=== PATIENT | male | born 1955 | race Caucasian/White ===

== ENCOUNTER 2017-02-19 07:28 | Inpatient (IN) | payer OTHER ==
[2017-02-19 07:28] VITALS: PULSE 128
[2017-02-19] MEDS ORDERED: Sodium Chloride 0.9% 1,000 ML IV STA (08:05)
[2017-02-19] MEDS ORDERED: Piperacillin/Tazobact 3.375 GM in Sodium Chloride 0.9% 100 ML IVPB STA (08:06)
--- NOTE | 2017-02-19 08:18 | ED PDOC ---
HPI: General Adult Time Seen by Provider: 02/19/17 07:35 Chief Complaint (Provider): lethargy History Per: Other (shelter ) History/Exam Limitations: clinical condition Onset/Duration Of Symptoms: Other (this morning ) Have you had recent travel within the past 21 days to any of the following countries: [place], [place], [place] or [place]?: No Additional Complaint(s): Edwin Anand is a 61 year old male, with an extensive previous medical history including osteomielitis, bipolar disorder, diabetes, pulmonary embolism s/p IVC filter, cardiac arrhythmia, paraplegia, sacral decubitus ulcer, colostomy and a recent intubation in [facility], who is sent to the ED from his shelter for lethargy that was noted this morning. Patient is unable to provide history secondary to lethargy. According to report provided from the shelter, patient was started on percocet yesterday and has multiple pressure ulcers with indwelling lopez catheter. PMD: none provide Past Medical History Reviewed: Historical Data, Nursing Documentation, Vital Signs Vital Signs: Last Vital Signs Temp 97.9 F 02/19/17 07:49 Pulse 70 02/19/17 09:39 Resp 16 02/19/17 07:49 BP 157/73 H 02/19/17 07:49 Pulse Ox 100 02/19/17 07:49 - Medical History PMH: Arthritis, Atrial Fibrillation, Benign Prostatic Hyperplasia, Bipolar Disorder, Cardia Arrhythmia, Depression, Diabetes, Gastritis, HTN, Hypercholesterolemia, Pulmonary Embolism Denies: Crohn's Disease, Diverticulitis, Gall Bladder Disease, HIV, Pancreatitis Other PMH: skin ulcers, osteomielitis - Surgical History Other surgeries: colostomy - Family History Family History: States: Unknown Family Hx - Living Arrangements Living Ar[facility]ements: [facility] - Immunization History Hx Tetanus Toxoid Vaccination: No Hx Influenza Vaccination: No Hx Pneumococcal Vaccination: No - Home Medications Home Medications: Ambulatory Orders Medication Instructions Recorded Acetaminophen [Tylenol 325mg tab] 650 mg PO Q6 12/20/16 Acetaminophen/Codeine 2 tab PO Q6H PRN 12/20/16 [Tylenol/Codeine 300 MG/30 MG] Albuterol/Ipratropium [Duoneb 3 3 ml IH Q6 12/20/16 mg/0.5 mg (3 ml) UD] Amino Acids/Protein Hydrolys 30 ml PO TID 12/20/16 [Pro-Stat Profile Liquid] Ascorbic Acid [C-500] 500 mg PO DAILY 12/20/16 Baclofen [Lioresal] 10 mg PO DAILY 12/20/16 Collagenase [Santyl] 250 units TP TID 12/20/16 Digoxin [Lanoxin] 125 mcg PO DAILY 12/20/16 Docusate [Colace] 100 mg PO DAILY 12/20/16 Epoetin Garry [Procrit] 10,000 unit IJ MWF 12/20/16 Ergocalciferol [Drisdol 50,000 50,000 iu PO DAILY 12/20/16 Intl Units Cap] Ertapenem [Invanz] 1 gm IV DAILY 12/20/16 Escitalopram [Lexapro] 5 mg PO DAILY 12/20/16 Ferrous Sulfate [Feosol] 325 mg PO DAILY 12/20/16 Guaifenesin [Adult Wal-Tussin] 100 mg PO Q6 PRN 12/20/16 Insulin Detemir [Levemir] 10 unit SC HS 12/20/16 Insulin Human Regular [Novolin R] 0 unit SC ACHS 12/20/16 Losartan [Cozaar] 100 mg PO DAILY 12/20/16 Multivitamin [Multivitamins] 1 tab PO DAILY 12/20/16 Nut.tx.gluc.intoler,Lac-Fr,Soy 237 ml PO TID 12/20/16 [Glucerna] OLANZapine [Zyprexa] 10 mg PO DAILY 12/20/16 Pantoprazole Sodium [Protonix] 40 mg PO DAILY 12/20/16 Polyethylene Glycol 3350 [Glycolax] 17 gm PO DAILY 12/20/16 Risperidone [Risperdal] 2 mg PO DAILY 12/20/16 Silver Sulfadiazine 1% [Silvadene 1 % TP HS 12/20/16 1%] Tamsulosin [Flomax] 0.4 mg PO DAILY 12/20/16 Aspirin [Ecotrin] 81 mg PO DAILY 01/15/17 Colistimethate [Coly-Mycin M] 150 mg IV Q36H vial 01/15/17 Epoetin Garry [Procrit] 10,000 unit SC QWK ml 01/15/17 Fluconazole [Diflucan] 200 mg PO BID tab 01/15/17 Insulin Aspart, Recombinant 0 unit SC ACHS unit 01/15/17 [Novolog] Losartan [Cozaar] 100 mg PO DAILY tab 01/15/17 Magnesium Oxide [Mag-Ox] 400 mg PO BID tab 01/15/17 Meropenem [Merrem IV] 500 mg IVPB Q12H vial 01/15/17 Pantoprazole [Protonix EC Tab] 40 mg PO DAILY ect 01/15/17 Potassium Chloride [K-Dur 20 mEq 20 meq PO DAILY tab 01/15/17 ER Tab] Rivaroxaban [Xarelto] 20 mg PO DAILY tab 01/15/17 Vitamin A & D [Vitamin A & D Oint 1 ea TOP BID 01/15/17 UD Foilpak] - Allergies Allergies/Adverse Reactions: Allergies Allergy/AdvReac Type Severity Reaction Status Date / Time levofloxacin [From Levaquin] Allergy SWELLING Verified 12/20/16 18:43 FISH AdvReac SWELLING Verified 12/20/16 18:43 Review of Systems Review Of Systems: ROS cannot be obtained secondary to pt's inabilty to answer questions. (history provided by shelter) Constitutional: Positive for: Other (lethargy ) Genitourinary Male: Positive for: Other (indwelling lopez catheter ) Skin: Positive for: Other (multiple ulcers ) Physical Exam - Reviewed Nursing Documentation Reviewed: Yes Vital Signs Reviewed: Yes - Physical Exam Appears: Positive for: Non-toxic. Negative for: Well (lethargic. responsive to painful stimuli by groaning ) Head Exam: Positive for: ATRAUMATIC, NORMAL INSPECTION, NORMOCEPHALIC Cardiovascular/Chest: Positive for: Irregularly Irregular Respiratory: Positive for: Rhonchi (bilaterally ). Negative for: Decreased Breath Sounds, Accessory Muscle Use, Wheezing, Respiratory Distress Gastrointestinal/Abdominal: Positive for: Bowel Sounds, Soft, Other (colostoy bag in place with brown stool in colostomy bag). Negative for: Tenderness, Mass , Distended, Guarding, Rebound Male Genital Exam: Positive for: other (indwelling lopez catheter draining cloudy urine. ) Extremity: Negative for: Normal ROM Neurologic/Psych: Positive for: Other (lethargy. quadriplegia with spasticity of the upper extremities ) Comments: Skin Exam: large 10 cm irregularly shaped sacral ulcer with granulated tissue and purulent base. 3 cm ulcer at the right hip with purulent material extremities with anterior excoriations and surrounding erythema right heel with 3 cm necrotic ulcer left heel with superficial ulceration and no discharge noted - Laboratory Results Result Diagrams: 02/19/17 08:30 02/19/17 08:30 - ECG ECG Rhythm: Positive for: Sinus Rhythm, Nonspecific Changes (ST) Rate: 70 (bpm) - Progress Re-evaluation Time: 09:00 Condition: Unchanged - Critical Care Total Time (In Min): 30 Medical Decision Making Medical Decision Making: Initial Impression: lethargy with multiple sources of possible sepsis including skin ulcers, indwelling lopez catheter and possible pneumonia. Patient was also started on opiate yesterday which would be the cause of lethargy. Patient will be worked up and treated for sepsis with IV vancomycin and Zosyn. Initial Plan: * VBG shock panel * EKG * labs * urine drug screen * CXR * IV NS 1,000 ml at 200 ml/hr * vancomycin 250 ml IV * zosyn 100 ml IV * blood culture * urine culture * wound culture * urinalysis * reevaluation 08:[address] Matthews who agrees with plan of treatment. Scribe Attestation: Documented by Surekha Garcia, acting as a scribe for Murali Ellsworth MD. Provider Scribe Attestation: All medical record entries made by the Scribe were at my direction and personally dictated by me. I have reviewed the chart and agree that the record accurately reflects my personal performance of the history, physical exam, medical decision making, and the department course for this patient. I have also personally directed, reviewed, and agree with the discharge instructions and disposition. Disposition - Clinical Impression Clinical Impression: Sepsis, UTI (urinary tract infection), Decubitus ulcer - Patient ED Disposition Is Patient to be Admitted: Yes - Disposition Disposition Time: 08:15 Condition: GUARDED - Pt Status Changed To: Hospital Disposition Of: Inpatient - Admit Certification Admit to Inpatient:: After my assessment, the patient will require hospitalization for at least two midnights. This is because of the severity of symptoms shown, intensity of services needed, and/or the medical risk in this patient being treated as an outpatient. - POA Present On Arrival: Pressure Ulcer
[2017-02-19] MEDS ORDERED: Vancomycin 1 g Inj ONE (09:07)
[2017-02-19] MEDS ORDERED: Piperacillin/Tazobact 3.375 gm Inj IVPB ONE (09:07)
[2017-02-19 09:23] LABS: BASO # 0.1 K/uL (0.0-0.2); BASO % 0.5 % (0.0-2.0); EOS # 0.2 K/uL (0.0-0.7); LYMPH # 1.1 K/uL (1.0-4.3); LYMPH % 9.7 % (20.0-40.0); MEAN CELL VOLUME 89.9 fl (80.0-94.0); MEAN CORPUSCULAR HEMOGLOBIN 29.3 pg (27.0-31.0); MEAN CORPUSCULAR HGB CONC 32.6 g/dL (33.0-37.0); MEAN PLATELET VOLUME 9.1 fl (7.2-11.7); MONO # 0.9 K/uL (0.0-0.8); MONO % 7.6 % (0.0-10.0); NEUT # 9.2 K/uL (1.8-7.0); NEUT % 80.2 % (50.0-75.0); NRBC % 0.1 % (0.0-0.0); PLATELET COUNT 234 K/uL (130-400); RED CELL DISTRIBUTION WIDTH 17.3 % (11.5-14.5); WHITE BLOOD COUNT 11.5 K/uL (4.8-10.8)
[2017-02-19 09:38] LABS: ALB/GLOB RATIO 0.6 (1.0-2.1); ALKALINE PHOSPHATASE 115 U/L (38-126); ALT/SGPT 28 U/L (21-72); AST/SGOT 23 U/L (17-59); BILIRUBIN,TOTAL 0.4 mg/dl (0.2-1.3); BLOOD UREA NITROGEN 24 mg/dl (9-20); CALCIUM 8.4 mg/dL (8.4-10.2); CARBON DIOXIDE 20 mmol/L (22-30); CHLORIDE 109 mmol/L (98-107); GFR AFRICAN-AMERICAN > 60; GLUCOSE,RANDOM 111 mg/dL (75-110); POTASSIUM 3.3 MMOL/L (3.6-5.0); SODIUM 138 mmol/l (132-148); TOTAL PROTEIN 7.2 G/DL (6.3-8.2)
[2017-02-19 09:40] LABS: VENOUS BLOOD GAS BASE EXCESS -4.3 mmol/L (0.0-2.0); VENOUS BLOOD GAS PCO2 48 mmHg (40-60); VENOUS BLOOD PH 7.28 (7.32-7.43)
[2017-02-19] MEDS ORDERED: Potassium CL 10mEq/100ml 100 ML IVPB ONE (09:43)
[2017-02-19 09:57] LABS: RBC URINE 18 /hpf (0-3); URINE BACTERIA FEW (<OCC); URINE BILIRUBIN NEGATIVE (NEGATIVE); URINE BLOOD MODERATE (NEGATIVE); URINE COLOR YELLOW (YELLOW); URINE GLUCOSE (UA) 50 mg/dL (Normal); URINE KETONE NEGATIVE (NEGATIVE); URINE LEUKOCYTE ESTERASE LARGE Leu/uL (Negative); URINE PROTEIN 100 mg/dL (NEGATIVE); URINE UROBILINOGEN 0.2-1.0 mg/dL (0.2-1.0); WBC CLUMPS FEW /hpf; WBC URINE 49 /hpf (0-5)
[2017-02-19 10:33] LABS: EOSINOPHIL 2 % (0-7); MYELOCYTE 1 % (0-0); NEUTROPHIL 81 % (42-75); TOTAL CELLS COUNTED 100
[2017-02-19 10:34] LABS: GIANT PLATELETS PRESENT
[2017-02-19] MEDS ORDERED: Oxycodone/Acetaminophen 5/325 mg Tab PO PRN (11:23)
[2017-02-19] MEDS ORDERED: Glucagon Recombinant 1 mg Inj IM PRN (11:32)
[2017-02-19 12:37] VITALS: BMI 28.7
[2017-02-19 12:56] LABS: MAGNESIUM 1.8 MG/DL (1.6-2.3); PHOSPHOROUS 3.9 mg/dl (2.5-4.5)
--- NOTE | 2017-02-19 13:18 | CARD ---
APPROVED REPORT EKG Measurement Heart [id number] <Conclusion> Normal sinus rhythm Normal ECG
--- NOTE | 2017-02-19 13:19 | RAD ---
HISTORY: cough COMPARISON: No prior. FINDINGS: LUNGS: Limited due to patient rotation. Left effusion or In situ left-sided PICC line with tip apparently in the SVC PLEURA: Question small chronic pleural thickening. . . No pneumothorax apparent. CARDIOVASCULAR: Possible cardiomegaly OSSEOUS STRUCTURES: No significant abnormalities. VISUALIZED UPPER ABDOMEN: Normal. OTHER FINDINGS: None. IMPRESSION: Limited study due to patient rotation. Questionable small left-sided effusion and/or chronic pleural thickening. . In situ PICC line
[2017-02-19] MEDS: Cefepime 2 GM in Sodium Chloride 0.9% 100 ML IVPB SCH ×2 (14:00→21:46)
--- NOTE | 2017-02-19 14:04 | CT ---
PROCEDURE: CT HEAD WITHOUT CONTRAST. HISTORY: code stroke ams COMPARISON: None available. TECHNIQUE: Axial computed tomography images were obtained through the head/brain without intravenous contrast. Radiation dose: Total exam DLP = 1510.26 mGy-cm. This CT exam was performed using one or more of the following dose reduction techniques: Automated exposure control, adjustment of the mA and/or kV according to patient size, and/or use of iterative reconstruction technique. FINDINGS: HEMORRHAGE: No acute parenchymal, subarachnoid or extra-axial hemorrhage. BRAIN: Mild chronic periventricular white matter ischemic changes. . Note made of a few small calcifications along the posterior cerebellum bilaterally of uncertain etiology. Mild generalized volume loss. VENTRICLES: No evidence of obstructive hydrocephalus. CALVARIUM: Unremarkable. PARANASAL SINUSES: Minimal mucosal thickening left chamber sphenoid sinus. MASTOID AIR CELLS: Unremarkable as visualized. No inflammatory changes. OTHER FINDINGS: None. IMPRESSION: No acute intracranial hemorrhage. Mild chronic white matter ischemic changes. Mild volume loss. Note that the possibility of a small hyperacute infarct may not be visualized on the initial CT imaging. Clinic correlation recommended. Findings discussed with Dr. Mejia at approximately 1:59 p.m. with written down and read back verification.
[2017-02-19 14:12] LABS: BASO # 0.1 K/uL (0.0-0.2); BASO % 0.5 % (0.0-2.0); EOS # 0.1 K/uL (0.0-0.7); HEMATOCRIT 30.5 % (35.0-51.0); LYMPH # 0.9 K/uL (1.0-4.3); LYMPH % 7.1 % (20.0-40.0); MEAN CELL VOLUME 89.5 fl (80.0-94.0); MEAN CORPUSCULAR HEMOGLOBIN 29.1 pg (27.0-31.0); MEAN CORPUSCULAR HGB CONC 32.6 g/dL (33.0-37.0); MEAN PLATELET VOLUME 8.4 fl (7.2-11.7); MONO # 0.8 K/uL (0.0-0.8); MONO % 6.7 % (0.0-10.0); NEUT # 10.4 K/uL (1.8-7.0); NEUT % 84.7 % (50.0-75.0); NRBC % 0.1 % (0.0-0.0); RED CELL DISTRIBUTION WIDTH 17.1 % (11.5-14.5); WHITE BLOOD COUNT 12.3 K/uL (4.8-10.8)
[2017-02-19 14:27] LABS: ALB/GLOB RATIO 0.6 (1.0-2.1); ALKALINE PHOSPHATASE 105 U/L (38-126); ALT/SGPT 29 U/L (21-72); AST/SGOT 26 U/L (17-59); BILIRUBIN,TOTAL 0.4 mg/dl (0.2-1.3); BLOOD UREA NITROGEN 25 mg/dl (9-20); CALCIUM 8.2 mg/dL (8.4-10.2); CARBON DIOXIDE 21 mmol/L (22-30); CHLORIDE 110 mmol/L (98-107); CHOLESTEROL 117 mg/dL (0-199); GFR AFRICAN-AMERICAN > 60; GLUCOSE,RANDOM 93 mg/dL (75-110); POTASSIUM 3.5 MMOL/L (3.6-5.0); SODIUM 139 mmol/l (132-148); TOTAL PROTEIN 6.7 G/DL (6.3-8.2)
--- NOTE | 2017-02-19 14:27 | PCM.RRTMUL ---
<Jonh Cisneros - Last Filed: 02/19/17 14:25> SENIOR QA ENGINEER Nurse Assessment - Situation SENIOR QA ENGINEER Responder Arrival Time:: 13:11 Location:: [address] [place] [address] Room Number:: [id number] SENIOR QA ENGINEER Reason for Call: Change in Mental Status SENIOR QA ENGINEER Called By: RN, Physician - IV IV Inserted during SENIOR QA ENGINEER?: No - Respiratory Oxygen Delivery Method:: Nasal Cannula - Ventilator Settings Ventilator Respiratory Rate Setting:: 14 Ventilator Tidal Volume Setting:: 500 - Diagnostic Test Ordered EKG:: Yes Chest X-Ray:: Yes CT Scan:: Yes (CODE STROKE HEAD W/O CONTRAST) - Stat Labs Ordered SENIOR QA ENGINEER Stat Labs Ordered:: CBC, BMP, PT/PTT, TROPONIN, LACTIC ACID, BLOOD C&S X2 - Vital Signs Blood Pressure:: 91/56 Pulse Rate:: 72 Respiratory Rate:: 18 Temperature:: 96.4 F - [place] Coma Scale Coma Scale Eye Opening:: To pain Coma Scale Motor:: Movement to pain stimulus Coma Scale Verbal:: No response Coma Scale Total:: 8 - Recommendations 5) SENIOR QA ENGINEER Level of Care Recommendations: Remain in current setting 6) Notifications: Attending Physician, Consultations (neurology) I.Reason for SENIOR QA ENGINEER - A) Acute Change in Patient: (Select all that apply): Acute change in mental status - Constitutional Appears: Non-toxic, No Acute Distress - Head Head Exam: ATRAUMATIC, NORMAL INSPECTION, NORMOCEPHALIC - Eyes Eye Exam: Normal appearance, PERRL - Respiratory Exam Respiratory Exam: Clear to Ausculation Bilateral, NORMAL BREATHING PATTERN - Cardiovascular Exam Cardiovascular Exam: REGULAR RHYTHM, RRR, +S1, +S2 - GI/Abdominal Exam GI & Abdominal Exam: Soft, Normal Bowel Sounds. absent: Tenderness - Neurological Exam Neurological Exam: Altered, Awake. absent: Alert, Oriented x3 - Extremities Exam Additional comments: multiple decubitus ulcers throughout lower extremities Plan - B. Assessment of Findings&Treatment Plan SENIOR QA ENGINEER called for change in mental status S: 61 year old M w/ PMHx of osteomyelitis, bipolar disorder, diabetes, pulmonary embolism s/p IVC filter, cardiac arrhythmia, paraplegia, sacral decubitus ulcer, colostomy and a recent intubation in [facility] was sent to the ED from senior care ([place]) due to lethargy. Patient was evaluated in ED, lethargic, with multiple decubiti, UTI and admitted to Telemetry. Patient was transferred to [facility] in same state. No fever or hemodynamic instability since arrival to ED. However, RN noted patient now awake though non-verbal and upper extremities contraction with involuntary movements. RN called senior care, apparently patient was alert/oriented and able to speak with staff. No CT Head result available. O: Vitals as above, stable, no abnormalities General: Awake, altered Eyes: PERRL, constricted pupils, blinks spontaneously Lungs: CTABL Heart: RRR, S1/S2 present Abdomen: Soft, non-tender, non-distended, BS present Neuro: Non-verbal, opens eyes to painful stimuli (sternal rub), involuntary movement of contracted upper extremities noted A/P: 61 yo male with multiple comorbidities including PE, arrythmia, paraplegia with AMS and involuntary contractions of upper extremities. Stroke vs Seizure vs Sepsis -CODE STROKE CALLED -CBC -CMP -LIPID PANEL -HGBA1C -PT/PTT/INR -TROPONIN -BLOOD CULTURE -LACTATE -EKG -EEG -CXR -CT HEAD W/O CONTRAST -NEUROLOGY CONSULTED, SPOKE WITH DR. PATEL REGARDING NEGATIVE ACUTE INTRACRANIAL BLEED RESULT OF CT HEAD, WILL COME EVALUATE PATIENT -NPO -CASE SEEN AND DISCUSSED WITH HOSPITALIST CURING PRESS OPERATOR NIHSS Stroke Scale - Date/Time Evaluation Performed Date Performed: 02/19/17 Time Performed: 13:15 When Was NIHSS Performed: Code Stroke - How Severe is the Stroke Level of Consciousness: 2=Obtunded LOC to Questions: 2=Neither correct LOC to commands: 2=Neither correct Best Gaze: 1=Partial gaze palsy Facial: 0=Normal Motor Arm - Left: 3=No effort against gravity (falls immediately) Motor Arm - Right: 3=No effort against gravity (falls immediately) Motor Leg - Left: 3=No effort against gravity (falls immediately) Motor Leg - Right: 3=No effort against gravity (falls immediately) <Hansa Carlisle - Last Filed: 02/19/17 15:08> NIHSS Stroke Scale - How Severe is the Stroke Limb Ataxia: 0=Absent Sensory: 2=Severe to total loss Best Language: 3=Mute Dysarthia: 2=Severe, near unintelligible or worse Extinction & Inattention (Neglect): 2=Profound neglect(does not recognize own hand or orients to one side) Attending/Attestation - Attestation I have personally seen and examined this patient.: Yes I have fully participated in the care of the patient.: Yes I have reviewed all pertinent clinical information, including history, physical exam and plan: Yes
[2017-02-19 15:16] LABS: THYROID STIMULATING HORMONE 3.32 mIU/ML (0.46-4.68)
--- NOTE | 2017-02-19 15:19 | RAD ---
PROCEDURE: CHEST RADIOGRAPH, 1 VIEW HISTORY: ams COMPARISON: Comparison chest 02/19/2017 FINDINGS: LUNGS: Study remain somewhat limited due to persistent left-sided patient rotation evaluation. In addition, there has been exclusion of both CP angles from the film. The suspect mild left basilar atelectasis. PLEURA: No pneumothorax or pleural fluid seen. CARDIOVASCULAR: Questionable cardiomegaly. OSSEOUS STRUCTURES: Degenerative changes of both shoulder girdles. VISUALIZED UPPER ABDOMEN: Normal. OTHER FINDINGS: None. IMPRESSION: Limited study. Due to patient rotation to the left side. Suspect mild left basilar atelectasis.
[2017-02-19 15:36] LABS: PARTIAL THROMBOPLASTIN TIME 30.8 Seconds (25.6-37.1)
--- NOTE | 2017-02-19 15:42 | EEG ---
DATE: 02/19/2017 This is an EEG. DIAGNOSIS: Altered mental status. MEDICATIONS: Reviewed via nurse's reconciliation sheet. CONDITION OF THIS RECORDING: Drowsy. INTERPRETATION: This is a 16-channel international recording. The background activity is composed o f 6-7 cycles per second. There was a small amount of beta activity of 16-20 cycles per second seen i n this tracing. There was increased amount of theta activity 5-7 cycles per second seen in this trac ing. Drowsiness was characterized by mixed beta and theta activities. Sleep was characterized by ve rtex transient waves, sleep spindles and bilateral slowing. Photic stimulation showed no change in t he tracing. paroxysmal activity noted in this recording. CONCLUSION: Abnormal electroencephalogram due to presence of diffuse slowing throughout the EEG cons istent with mild bilateral cerebral dysfunction. Please clinically correlate. No evidence of any se izure-like activity. Clint Kinney MD cc: [id number] TT: 02/19/2017 15:41:58 Confirmation # [id number] Dictation # [id number] cristobal
--- NOTE | 2017-02-19 16:02 | CON ---
DATE: 02/19/2017 CHIEF COMPLAINT: Altered mental status. HISTORY OF PRESENT ILLNESS: This is a 61-year-old man with history of osteomyelitis, bipolar disorde r, diabetes, pulmonary embolism, status post IVC filter, cardiac arrhythmia, paraplegia, sacral decub itus ulcers, colostomy, recently was intubated in [facility] and sent home, was [facility] the ER to the [facility] in [place] because of lethargy. The patient was given Percocet at the [facility] for pain. He is paraplegic and has spasticity residual. He is very lethargic but opens eyes to voice, tracks to voice. His EEG was done and showed diffuse slowing throughout the EEG, no evide nce of epileptiform activity, consistent with bilateral cerebral dysfunction. He was found to have e levated white count of 12.3. He has urinary tract infection. He is hypokalemic as well as elevated BUN and dehydrated and he has drop in blood pressures of 91/56. PAST MEDICAL HISTORY: History of diabetes, history of PE, status post IVC filter, paraplegia, cardia c arrhythmia, sacral decubitus ulcer, colostomy, recent history of intubation, status post IVC filter , osteomyelitis, bipolar disorder, type 2 diabetes mellitus. REVIEW OF SYSTEMS: A 14-point review of systems is negative except the HPI. ALLERGIES: LEVOFLOXACIN AND FISH. MEDICATIONS: Reviewed via nurse's reconciliation sheet. SOCIAL HISTORY: No illicit drug use, smoking, or ETOH abuse. FAMILY HISTORY: Noncontributory. PHYSICAL EXAMINATION: VITAL SIGNS: Temperature 96.4, pulse rate 72, blood pressure 91/56, respiratory rate of 18, oxygen 9 3% via room air. GENERAL: The patient is sitting up in bed, drowsy, no acute distress. HEENT: Atraumatic, normocephalic. PERRLA. Extraocular muscles intact. NECK: Supple, no JVD, no adenopathy noted. LUNGS: Clear to auscultation. No adventitious sounds. HEART: S1, S2, normal rate and rhythm. No murmurs, rubs, or gallops. ABDOMEN: Soft, nontender, nondistended. Bowel sounds present. EXTREMITIES: No clubbing, no cyanosis. Peripheral pulses 2+ felt bilaterally. He has 1+ trace sweta a. He has multiple sacral decubiti seen on buttocks. NEUROLOGIC: The patient is drowsy, no distress. Speech is hypophonic. Cranial nerves II-XII are in tact. Motor exam: Paraplegic as well as increased spasticity in the upper and lower extremities. Se nsory exam: Withdraws to localized noxious stimulus. Toes are downgoing bilaterally. DTRs are 1+ t hroughout, absent at the ankles. COORDINATION AND GAIT: Deferred for now. LABORATORY DATA: WBC is 12.3, hemoglobin 9.9, hematocrit 30.5, platelet count 247. Sodium 139, pota ssium 3.5, chloride 110, carbon dioxide 21, BUN of 25, creatinine 0.9, random glucose of 93. ASSESSMENT AND PLAN: This is a 61-year-old man with history of type 2 diabetes mellitus, history of osteomyelitis, history of atrial fibrillation, history of pulmonary embolism, status post inferior ve na cava filter, bipolar disorder, came in being lethargic at the [facility] and was given Per cocet for sacral decubitus pain. Currently, he has elevated white count and had low systolic a nd diastolic blood pressures and low electrolytes, was very lethargic and code stroke was called. Th is is not a code stroke. This is more of a toxic metabolic encephalopathy. His EEG showed mild diff use slowing without any epileptiform activity consistent with bilateral cerebral dysfunction. Likely his altered mental status is secondary to toxic metabolic encephalopathy superimposed on underlying deconditioned state and chronic medical conditions. He is quadriplegic. He is responding neurologic ally to simple commands and follows commands to voice and tracks. At this time, recommend: 1. Get blood cultures. 2. He has underlying urinary tract infection. Give prophylactic antibiotics. 3. Monitor his electrolytes and correct accordingly. 4. Keep his blood pressures systolic above 120. He likely had transient cerebral hypoperfusion to t he brain which also caused him to be lethargic. 5. Stabilize the patient and repeat a CAT scan in 24 hours. At this time, continue with current pre sent medical management. Thank you for this consult. Clint Kinney MD cc: [id number] TT: 02/19/2017 16:02:14 Confirmation # [id number] Dictation # [id number] rn
[2017-02-19] MEDS: Insulin Regular 100 units/ml SC SCH ×2 (17:00→21:48)
[2017-02-19] MEDS: Sodium Chloride 0.9% 1,000 ML IV SCH (17:00)
[2017-02-19] MEDS: Magnesium Oxide 400 mg Tab UD PO SCH (18:00)
--- NOTE | 2017-02-19 19:46 | CP.PCM.CON ---
History of Present Illness - History of Present Illness History of Present Illness: CONSULT NOTE FOR DR. QUINTEROS 61M presents to [facility] with altered mental status. Surgery consulted for Sacral/ gluteal decubitus. Patient is paraplegic and live in a senior care [facility]. According to employees of [facility], patient was well aware and was able to converse with them while in senior care. He was given a dose of percocet at the senior care and then began to have altered mental status. He is current awake but does not respond to commands. PMH/PSH: DM, PE, paraplegic, osteomyelitis, bipolar PSH: Colostomy, IVC Filter Social: denies tobacco, alcohol, illicit drug use as per chart Allergies: Levofloxacin and fish as per chart Past Patient History - Infectious Disease Hx of Infectious Diseases: C.diff, MRSA - Past Medical History & Family History Past Medical History?: Yes - Past Social History Smoking Status: Never Smoked - CARDIAC Hx Atrial Fibrillation: Yes Hx Cardia Arrhythmia: Yes Hx Hypercholesterolemia: Yes Hx Hypertension: Yes - PULMONARY Hx Pulmonary Embolism: Yes - RENAL Hx Renal Failure: Yes - ENDOCRINE/METABOLIC Hx Endocrine Disorders: Yes - HEMATOLOGICAL/ONCOLOGICAL Hx Human Immunodeficiency Virus (HIV): No - MUSCULOSKELETAL/RHEUMATOLOGICAL Hx Arthritis: Yes - GASTROINTESTINAL Hx Crohn's Disease: No Hx Diverticulitis: No Hx Gall Bladder Disease: No Hx Gastritis: Yes Hx Pancreatitis: No - GENITOURINARY/GYNECOLOGICAL Hx Genitourinary Disorders: Yes - PSYCHIATRIC Hx Bipolar Disorder: Yes Hx Depression: Yes - SURGICAL HISTORY Hx Orthopedic Surgery: Yes (Right femoral nailing) - ANESTHESIA Hx Anesthesia: Yes Hx Anesthesia Reactions: No Meds Allergies/Adverse Reactions: Allergies Allergy/AdvReac Type Severity Reaction Status Date / Time levofloxacin [From Levaquin] Allergy SWELLING Verified 12/20/16 18:43 FISH AdvReac SWELLING Verified 12/20/16 18:43 - Medications Medications: Current Medications Apixaban (Eliquis) 2.5 mg PO BID@0900,2100 [facility] PRN Reason: Protocol Baclofen (Lioresal) 10 mg PO DAILY [facility] Collagenase (Santyl) 1 applic TOP DAILY [facility] Cyanocobalamin (Vitamin B12 1000 Mcg Tab) 1,000 mcg PO DAILY [facility] Dextrose (Dextrose 50% Inj) 0 ml IV STAT PRN; Protocol PRN Reason: Hyglycemia Protocol Dextrose (Glutose 15) 0 gm PO ONCE PRN; Protocol PRN Reason: Hypoglycemia Protocol Escitalopram Oxalate (Lexapro) 5 mg PO DAILY [facility] Folic Acid (Folic Acid) 1 mg PO DAILY [facility] Glucagon (Glucagen Diagnostic Kit) 0 mg IM STAT PRN; Protocol PRN Reason: Hypoglycemia Protocol Vancomycin HCl 750 mg/ Sodium (Chloride) 250 mls @ 166.667 mls/hr IVPB Q12 [facility] Cefepime HCl 2 gm/ Sodium (Chloride) 100 mls @ 100 mls/hr IVPB Q12 [facility] Last Admin: 02/19/17 14:00 Dose: 100 mls/hr Sodium Chloride (Sodium Chloride 0.9%) 1,000 mls @ 150 mls/hr IV .Q6H40M [facility] Stop: 02/20/17 16:14 Last Admin: 02/19/17 17:00 Dose: 150 mls/hr Insulin Detemir (Levemir) 10 units SC HS [facility] Insulin Human Regular (Humulin R) 0 units SC ACHS [facility] PRN Reason: Protocol Last Admin: 02/19/17 17:00 Dose: Not Given Magnesium Oxide (Mag-Ox) 400 mg PO BID [facility] Last Admin: 02/19/17 18:00 Dose: Not Given Metoprolol Tartrate (Lopressor) 12.5 mg PO Q12H [facility] Last Admin: 02/19/17 13:30 Dose: Not Given Olanzapine (Zyprexa) 10 mg PO DAILY [facility] Pantoprazole Sodium (Protonix Ec Tab) 40 mg PO DAILY [facility] Potassium Chloride (K-Dur 20 Meq Er Tab) 20 meq PO DAILY [facility] Tamsulosin HCl (Flomax) 0.4 mg PO DAILY [facility] Zinc Sulfate (Zinc Sulfate 220 Mg Cap) 220 mg PO DAILY [facility] Physical Exam - Constitutional Appears: Chronically Ill Additional comments: resting, comfortable - Head Exam Head Exam: ATRAUMATIC - ENT Exam ENT Exam: Mucous Membranes Dry - Respiratory Exam Respiratory Exam: Clear to Auscultation Bilateral, NORMAL BREATHING PATTERN - Cardiovascular Exam Cardiovascular Exam: REGULAR RHYTHM, +S1, +S2 - GI/Abdominal Exam GI & Abdominal Exam: Soft. absent: Distended, Firm, Guarding, Rebound, Rigid, Tenderness - Rectal Exam Additional comments: - stage 4 gluteal and sacral ulcers, connected and encompassing the whole gluteal region necrotic tissue on multiple area of wound. right hip stage 3 ulcer. - current dressing on - wet to dry - Extremities Exam Additional comments: LE/UE muscles wasting. UE contractures - Neurological Exam Neurological exam: Altered - Psychiatric Exam Psychiatric exam: Agitated - Skin Additional comments: Large stage 4 sacral/gluteal ulcer Results - Vital Signs Recent Vital Signs: Last Vital Signs Temp 97.2 F L 02/19/17 19:42 Pulse 64 02/19/17 19:42 Resp 20 02/19/17 19:42 BP 127/76 02/19/17 19:42 Pulse Ox 100 02/19/17 19:42 - Labs Result Diagrams: 02/21/17 03:50 02/21/17 03:50 Labs: Laboratory Results - last 24 hr 02/19/17 02/19/17 02/19/17 09:16 09:16 09:42 WBC RBC Hgb Hct MCV MCH MCHC RDW Plt Count MPV Neut % (Auto) Lymph % (Auto) Hall % (Auto) Eos % (Auto) Baso % (Auto) Neut # Lymph # Hall # Eos # Baso # PT INR APTT pO2 35 VBG pH 7.28 L VBG pCO2 48 VBG HCO3 21.5 VBG Total CO2 24.1 VBG O2 Sat (Calc) 99.5 H VBG Base Excess -4.3 L VBG Potassium 3.2 L A-a O2 Difference 55.0 Sodium 141.0 Chloride 111.0 H Glucose 125 H Lactate 0.9 FiO2 21.0 Blood Gas Comments Vbg Crit Value Called To Dr vera purdy Crit Value Called By 15 Crit Value Read Back Y Blood Gas Notified Time 945 Potassium Carbon Dioxide Anion Gap BUN Creatinine Est GFR ( Amer) Est GFR (Non-Af Amer) POC Glucose (mg/dL) Random Glucose Lactic Acid Calcium Phosphorus Magnesium Total Bilirubin AST ALT Alkaline Phosphatase Ammonia Troponin I NT-Pro-B Natriuret Pep Total Protein Albumin Globulin Albumin/Globulin Ratio Triglycerides Cholesterol LDL Cholesterol Direct HDL Cholesterol Vitamin B12 TSH 3rd Generation Venous Blood Potassium 3.2 L Urine Color Yellow Urine Clarity Cloudy Urine pH 6.0 Ur Specific [place] 1.015 Urine Protein 100 Urine Glucose (UA) 50 Urine Ketones Negative Urine Blood Moderate Urine Nitrate Negative Urine Bilirubin Negative Urine Urobilinogen 0.2-1.0 Ur Leukocyte Esterase Large Urine RBC (Auto) 18 H Urine WBC Clumps (Auto) Few H Urine Microscopic WBC 49 H Ur Squamous Epith Cells 1 Amorphous Sediment Moderate H Urine Bacteria Few H Hyaline Casts 0-2 Urine Opiates Screen Negative Urine Methadone Screen Negative Ur Barbiturates Screen Negative Ur Phencyclidine Scrn Negative Ur Amphetamines Screen Negative U Benzodiazepines Scrn Negative U Oth Cocaine Metabols Negative U Cannabinoids Screen Negative 02/19/17 02/19/17 02/19/17 12:13 12:30 12:30 WBC RBC Hgb Hct MCV MCH MCHC RDW Plt Count MPV Neut % (Auto) Lymph % (Auto) Hall % (Auto) Eos % (Auto) Baso % (Auto) Neut # Lymph # Hall # Eos # Baso # PT INR APTT pO2 VBG pH VBG pCO2 VBG HCO3 VBG Total CO2 VBG O2 Sat (Calc) VBG Base Excess VBG Potassium A-a O2 Difference Sodium Chloride Glucose Lactate FiO2 Blood Gas Comments Crit Value Called To Crit Value Called By Crit Value Read Back Blood Gas Notified Time Potassium Carbon Dioxide Anion Gap BUN Creatinine Est GFR ( Amer) Est GFR (Non-Af Amer) POC Glucose (mg/dL) 110 Random Glucose Lactic Acid 1.1 Calcium Phosphorus 3.9 Magnesium 1.8 Total Bilirubin AST ALT Alkaline Phosphatase Ammonia Troponin I NT-Pro-B Natriuret Pep Total Protein Albumin Globulin Albumin/Globulin Ratio Triglycerides Cholesterol LDL Cholesterol Direct HDL Cholesterol Vitamin B12 TSH 3rd Generation Venous Blood Potassium Urine Color Urine Clarity Urine pH Ur Specific [place] Urine Protein Urine Glucose (UA) Urine Ketones Urine Blood Urine Nitrate Urine Bilirubin Urine Urobilinogen Ur Leukocyte Esterase Urine RBC (Auto) Urine WBC Clumps (Auto) Urine Microscopic WBC Ur Squamous Epith Cells Amorphous Sediment Urine Bacteria Hyaline Casts Urine Opiates Screen Urine Methadone Screen Ur Barbiturates Screen Ur Phencyclidine Scrn Ur Amphetamines Screen U Benzodiazepines Scrn U Oth Cocaine Metabols U Cannabinoids Screen 02/19/17 02/19/17 02/19/17 13:33 14:00 14:08 WBC 12.3 H RBC 3.41 L Hgb 9.9 L Hct 30.5 L MCV 89.5 MCH 29.1 MCHC 32.6 L RDW 17.1 H Plt Count 247 MPV 8.4 Neut % (Auto) 84.7 H Lymph % (Auto) 7.1 L Hall % (Auto) 6.7 Eos % (Auto) 1.0 Baso % (Auto) 0.5 Neut # 10.4 H Lymph # 0.9 L Hall # 0.8 Eos # 0.1 Baso # 0.1 PT INR APTT pO2 VBG pH VBG pCO2 VBG HCO3 VBG Total CO2 VBG O2 Sat (Calc) VBG Base Excess VBG Potassium A-a O2 Difference Sodium Chloride Glucose Lactate FiO2 Blood Gas Comments Crit Value Called To Crit Value Called By Crit Value Read Back Blood Gas Notified Time Potassium Carbon Dioxide Anion Gap BUN Creatinine Est GFR ( Amer) Est GFR (Non-Af Amer) POC Glucose (mg/dL) 120 H Random Glucose Lactic Acid Calcium Phosphorus Magnesium Total Bilirubin AST ALT Alkaline Phosphatase Ammonia 11 L Troponin I NT-Pro-B Natriuret Pep Total Protein Albumin Globulin Albumin/Globulin Ratio Triglycerides Cholesterol LDL Cholesterol Direct HDL Cholesterol Vitamin B12 TSH 3rd Generation Venous Blood Potassium Urine Color Urine Clarity Urine pH Ur Specific [place] Urine Protein Urine Glucose (UA) Urine Ketones Urine Blood Urine Nitrate Urine Bilirubin Urine Urobilinogen Ur Leukocyte Esterase Urine RBC (Auto) Urine WBC Clumps (Auto) Urine Microscopic WBC Ur Squamous Epith Cells Amorphous Sediment Urine Bacteria Hyaline Casts Urine Opiates Screen Urine Methadone Screen Ur Barbiturates Screen Ur Phencyclidine Scrn Ur Amphetamines Screen U Benzodiazepines Scrn U Oth Cocaine Metabols U Cannabinoids Screen 02/19/17 02/19/17 02/19/17 14:08 14:08 16:03 WBC RBC Hgb Hct MCV MCH MCHC RDW Plt Count MPV Neut % (Auto) Lymph % (Auto) Hall % (Auto) Eos % (Auto) Baso % (Auto) Neut # Lymph # Hall # Eos # Baso # PT 15.1 H INR 1.3 H APTT 30.8 pO2 VBG pH VBG pCO2 VBG HCO3 VBG Total CO2 VBG O2 Sat (Calc) VBG Base Excess VBG Potassium A-a O2 Difference Sodium 139 Chloride 110 H Glucose Lactate FiO2 Blood Gas Comments Crit Value Called To Crit Value Called By Crit Value Read Back Blood Gas Notified Time Potassium 3.5 L Carbon Dioxide 21 L Anion Gap 12 BUN 25 H Creatinine 0.9 Est GFR ( Amer) > 60 Est GFR (Non-Af Amer) > 60 POC Glucose (mg/dL) 112 H Random Glucose 93 Lactic Acid Calcium 8.2 L Phosphorus Magnesium Total Bilirubin 0.4 AST 26 ALT 29 Alkaline Phosphatase 105 Ammonia Troponin I 0.0450 NT-Pro-B Natriuret Pep 1090 H Total Protein 6.7 Albumin 2.5 L Globulin 4.1 H Albumin/Globulin Ratio 0.6 L Triglycerides 96 Cholesterol 117 LDL Cholesterol Direct 58 HDL Cholesterol 26 L Vitamin B12 TSH 3rd Generation Venous Blood Potassium Urine Color Urine Clarity Urine pH Ur Specific [place] Urine Protein Urine Glucose (UA) Urine Ketones Urine Blood Urine Nitrate Urine Bilirubin Urine Urobilinogen Ur Leukocyte Esterase Urine RBC (Auto) Urine WBC Clumps (Auto) Urine Microscopic WBC Ur Squamous Epith Cells Amorphous Sediment Urine Bacteria Hyaline Casts Urine Opiates Screen Urine Methadone Screen Ur Barbiturates Screen Ur Phencyclidine Scrn Ur Amphetamines Screen U Benzodiazepines Scrn U Oth Cocaine Metabols U Cannabinoids Screen 02/19/17 17:10 WBC RBC Hgb Hct MCV MCH MCHC RDW Plt Count MPV Neut % (Auto) Lymph % (Auto) Hall % (Auto) Eos % (Auto) Baso % (Auto) Neut # Lymph # Hall # Eos # Baso # PT INR APTT pO2 VBG pH VBG pCO2 VBG HCO3 VBG Total CO2 VBG O2 Sat (Calc) VBG Base Excess VBG Potassium A-a O2 Difference Sodium Chloride Glucose Lactate FiO2 Blood Gas Comments Crit Value Called To Crit Value Called By Crit Value Read Back Blood Gas Notified Time Potassium Carbon Dioxide Anion Gap BUN Creatinine Est GFR ( Amer) Est GFR (Non-Af Amer) POC Glucose (mg/dL) Random Glucose Lactic Acid Calcium Phosphorus Magnesium Total Bilirubin AST ALT Alkaline Phosphatase Ammonia Troponin I NT-Pro-B Natriuret Pep Total Protein Albumin Globulin Albumin/Globulin Ratio Triglycerides Cholesterol LDL Cholesterol Direct HDL Cholesterol Vitamin B12 714 TSH 3rd Generation 3.32 Venous Blood Potassium Urine Color Urine Clarity Urine pH Ur Specific [place] Urine Protein Urine Glucose (UA) Urine Ketones Urine Blood Urine Nitrate Urine Bilirubin Urine Urobilinogen Ur Leukocyte Esterase Urine RBC (Auto) Urine WBC Clumps (Auto) Urine Microscopic WBC Ur Squamous Epith Cells Amorphous Sediment Urine Bacteria Hyaline Casts Urine Opiates Screen Urine Methadone Screen Ur Barbiturates Screen Ur Phencyclidine Scrn Ur Amphetamines Screen U Benzodiazepines Scrn U Oth Cocaine Metabols U Cannabinoids Screen Assessment & Plan - Assessment and Plan (Free Text) Assessment: 61M with large stage 4 sacral/gluteal ulcer Plan: - Santyl applied to area with [id number], ABD and tape - reevaluated in AM with Attending - consider wound vac - turn patient Q2 Further recs discuss with Dr Gurpreet Finn, PGY1
[2017-02-19] MEDS: Insulin Detemir 100 Units/ml Inj SC SCH (23:23)
[2017-02-20] MEDS: Sodium Chloride 0.9% 1,000 ML IV SCH ×5 (00:35→16:53)
[2017-02-20 06:48] LABS: ALB/GLOB RATIO 0.6 (1.0-2.1); ALKALINE PHOSPHATASE 85 U/L (38-126); ALT/SGPT 25 U/L (21-72); AST/SGOT 17 U/L (17-59); BILIRUBIN,TOTAL 0.3 mg/dl (0.2-1.3); BLOOD UREA NITROGEN 27 mg/dl (9-20); CALCIUM 7.6 mg/dL (8.4-10.2); CARBON DIOXIDE 18 mmol/L (22-30); CHLORIDE 115 mmol/L (98-107); GFR AFRICAN-AMERICAN > 60; GLUCOSE,RANDOM 84 mg/dL (75-110); MAGNESIUM 1.8 MG/DL (1.6-2.3); POTASSIUM 3.3 MMOL/L (3.6-5.0); SODIUM 140 mmol/l (132-148); TOTAL PROTEIN 5.9 G/DL (6.3-8.2)
[2017-02-20] MEDS: Insulin Regular 100 units/ml SC SCH ×4 (06:49→22:30)
[2017-02-20 07:50] LABS: HEMATOCRIT 28.9 % (35.0-51.0); MEAN CELL VOLUME 89.9 fl (80.0-94.0); MEAN CORPUSCULAR HEMOGLOBIN 29.3 pg (27.0-31.0); MEAN CORPUSCULAR HGB CONC 32.6 g/dL (33.0-37.0); RED CELL DISTRIBUTION WIDTH 17.1 % (11.5-14.5); WHITE BLOOD COUNT 10.1 K/uL (4.8-10.8)
[2017-02-20 08:08] LABS: ALB/GLOB RATIO 0.6 (1.0-2.1); ALKALINE PHOSPHATASE 88 U/L (38-126); ALT/SGPT 25 U/L (21-72); AST/SGOT 18 U/L (17-59); BILIRUBIN,TOTAL 0.3 mg/dl (0.2-1.3); BLOOD UREA NITROGEN 27 mg/dl (9-20); CALCIUM 7.8 mg/dL (8.4-10.2); CARBON DIOXIDE 17 mmol/L (22-30); CHLORIDE 115 mmol/L (98-107); GFR AFRICAN-AMERICAN > 60; GLUCOSE,RANDOM 83 mg/dL (75-110); MAGNESIUM 1.8 MG/DL (1.6-2.3); PHOSPHOROUS 4.1 mg/dl (2.5-4.5); POTASSIUM 3.7 MMOL/L (3.6-5.0); SODIUM 140 mmol/l (132-148); TOTAL PROTEIN 6.1 G/DL (6.3-8.2)
[2017-02-20] MEDS: Santyl Collagenase OINTMENT TOP SCH ×2 (08:16→16:31)
[2017-02-20] MEDS: Cefepime 2 GM in Sodium Chloride 0.9% 100 ML IVPB SCH ×2 (08:16→21:09)
[2017-02-20] MEDS: Magnesium Oxide 400 mg Tab UD PO SCH ×2 (08:22→16:50)
[2017-02-20] MEDS: Potassium Chloride 20 mEq ER Tab PO SCH (08:22)
[2017-02-20] MEDS: Pantoprazole 40 mg EC Tab PO SCH (08:23)
--- NOTE | 2017-02-20 08:54 | CP.PCM.PN ---
Subjective - Date & Time of Evaluation Date of Evaluation: 02/20/17 Time of Evaluation: 07:15 - Subjective Subjective: General Surgery progress note Patient s/e at bedside this AM. Patient is awake, opening and closing eyes spontaneously, but not responsive to verbal stimuli. Does not appear to be in any discomfort Objective - Vital Signs/Intake and Output Vital Signs (last 24 hours): Temp Pulse Resp BP Pulse Ox 97.9 F 69 20 108/51 L 99 02/20/17 08:00 02/20/17 08:00 02/20/17 08:00 02/20/17 08:00 02/20/17 08:00 - Medications Medications: Current Medications Apixaban (Eliquis) 2.5 mg PO BID@0900,2100 [facility] PRN Reason: Protocol Last Admin: 02/20/17 08:21 Dose: Not Given Baclofen (Lioresal) 10 mg PO DAILY [facility] Last Admin: 02/20/17 08:22 Dose: Not Given Collagenase (Santyl) 1 applic TOP DAILY [facility] Last Admin: 02/20/17 08:16 Dose: 1 applic Cyanocobalamin (Vitamin B12 1000 Mcg Tab) 1,000 mcg PO DAILY [facility] Last Admin: 02/20/17 08:23 Dose: Not Given Dextrose (Dextrose 50% Inj) 0 ml IV STAT PRN; Protocol PRN Reason: Hyglycemia Protocol Dextrose (Glutose 15) 0 gm PO ONCE PRN; Protocol PRN Reason: Hypoglycemia Protocol Escitalopram Oxalate (Lexapro) 5 mg PO DAILY [facility] Last Admin: 02/20/17 08:22 Dose: Not Given Folic Acid (Folic Acid) 1 mg PO DAILY [facility] Last Admin: 02/20/17 08:22 Dose: Not Given Glucagon (Glucagen Diagnostic Kit) 0 mg IM STAT PRN; Protocol PRN Reason: Hypoglycemia Protocol Vancomycin HCl 750 mg/ Sodium (Chloride) 250 mls @ 166.667 mls/hr IVPB Q12 [facility] Last Admin: 02/20/17 08:16 Dose: 166.667 mls/hr Cefepime HCl 2 gm/ Sodium (Chloride) 100 mls @ 100 mls/hr IVPB Q12 [facility] Last Admin: 02/20/17 08:16 Dose: 100 mls/hr Sodium Chloride (Sodium Chloride 0.9%) 1,000 mls @ 150 mls/hr IV .Q6H40M [facility] Stop: 02/20/17 16:14 Last Admin: 02/20/17 06:49 Dose: 150 mls/hr Insulin Detemir (Levemir) 10 units SC HS [facility] Last Admin: 02/19/17 23:23 Dose: Not Given Insulin Human Regular (Humulin R) 0 units SC [facility] PRN Reason: Protocol Last Admin: 02/20/17 06:49 Dose: Not Given Magnesium Oxide (Mag-Ox) 400 mg PO BID [facility] Last Admin: 02/20/17 08:22 Dose: Not Given Metoprolol Tartrate (Lopressor) 12.5 mg PO Q12H [facility] Last Admin: 02/19/17 23:23 Dose: Not Given Olanzapine (Zyprexa) 10 mg PO DAILY [facility] Last Admin: 02/20/17 08:23 Dose: Not Given Pantoprazole Sodium (Protonix Ec Tab) 40 mg PO DAILY [facility] Last Admin: 02/20/17 08:23 Dose: Not Given Potassium Chloride (K-Dur 20 Meq Er Tab) 20 meq PO DAILY [facility] Last Admin: 02/20/17 08:22 Dose: Not Given Tamsulosin HCl (Flomax) 0.4 mg PO DAILY [facility] Last Admin: 02/20/17 08:22 Dose: Not Given Zinc Sulfate (Zinc Sulfate 220 Mg Cap) 220 mg PO DAILY [facility] Last Admin: 02/20/17 08:23 Dose: Not Given - Labs Labs: 02/20/17 07:35 02/20/17 07:35 PT 15.1 Seconds (9.8-13.1) H 02/19/17 14:08 INR 1.3 (0.9-1.2) H 02/19/17 14:08 APTT 30.8 Seconds (25.6-37.1) 02/19/17 14:08 - Constitutional Appears: Non-toxic, No Acute Distress, Older Than Stated Age, Chronically Ill - Head Exam Head Exam: ATRAUMATIC, NORMOCEPHALIC - Eye Exam Eye Exam: Normal appearance. absent: Conjunctival injection, Scleral icterus - ENT Exam ENT Exam: Mucous Membranes Moist, Normal Oropharynx - Respiratory Exam Respiratory Exam: NORMAL BREATHING PATTERN. absent: Accessory Muscle Use, Respiratory Distress - GI/Abdominal Exam GI & Abdominal Exam: Soft. absent: Distended, Tenderness Additional comments: Colostomy in L abdomen with soft stool output - Extremities Exam Extremities Exam: absent: Pedal Edema Additional comments: lower legs dressed in bandages C/D/I. Feet have sores on the toes - Back Exam Additional comments: Large stage 4 sacral decubitus ulcer approximately [id number] with a bed of healthy granulation tissue. Also a separate unstageable ulcer on the right hip over the grater trochanter - Neurological Exam Neurological Exam: Altered, Awake - Psychiatric Exam Psychiatric exam: Flat Affect - Skin Additional comments: Skin warm, dry, intact, except as noted in back and lower extremity exam Assessment and Plan - Assessment and Plan (Free Text) Assessment: 61M with PMH of quadriplegia and colostomy with chronic large stage 4 sacral/ gluteal ulcer afebrile, VSS Leukocytosis resolved Sacral decubitus ulcer with healthy granulation tissue Plan: - continue IVF - Continue antibiotics per ID - Turn Q2, air mattress, wound care consult - Podiatry consult for lower extremity wound - further rec per Dr. Gurpreet Cruz, PGY1
[2017-02-20] MEDS ORDERED: Sodium Chloride 0.9% 1,000 ML IV SCH (11:15)
--- NOTE | 2017-02-20 11:18 | CP.PCM.HP ---
History of Present Illness - History of Present Illness History of Present Illness: This is a 61 y/o male admitted for increasing lethargy at the [facility]. patient was alert and oriented last week Claims that lethargy started after he was given Percocet. At the ER he was noted to be lethargic and could not give further information. He opens his eyes but does not respond to verbal stimulus. He has a hx of paraplegia, pulm embolism HTN Noted multiple sacral decubiti ulcers and lower ext wounds bilateral ..Has colostomy bag. At the Er he was noted to have turbid urine. Present on Admission - Present on Admission Any Indicators Present on Admission: No History of DVT/PE: Yes History of Uncontrolled Diabetes: No Urinary Catheter: No Decubitus Ulcer Present: Yes Review of Systems - Respiratory Respiratory: Cough Past Patient History - Infectious Disease Hx of Infectious Diseases: C.diff, MRSA - Past Medical History & Family History Past Medical History?: Yes - Past Social History Smoking Status: Never Smoked - CARDIAC Hx Atrial Fibrillation: Yes Hx Cardia Arrhythmia: Yes Hx Hypercholesterolemia: Yes Hx Hypertension: Yes - PULMONARY Hx Pulmonary Embolism: Yes - RENAL Hx Renal Failure: Yes - ENDOCRINE/METABOLIC Hx Diabetes Mellitus Type 2: Yes - HEMATOLOGICAL/ONCOLOGICAL Hx Human Immunodeficiency Virus (HIV): No - MUSCULOSKELETAL/RHEUMATOLOGICAL Hx Arthritis: Yes - GASTROINTESTINAL Hx Crohn's Disease: No Hx Diverticulitis: No Hx Gall Bladder Disease: No Hx Gastritis: Yes Hx Pancreatitis: No - GENITOURINARY/GYNECOLOGICAL Hx Genitourinary Disorders: Yes - PSYCHIATRIC Hx Bipolar Disorder: Yes Hx Depression: Yes - SURGICAL HISTORY Hx Orthopedic Surgery: Yes (Right femoral nailing) - ANESTHESIA Hx Anesthesia: Yes Hx Anesthesia Reactions: No Meds Allergies/Adverse Reactions: Allergies Allergy/AdvReac Type Severity Reaction Status Date / Time levofloxacin [From Levaquin] Allergy SWELLING Verified 12/20/16 18:43 FISH AdvReac SWELLING Verified 12/20/16 18:43 Physical Exam - Constitutional Appears: Unkempt, Chronically Ill Additional comments: lethargic - ENT Exam ENT Exam: Mucous Membranes Moist - Respiratory Exam Respiratory Exam: Decreased Breath Sounds, Rhonchi - Cardiovascular Exam Cardiovascular Exam: REGULAR RHYTHM - GI/Abdominal Exam GI & Abdominal Exam: Normal Bowel Sounds - Skin Additional comments: sacral decubiti Results - Vital Signs Recent Vital Signs: Last Vital Signs Temp 97.9 F 02/20/17 08:00 Pulse 69 02/20/17 08:00 Resp 20 02/20/17 08:00 BP 108/51 L 02/20/17 08:00 Pulse Ox 99 02/20/17 08:00 - Labs Result Diagrams: 02/20/17 07:35 02/20/17 14:45 Labs: Laboratory Results - last 24 hr 02/19/17 02/19/17 02/19/17 12:13 12:30 12:30 WBC RBC Hgb Hct MCV MCH MCHC RDW Plt Count MPV Neut % (Auto) Lymph % (Auto) Bradley % (Auto) Eos % (Auto) Baso % (Auto) Neut # Lymph # Bradley # Eos # Baso # PT INR APTT Sodium Potassium Chloride Carbon Dioxide Anion Gap BUN Creatinine Est GFR ( Amer) Est GFR (Non-Af Amer) POC Glucose (mg/dL) 110 Random Glucose Hemoglobin A1c Lactic Acid Calcium Phosphorus 3.9 Magnesium 1.8 Total Bilirubin AST ALT Alkaline Phosphatase Ammonia Total Creatine Kinase Troponin I NT-Pro-B Natriuret Pep Total Protein Albumin Globulin Albumin/Globulin Ratio Triglycerides Cholesterol LDL Cholesterol Direct HDL Cholesterol Vitamin B12 Procalcitonin 0.77 H TSH 3rd Generation 02/19/17 02/19/17 02/19/17 12:30 13:33 14:00 WBC RBC Hgb Hct MCV MCH MCHC RDW Plt Count MPV Neut % (Auto) Lymph % (Auto) Bradley % (Auto) Eos % (Auto) Baso % (Auto) Neut # Lymph # Bradley # Eos # Baso # PT INR APTT Sodium Potassium Chloride Carbon Dioxide Anion Gap BUN Creatinine Est GFR ( Amer) Est GFR (Non-Af Amer) POC Glucose (mg/dL) 120 H Random Glucose Hemoglobin A1c Lactic Acid 1.1 Calcium Phosphorus Magnesium Total Bilirubin AST ALT Alkaline Phosphatase Ammonia 11 L Total Creatine Kinase Troponin I NT-Pro-B Natriuret Pep Total Protein Albumin Globulin Albumin/Globulin Ratio Triglycerides Cholesterol LDL Cholesterol Direct HDL Cholesterol Vitamin B12 Procalcitonin TSH 3rd Generation 02/19/17 02/19/17 02/19/17 14:08 14:08 14:08 WBC 12.3 H RBC 3.41 L Hgb 9.9 L Hct 30.5 L MCV 89.5 MCH 29.1 MCHC 32.6 L RDW 17.1 H Plt Count 247 MPV 8.4 Neut % (Auto) 84.7 H Lymph % (Auto) 7.1 L Bradley % (Auto) 6.7 Eos % (Auto) 1.0 Baso % (Auto) 0.5 Neut # 10.4 H Lymph # 0.9 L Bradley # 0.8 Eos # 0.1 Baso # 0.1 PT 15.1 H INR 1.3 H APTT 30.8 Sodium 139 Potassium 3.5 L Chloride 110 H Carbon Dioxide 21 L Anion Gap 12 BUN 25 H Creatinine 0.9 Est GFR ( Amer) > 60 Est GFR (Non-Af Amer) > 60 POC Glucose (mg/dL) Random Glucose 93 Hemoglobin A1c Lactic Acid Calcium 8.2 L Phosphorus Magnesium Total Bilirubin 0.4 AST 26 ALT 29 Alkaline Phosphatase 105 Ammonia Total Creatine Kinase Troponin I 0.0450 NT-Pro-B Natriuret Pep 1090 H Total Protein 6.7 Albumin 2.5 L Globulin 4.1 H Albumin/Globulin Ratio 0.6 L Triglycerides 96 Cholesterol 117 LDL Cholesterol Direct 58 HDL Cholesterol 26 L Vitamin B12 Procalcitonin TSH 3rd Generation 02/19/17 02/19/17 02/19/17 14:08 16:03 17:10 WBC RBC Hgb Hct MCV MCH MCHC RDW Plt Count MPV Neut % (Auto) Lymph % (Auto) Bradley % (Auto) Eos % (Auto) Baso % (Auto) Neut # Lymph # Bradley # Eos # Baso # PT INR APTT Sodium Potassium Chloride Carbon Dioxide Anion Gap BUN Creatinine Est GFR ( Amer) Est GFR (Non-Af Amer) POC Glucose (mg/dL) 112 H Random Glucose Hemoglobin A1c 5.8 Lactic Acid Calcium Phosphorus Magnesium Total Bilirubin AST ALT Alkaline Phosphatase Ammonia Total Creatine Kinase 57 Troponin I NT-Pro-B Natriuret Pep Total Protein Albumin Globulin Albumin/Globulin Ratio Triglycerides Cholesterol LDL Cholesterol Direct HDL Cholesterol Vitamin B12 714 Procalcitonin TSH 3rd Generation 3.32 02/19/17 02/20/17 02/20/17 21:27 05:45 06:45 WBC RBC Hgb Hct MCV MCH MCHC RDW Plt Count MPV Neut % (Auto) Lymph % (Auto) Bradley % (Auto) Eos % (Auto) Baso % (Auto) Neut # Lymph # Bradley # Eos # Baso # PT INR APTT Sodium 140 Potassium 3.3 L Chloride 115 H Carbon Dioxide 18 L Anion Gap 10 BUN 27 H Creatinine 0.9 Est GFR ( Amer) > 60 Est GFR (Non-Af Amer) > 60 POC Glucose (mg/dL) 130 H 94 Random Glucose 84 Hemoglobin A1c Lactic Acid Calcium 7.6 L Phosphorus 4.0 Magnesium 1.8 Total Bilirubin 0.3 AST 17 D ALT 25 Alkaline Phosphatase 85 Ammonia Total Creatine Kinase Troponin I NT-Pro-B Natriuret Pep Total Protein 5.9 L Albumin 2.3 L Globulin 3.6 Albumin/Globulin Ratio 0.6 L Triglycerides Cholesterol LDL Cholesterol Direct HDL Cholesterol Vitamin B12 Procalcitonin TSH 3rd Generation 02/20/17 02/20/17 07:35 07:35 WBC 10.1 RBC 3.22 L Hgb 9.4 L Hct 28.9 L MCV 89.9 MCH 29.3 MCHC 32.6 L RDW 17.1 H Plt Count 235 MPV Neut % (Auto) Lymph % (Auto) Bradley % (Auto) Eos % (Auto) Baso % (Auto) Neut # Lymph # Bradley # Eos # Baso # PT INR APTT Sodium 140 Potassium 3.7 Chloride 115 H Carbon Dioxide 17 L Anion Gap 12 BUN 27 H Creatinine 1.0 Est GFR ( Amer) > 60 Est GFR (Non-Af Amer) > 60 POC Glucose (mg/dL) Random Glucose 83 Hemoglobin A1c Lactic Acid Calcium 7.8 L Phosphorus 4.1 Magnesium 1.8 Total Bilirubin 0.3 AST 18 ALT 25 Alkaline Phosphatase 88 Ammonia Total Creatine Kinase Troponin I NT-Pro-B Natriuret Pep Total Protein 6.1 L Albumin 2.3 L Globulin 3.8 Albumin/Globulin Ratio 0.6 L Triglycerides Cholesterol LDL Cholesterol Direct HDL Cholesterol Vitamin B12 Procalcitonin TSH 3rd Generation Assessment & Plan (1) Decubitus ulcer Status: Acute (2) Sepsis Status: Acute (3) History of pulmonary embolism Status: Acute (4) Diabetes mellitus Status: Chronic (5) Morbid exogenous obesity Status: Acute - Assessment and Plan (Free Text) Plan: Cont meds Cont tx Cont wound care iv antibiotics ID consults hydrate neurology eval
--- NOTE | 2017-02-20 13:20 | CP.PCM.CON ---
History of Present Illness - History of Present Illness History of Present Illness: 61M presents to [facility] with altered mental status and Sacral/gluteal decubitus. Patient is paraplegic and live in a group home He is current awake but does not respond to commands. referred for ID eval and antibiotic management - hx OM sacrum/ hip, fungemia, infected wounds PMH/PSH: DM, PE, paraplegic, osteomyelitis, bipolar PSH: Colostomy, IVC Filter Social: denies tobacco, alcohol, illicit drug use as per chart Allergies: Levofloxacin and fish as per chart Review of Systems - Review of Systems Systems not reviewed;Unavailable: Altered Mental Status All systems: reviewed and no additional remarkable complaints except - Constitutional Constitutional: As Per HPI - EENT Eyes: absent: As Per HPI, Blind Spots, Blurred Vision, Change in Vision, Decreased Night Vision, Diplopia, Discharge, Dry Eye, Exophthalmos, Floaters, Irritation, Itchy Eyes, Loss of Peripheral Vision, Pain, Photophobia, Requires Corrective Lenses, Sees Flashes, Spots in Vision, Tunnel Vision, Other Visual Disturbances, Loss of Vision, Other Ears: absent: As Per HPI, Decreased Hearing, Ear Discharge, Ear Pain, Tinnitus, Abnormal Hearing, Disequilibrium, Dizziness, Other Nose/Mouth/Throat: absent: As Per HPI, Epistaxis, Nasal Congestion, Nasal Discharge, Nasal Obstruction, Nasal Trauma, Nose Pain, Post Nasal Drip, Sinus Pain, Sinus Pressure, Bleeding Gums, Change in Voice, Dental Pain, Dry Mouth, Dysphagia, Halitosis, Hoarsness, Lip Swelling, Mouth Lesions, Mouth Pain, Odynophagia, Sore Throat, Throat Swelling, Tongue Swelling, Facial Pain, Neck Pain, Neck Mass, Other - Cardiovascular Cardiovascular: absent: As Per HPI, Acrocyanosis, Chest Pain, Chest Pain at Rest , Chest Pain with Activity, Claudication, Diaphoresis, Dyspnea, Dyspnea on Exertion, Edema, Irregular Heart Rhythm, Pain Radiating to Arm/Neck/Jaw, Leg Edema, Leg Ulcers, Lightheadedness, Orthopnea, Palpitations, Paroxysmal Nocturnal Dyspnea, Pedal Edema, Radiating Pain, Rapid Heart Rate, Slow Heart Rate, Syncope, Other - Respiratory Respiratory: absent: As Per HPI, Cough, Dyspnea, Hemoptysis, Dyspnea on Exertion , Wheezing, Snoring, Stridor, Pain on Inspiration, Chest Congestion, Excessive Mucous Production, Change in Mucous Color, Pain with Coughing, Other - Gastrointestinal Gastrointestinal: absent: As Per HPI, Abdominal Pain, Belching, Bloating, Change in Bowel Habits, Change in Stool Character, Coffee Ground Emesis, Constipation, Cramping, Diarrhea, Dyspepsia, Dysphagia, Early Satiety, Excessive Flatus, Fecal Incontinence, Heartburn, Hematemesis, Hematochezia, Loose Stools, Melena, Nausea, Odynophagia, Temesmus, Vomiting, Other - Genitourinary Genitourinary: absent: As Per HPI, Change in Urinary Stream, Difficulty Urinating, Dysuria, Flank Pain, Hematuria, Pyuria, Nocturia, Urinary Incontinence, Urinary Frequency, Urinary Hesitance, Urinary Urgency, Voiding Freq/Small Amts, Freq UTI, Hx Renal/Bladder Calculi, Hx /Renal Surgery, Bladder Distension, Other - Musculoskeletal Musculoskeletal: As Per HPI, Muscle Weakness - Integumentary Integumentary: As Per HPI - Neurological Neurological: As Per HPI - Psychiatric Psychiatric: As Per HPI - Endocrine Endocrine: absent: As Per HPI, Change in Body Appearance, Change in Libido, Cold Intolorance, Deepening of Voice, Excessive Sweating, Fatigue, Flushing, Heat Intolorance, Increase in Ring/Shoe/Hat Size, Palpitations, Polydipsia, Polyphagia, Polyuria, Other - Hematologic/Lymphatic Hematologic: absent: As Per HPI, Easy Bleeding, Easy Bruising, Lymphadenopathy, Other Past Patient History - Infectious Disease Hx of Infectious Diseases: C.diff, MRSA - Past Medical History & Family History Past Medical History?: Yes - Past Social History Smoking Status: Never Smoked - CARDIAC Hx Cardiac Disorders: Yes Hx Hypercholesterolemia: Yes Hx Hypertension: Yes - PULMONARY Hx Pulmonary Embolism: Yes - RENAL Hx Renal Failure: Yes - ENDOCRINE/METABOLIC Hx Diabetes Mellitus Type 2: Yes - HEMATOLOGICAL/ONCOLOGICAL Hx Human Immunodeficiency Virus (HIV): No - MUSCULOSKELETAL/RHEUMATOLOGICAL Hx Arthritis: Yes - GASTROINTESTINAL Hx Crohn's Disease: No Hx Diverticulitis: No Hx Gall Bladder Disease: No Hx Gastritis: Yes Hx Pancreatitis: No - GENITOURINARY/GYNECOLOGICAL Hx Genitourinary Disorders: Yes - PSYCHIATRIC Hx Bipolar Disorder: Yes Hx Depression: Yes - SURGICAL HISTORY Hx Orthopedic Surgery: Yes (Right femoral nailing) - ANESTHESIA Hx Anesthesia: Yes Hx Anesthesia Reactions: No Meds Allergies/Adverse Reactions: Allergies Allergy/AdvReac Type Severity Reaction Status Date / Time levofloxacin [From Levaquin] Allergy SWELLING Verified 12/20/16 18:43 FISH AdvReac SWELLING Verified 12/20/16 18:43 - Medications Medications: Current Medications Apixaban (Eliquis) 2.5 mg PO BID@0900,2100 [facility] PRN Reason: Protocol Last Admin: 02/20/17 08:21 Dose: Not Given Baclofen (Lioresal) 10 mg PO DAILY [facility] Last Admin: 02/20/17 08:22 Dose: Not Given Collagenase (Santyl) 1 applic TOP DAILY [facility] Last Admin: 02/20/17 08:16 Dose: 1 applic Cyanocobalamin (Vitamin B12 1000 Mcg Tab) 1,000 mcg PO DAILY [facility] Last Admin: 02/20/17 08:23 Dose: Not Given Dextrose (Dextrose 50% Inj) 0 ml IV STAT PRN; Protocol PRN Reason: Hyglycemia Protocol Dextrose (Glutose 15) 0 gm PO ONCE PRN; Protocol PRN Reason: Hypoglycemia Protocol Escitalopram Oxalate (Lexapro) 5 mg PO DAILY [facility] Last Admin: 02/20/17 08:22 Dose: Not Given Folic Acid (Folic Acid) 1 mg PO DAILY [facility] Last Admin: 02/20/17 08:22 Dose: Not Given Glucagon (Glucagen Diagnostic Kit) 0 mg IM STAT PRN; Protocol PRN Reason: Hypoglycemia Protocol Vancomycin HCl 750 mg/ Sodium (Chloride) 250 mls @ 166.667 mls/hr IVPB Q12 [facility] Last Admin: 02/20/17 08:16 Dose: 166.667 mls/hr Cefepime HCl 2 gm/ Sodium (Chloride) 100 mls @ 100 mls/hr IVPB Q12 [facility] Last Admin: 02/20/17 08:16 Dose: 100 mls/hr Sodium Chloride (Sodium Chloride 0.9%) 1,000 mls @ 150 mls/hr IV .Q6H40M [facility] Stop: 02/20/17 16:14 Last Admin: 02/20/17 12:29 Dose: Not Given Sodium Chloride (Sodium Chloride 0.9%) 1,000 mls @ 250 mls/hr IV .Q4H [facility] Stop: 02/21/17 11:09 Last Admin: 02/20/17 12:15 Dose: 250 mls/hr Insulin Detemir (Levemir) 10 units SC [facility] Last Admin: 02/19/17 23:23 Dose: Not Given Insulin Human Regular (Humulin R) 0 units SC [facility] PRN Reason: Protocol Last Admin: 02/20/17 12:13 Dose: Not Given Magnesium Oxide (Mag-Ox) 400 mg PO BID [facility] Last Admin: 02/20/17 08:22 Dose: Not Given Metoprolol Tartrate (Lopressor) 12.5 mg PO Q12H [facility] Last Admin: 02/20/17 12:06 Dose: Not Given Olanzapine (Zyprexa) 10 mg PO DAILY [facility] Last Admin: 02/20/17 08:23 Dose: Not Given Pantoprazole Sodium (Protonix Ec Tab) 40 mg PO DAILY [facility] Last Admin: 02/20/17 08:23 Dose: Not Given Potassium Chloride (K-Dur 20 Meq Er Tab) 20 meq PO DAILY [facility] Last Admin: 02/20/17 08:22 Dose: Not Given Tamsulosin HCl (Flomax) 0.4 mg PO DAILY [facility] Last Admin: 02/20/17 08:22 Dose: Not Given Zinc Sulfate (Zinc Sulfate 220 Mg Cap) 220 mg PO DAILY [facility] Last Admin: 02/20/17 08:23 Dose: Not Given Physical Exam - Constitutional Appears: Confused, Chronically Ill - Head Exam Head Exam: NORMOCEPHALIC - Eye Exam Eye Exam: PERRL. absent: Scleral icterus - ENT Exam ENT Exam: Mucous Membranes Dry, Normal Oropharynx - Neck Exam Neck exam: Negative for: Lymphadenopathy - Respiratory Exam Respiratory Exam: Decreased Breath Sounds, Rhonchi - Cardiovascular Exam Cardiovascular Exam: REGULAR RHYTHM, +S1, +S2 - GI/Abdominal Exam GI & Abdominal Exam: Diminished Bowel Sounds, Soft. absent: Tenderness - Rectal Exam Rectal Exam: Deferred - Exam Exam: NORMAL INSPECTION - Extremities Exam Extremities exam: Positive for: pedal pulses present. Negative for: calf tenderness, pedal edema, tenderness - Back Exam Back exam: absent: CVA tenderness (L), CVA tenderness (R) - Neurological Exam Neurological exam: Alert, Altered, CN II-XII Intact - Skin Skin Exam: Dry Results - Vital Signs Recent Vital Signs: Last Vital Signs Temp 98.6 F 02/20/17 13:00 Pulse 64 02/20/17 13:00 Resp 20 02/20/17 13:00 BP 90/49 L 06/16/17 13:00 Pulse Ox 99 02/20/17 13:00 - Labs Result Diagrams: 02/20/17 07:35 02/20/17 07:35 Labs: Laboratory Results - last 24 hr 02/19/17 02/19/17 02/19/17 12:30 13:33 14:00 WBC RBC Hgb Hct MCV MCH MCHC RDW Plt Count MPV Neut % (Auto) Lymph % (Auto) Green % (Auto) Eos % (Auto) Baso % (Auto) Neut # Lymph # Green # Eos # Baso # PT INR APTT Sodium Potassium Chloride Carbon Dioxide Anion Gap BUN Creatinine Est GFR ( Amer) Est GFR (Non-Af Amer) POC Glucose (mg/dL) 120 H Random Glucose Hemoglobin A1c Calcium Phosphorus Magnesium Total Bilirubin AST ALT Alkaline Phosphatase Ammonia 11 L Total Creatine Kinase Troponin I NT-Pro-B Natriuret Pep Total Protein Albumin Globulin Albumin/Globulin Ratio Triglycerides Cholesterol LDL Cholesterol Direct HDL Cholesterol Vitamin B12 Procalcitonin 0.77 H TSH 3rd Generation 02/19/17 02/19/17 02/19/17 14:08 14:08 14:08 WBC 12.3 H RBC 3.41 L Hgb 9.9 L Hct 30.5 L MCV 89.5 MCH 29.1 MCHC 32.6 L RDW 17.1 H Plt Count 247 MPV 8.4 Neut % (Auto) 84.7 H Lymph % (Auto) 7.1 L Green % (Auto) 6.7 Eos % (Auto) 1.0 Baso % (Auto) 0.5 Neut # 10.4 H Lymph # 0.9 L Green # 0.8 Eos # 0.1 Baso # 0.1 PT 15.1 H INR 1.3 H APTT 30.8 Sodium 139 Potassium 3.5 L Chloride 110 H Carbon Dioxide 21 L Anion Gap 12 BUN 25 H Creatinine 0.9 Est GFR ( Amer) > 60 Est GFR (Non-Af Amer) > 60 POC Glucose (mg/dL) Random Glucose 93 Hemoglobin A1c Calcium 8.2 L Phosphorus Magnesium Total Bilirubin 0.4 AST 26 ALT 29 Alkaline Phosphatase 105 Ammonia Total Creatine Kinase Troponin I 0.0450 NT-Pro-B Natriuret Pep 1090 H Total Protein 6.7 Albumin 2.5 L Globulin 4.1 H Albumin/Globulin Ratio 0.6 L Triglycerides 96 Cholesterol 117 LDL Cholesterol Direct 58 HDL Cholesterol 26 L Vitamin B12 Procalcitonin TSH 3rd Generation 02/19/17 02/19/17 02/19/17 14:08 16:03 17:10 WBC RBC Hgb Hct MCV MCH MCHC RDW Plt Count MPV Neut % (Auto) Lymph % (Auto) Green % (Auto) Eos % (Auto) Baso % (Auto) Neut # Lymph # Green # Eos # Baso # PT INR APTT Sodium Potassium Chloride Carbon Dioxide Anion Gap BUN Creatinine Est GFR ( Amer) Est GFR (Non-Af Amer) POC Glucose (mg/dL) 112 H Random Glucose Hemoglobin A1c 5.8 Calcium Phosphorus Magnesium Total Bilirubin AST ALT Alkaline Phosphatase Ammonia Total Creatine Kinase 57 Troponin I NT-Pro-B Natriuret Pep Total Protein Albumin Globulin Albumin/Globulin Ratio Triglycerides Cholesterol LDL Cholesterol Direct HDL Cholesterol Vitamin B12 714 Procalcitonin TSH 3rd Generation 3.32 02/19/17 02/20/17 02/20/17 21:27 05:45 06:45 WBC RBC Hgb Hct MCV MCH MCHC RDW Plt Count MPV Neut % (Auto) Lymph % (Auto) Green % (Auto) Eos % (Auto) Baso % (Auto) Neut # Lymph # Green # Eos # Baso # PT INR APTT Sodium 140 Potassium 3.3 L Chloride 115 H Carbon Dioxide 18 L Anion Gap 10 BUN 27 H Creatinine 0.9 Est GFR ( Amer) > 60 Est GFR (Non-Af Amer) > 60 POC Glucose (mg/dL) 130 H 94 Random Glucose 84 Hemoglobin A1c Calcium 7.6 L Phosphorus 4.0 Magnesium 1.8 Total Bilirubin 0.3 AST 17 D ALT 25 Alkaline Phosphatase 85 Ammonia Total Creatine Kinase Troponin I NT-Pro-B Natriuret Pep Total Protein 5.9 L Albumin 2.3 L Globulin 3.6 Albumin/Globulin Ratio 0.6 L Triglycerides Cholesterol LDL Cholesterol Direct HDL Cholesterol Vitamin B12 Procalcitonin TSH 3rd Generation 02/20/17 02/20/17 02/20/17 07:35 07:35 11:52 WBC 10.1 RBC 3.22 L Hgb 9.4 L Hct 28.9 L MCV 89.9 MCH 29.3 MCHC 32.6 L RDW 17.1 H Plt Count 235 MPV Neut % (Auto) Lymph % (Auto) Green % (Auto) Eos % (Auto) Baso % (Auto) Neut # Lymph # Green # Eos # Baso # PT INR APTT Sodium 140 Potassium 3.7 Chloride 115 H Carbon Dioxide 17 L Anion Gap 12 BUN 27 H Creatinine 1.0 Est GFR ( Amer) > 60 Est GFR (Non-Af Amer) > 60 POC Glucose (mg/dL) 92 Random Glucose 83 Hemoglobin A1c Calcium 7.8 L Phosphorus 4.1 Magnesium 1.8 Total Bilirubin 0.3 AST 18 ALT 25 Alkaline Phosphatase 88 Ammonia Total Creatine Kinase Troponin I NT-Pro-B Natriuret Pep Total Protein 6.1 L Albumin 2.3 L Globulin 3.8 Albumin/Globulin Ratio 0.6 L Triglycerides Cholesterol LDL Cholesterol Direct HDL Cholesterol Vitamin B12 Procalcitonin TSH 3rd Generation Assessment & Plan (1) Decubitus ulcer Status: Acute (2) Sepsis Status: Acute - Assessment and Plan (Free Text) Assessment: multiple possible souces may need debridement of wounds await cultures ciont iv antibiotics
[2017-02-20 15:04] LABS: BLOOD UREA NITROGEN 26 mg/dl (9-20); CALCIUM 7.5 mg/dL (8.4-10.2); CARBON DIOXIDE 15 mmol/L (22-30); CHLORIDE 118 mmol/L (98-107); GFR AFRICAN-AMERICAN > 60; GLUCOSE,RANDOM 81 mg/dL (75-110); POTASSIUM 3.3 MMOL/L (3.6-5.0); SODIUM 142 mmol/l (132-148)
--- NOTE | 2017-02-20 16:08 | CP.PCM.CON ---
History of Present Illness - History of Present Illness History of Present Illness: 61 y/o male with altered mental status with pmhx of DM, PE, paraplegic, osteomyelitis, bipolar, seen at bedside after podiatry consultation for bilateral lower extremity wounds and heel eschars. patient is awake but does not respond to commands. He was brought here from [facility]. PSH: Colostomy, IVC Filter Social: denies tobacco, alcohol, illicit drug use as per chart Allergies: Levofloxacin and fish as per chart Review of Systems - Constitutional Constitutional: As Per HPI Past Patient History - Infectious Disease Hx of Infectious Diseases: C.diff, MRSA - Past Medical History & Family History Past Medical History?: Yes - Past Social History Smoking Status: Never Smoked - CARDIAC Hx Cardiac Disorders: Yes Hx Hypercholesterolemia: Yes Hx Hypertension: Yes - PULMONARY Hx Pulmonary Embolism: Yes - RENAL Hx Renal Failure: Yes - ENDOCRINE/METABOLIC Hx Diabetes Mellitus Type 2: Yes - HEMATOLOGICAL/ONCOLOGICAL Hx Human Immunodeficiency Virus (HIV): No - MUSCULOSKELETAL/RHEUMATOLOGICAL Hx Arthritis: Yes - GASTROINTESTINAL Hx Crohn's Disease: No Hx Diverticulitis: No Hx Gall Bladder Disease: No Hx Gastritis: Yes Hx Pancreatitis: No - GENITOURINARY/GYNECOLOGICAL Hx Genitourinary Disorders: Yes - PSYCHIATRIC Hx Bipolar Disorder: Yes Hx Depression: Yes - SURGICAL HISTORY Hx Orthopedic Surgery: Yes (Right femoral nailing) - ANESTHESIA Hx Anesthesia: Yes Hx Anesthesia Reactions: No Meds Allergies/Adverse Reactions: Allergies Allergy/AdvReac Type Severity Reaction Status Date / Time levofloxacin [From Levaquin] Allergy SWELLING Verified 12/20/16 18:43 FISH AdvReac SWELLING Verified 12/20/16 18:43 - Medications Medications: Current Medications Apixaban (Eliquis) 2.5 mg PO BID@0900,2100 [facility] PRN Reason: Protocol Last Admin: 02/20/17 08:21 Dose: Not Given Baclofen (Lioresal) 10 mg PO DAILY [facility] Last Admin: 02/20/17 08:22 Dose: Not Given Collagenase (Santyl) 1 applic TOP DAILY [facility] Last Admin: 02/20/17 08:16 Dose: 1 applic Cyanocobalamin (Vitamin B12 1000 Mcg Tab) 1,000 mcg PO DAILY [facility] Last Admin: 02/20/17 08:23 Dose: Not Given Dextrose (Dextrose 50% Inj) 0 ml IV STAT PRN; Protocol PRN Reason: Hyglycemia Protocol Dextrose (Glutose 15) 0 gm PO ONCE PRN; Protocol PRN Reason: Hypoglycemia Protocol Escitalopram Oxalate (Lexapro) 5 mg PO DAILY [facility] Last Admin: 02/20/17 08:22 Dose: Not Given Folic Acid (Folic Acid) 1 mg PO DAILY [facility] Last Admin: 02/20/17 08:22 Dose: Not Given Glucagon (Glucagen Diagnostic Kit) 0 mg IM STAT PRN; Protocol PRN Reason: Hypoglycemia Protocol Vancomycin HCl 750 mg/ Sodium (Chloride) 250 mls @ 166.667 mls/hr IVPB Q12 [facility] Last Admin: 02/20/17 08:16 Dose: 166.667 mls/hr Cefepime HCl 2 gm/ Sodium (Chloride) 100 mls @ 100 mls/hr IVPB Q12 [facility] Last Admin: 02/20/17 08:16 Dose: 100 mls/hr Sodium Chloride (Sodium Chloride 0.9%) 1,000 mls @ 150 mls/hr IV .Q6H40M [facility] Stop: 02/20/17 16:14 Last Admin: 02/20/17 12:29 Dose: Not Given Sodium Chloride (Sodium Chloride 0.9%) 1,000 mls @ 150 mls/hr IV .Q6H40M [facility] Stop: 02/21/17 15:06 Potassium Chloride (Potassium Cl 10meq/50ml Sterile Water) 50 mls @ 50 mls/hr IVPB Q1 [facility] Stop: 02/20/17 17:59 Insulin Detemir (Levemir) 10 units SC HS [facility] Last Admin: 02/19/17 23:23 Dose: Not Given Insulin Human Regular (Humulin R) 0 units SC [facility] PRN Reason: Protocol Last Admin: 02/20/17 12:13 Dose: Not Given Magnesium Oxide (Mag-Ox) 400 mg PO BID [facility] Last Admin: 02/20/17 08:22 Dose: Not Given Metoprolol Tartrate (Lopressor) 12.5 mg PO Q12H [facility] Last Admin: 02/20/17 12:06 Dose: Not Given Olanzapine (Zyprexa) 10 mg PO DAILY [facility] Last Admin: 02/20/17 08:23 Dose: Not Given Pantoprazole Sodium (Protonix Ec Tab) 40 mg PO DAILY [facility] Last Admin: 02/20/17 08:23 Dose: Not Given Potassium Chloride (K-Dur 20 Meq Er Tab) 20 meq PO DAILY [facility] Last Admin: 02/20/17 08:22 Dose: Not Given Tamsulosin HCl (Flomax) 0.4 mg PO DAILY [facility] Last Admin: 02/20/17 08:22 Dose: Not Given Zinc Sulfate (Zinc Sulfate 220 Mg Cap) 220 mg PO DAILY [facility] Last Admin: 02/20/17 08:23 Dose: Not Given Physical Exam - Constitutional Appears: Well, Non-toxic, No Acute Distress - Extremities Exam Additional comments: Vasc: DP/PT 2/4 b/l, TG wnl, CFT < 3 sec to all digits neuro: unable to assess derm: superficial ulcerations diffuse on anterior shins b/l, posterior leg on right, dorsum of foot b/l, necrotic eschar noted to right heel,.preulcerative lesion noted to left heel, mild drainage, no purulence, no malodor, no active bleeding, no ascending cellulitis, no probe to bone ortho: unable to assess - Neurological Exam Neurological exam: Alert, Oriented x3 - Psychiatric Exam Psychiatric exam: Normal Affect, Normal Mood Results - Vital Signs Recent Vital Signs: Last Vital Signs Temp 97.9 F 02/20/17 15:42 Pulse 65 02/20/17 15:42 Resp 22 02/20/17 15:42 BP 109/55 L 02/20/17 15:42 Pulse Ox 100 02/20/17 15:42 - Labs Result Diagrams: 02/20/17 07:35 02/20/17 14:45 Labs: Laboratory Results - last 24 hr 02/19/17 02/19/17 02/19/17 12:30 14:08 16:03 WBC RBC Hgb Hct MCV MCH MCHC RDW Plt Count Sodium Potassium Chloride Carbon Dioxide Anion Gap BUN Creatinine Est GFR ( Amer) Est GFR (Non-Af Amer) POC Glucose (mg/dL) 112 H Random Glucose Hemoglobin A1c 5.8 Lactic Acid Calcium Phosphorus Magnesium Total Bilirubin AST ALT Alkaline Phosphatase Ammonia Total Creatine Kinase Total Protein Albumin Globulin Albumin/Globulin Ratio Vitamin B12 Procalcitonin 0.77 H TSH 3rd Generation 02/19/17 02/19/17 02/20/17 17:10 21:27 05:45 WBC RBC Hgb Hct MCV MCH MCHC RDW Plt Count Sodium 140 Potassium 3.3 L Chloride 115 H Carbon Dioxide 18 L Anion Gap 10 BUN 27 H Creatinine 0.9 Est GFR ( Amer) > 60 Est GFR (Non-Af Amer) > 60 POC Glucose (mg/dL) 130 H Random Glucose 84 Hemoglobin A1c Lactic Acid Calcium 7.6 L Phosphorus 4.0 Magnesium 1.8 Total Bilirubin 0.3 AST 17 D ALT 25 Alkaline Phosphatase 85 Ammonia Total Creatine Kinase 57 Total Protein 5.9 L Albumin 2.3 L Globulin 3.6 Albumin/Globulin Ratio 0.6 L Vitamin B12 714 Procalcitonin TSH 3rd Generation 3.32 02/20/17 02/20/17 02/20/17 06:45 07:35 07:35 WBC 10.1 RBC 3.22 L Hgb 9.4 L Hct 28.9 L MCV 89.9 MCH 29.3 MCHC 32.6 L RDW 17.1 H Plt Count 235 Sodium 140 Potassium 3.7 Chloride 115 H Carbon Dioxide 17 L Anion Gap 12 BUN 27 H Creatinine 1.0 Est GFR ( Amer) > 60 Est GFR (Non-Af Amer) > 60 POC Glucose (mg/dL) 94 Random Glucose 83 Hemoglobin A1c Lactic Acid Calcium 7.8 L Phosphorus 4.1 Magnesium 1.8 Total Bilirubin 0.3 AST 18 ALT 25 Alkaline Phosphatase 88 Ammonia Total Creatine Kinase Total Protein 6.1 L Albumin 2.3 L Globulin 3.8 Albumin/Globulin Ratio 0.6 L Vitamin B12 Procalcitonin TSH 3rd Generation 02/20/17 02/20/17 02/20/17 11:52 14:45 14:45 WBC RBC Hgb Hct MCV MCH MCHC RDW Plt Count Sodium 142 Potassium 3.3 L Chloride 118 H Carbon Dioxide 15 L Anion Gap 12 BUN 26 H Creatinine 1.0 Est GFR ( Amer) > 60 Est GFR (Non-Af Amer) > 60 POC Glucose (mg/dL) 92 Random Glucose 81 Hemoglobin A1c Lactic Acid Calcium 7.5 L Phosphorus Magnesium Total Bilirubin AST ALT Alkaline Phosphatase Ammonia < 9 L Total Creatine Kinase Total Protein Albumin Globulin Albumin/Globulin Ratio Vitamin B12 Procalcitonin TSH 3rd Generation 02/20/17 02/20/17 15:00 15:59 WBC RBC Hgb Hct MCV MCH MCHC RDW Plt Count Sodium Potassium Chloride Carbon Dioxide Anion Gap BUN Creatinine Est GFR ( Amer) Est GFR (Non-Af Amer) POC Glucose (mg/dL) 103 Random Glucose Hemoglobin A1c Lactic Acid 0.6 L Calcium Phosphorus Magnesium Total Bilirubin AST ALT Alkaline Phosphatase Ammonia Total Creatine Kinase Total Protein Albumin Globulin Albumin/Globulin Ratio Vitamin B12 Procalcitonin TSH 3rd Generation Assessment & Plan - Assessment and Plan (Free Text) Assessment: 61 y/o male seen at bedside for bilateral lower extremity wounds, secondary to unknown etiology Plan: patient evaluated and chart reviewed discussed in detail with attending Dr. Valle labs and vitals reviewed continue IV abx as per ID applied xeroform, DSD, kkerlix to lower extremities b/l applied multipodus boots for offloading heels patient will continue to be followed while in house
[2017-02-20] MEDS: Potassium CL 10 MEQ/50 ML 50 ML IVPB SCH ×2 (16:54→18:30)
--- NOTE | 2017-02-20 17:07 | CT ---
PROCEDURE: CT HEAD WITHOUT CONTRAST. HISTORY: altered mental status COMPARISON: Comparison is made to the previous study dated 02/19/2017 TECHNIQUE: Axial computed tomography images were obtained through the head/brain without intravenous contrast. Radiation dose: Total exam DLP = 1455.59 mGy-cm. This CT exam was performed using one or more of the following dose reduction techniques: Automated exposure control, adjustment of the mA and/or kV according to patient size, and/or use of iterative reconstruction technique. FINDINGS: HEMORRHAGE: No intracranial hemorrhage. BRAIN: No mass effect or edema. Again seen is [id number] atrophy. Mild chronic microvascular white matter ischemic disease is also again noted. VENTRICLES: Unremarkable. No hydrocephalus. CALVARIUM: Unremarkable. PARANASAL SINUSES: Unremarkable as visualized. No significant inflammatory changes. MASTOID AIR CELLS: Unremarkable as visualized. No inflammatory changes. OTHER FINDINGS: None. IMPRESSION: No evidence of acute intracranial hemorrhage territorial infarct mass effect or midline shift. [id number] atrophy and mild chronic microvascular ischemic disease are again seen. No significant interval change since the previous exam.
[2017-02-20 17:39] LABS: FOLATE > 20.0 ng/mL
--- NOTE | 2017-02-20 19:23 | CARD ---
APPROVED REPORT EKG Measurement Heart [id number] [place] 168P [id number] <Conclusion> Sinus bradycardia Otherwise normal ECG
--- NOTE | 2017-02-20 20:31 | CP.PCM.PN ---
Subjective - Date & Time of Evaluation Date of Evaluation: 02/20/17 Time of Evaluation: 10:00 - Subjective Subjective: Patient remains nonresponsive to verbal stimuli. Has no fever Noted slightly elevated WBC NOted gram neg urine C and S. CT scan rain showed no evidence of bleed. Objective - Vital Signs/Intake and Output Vital Signs (last 24 hours): Temp Pulse Resp BP Pulse Ox 98.3 F 65 18 110/65 100 02/20/17 20:00 02/20/17 20:00 02/20/17 20:00 02/20/17 20:00 02/20/17 20:00 Intake and Output: 02/20/17 02/21/17 18:59 06:59 Intake Total 2300 Output Total 360 Balance 1940 - Medications Medications: Current Medications Apixaban (Eliquis) 2.5 mg PO BID@0900,2100 [facility] PRN Reason: Protocol Last Admin: 02/20/17 08:21 Dose: Not Given Baclofen (Lioresal) 10 mg PO DAILY [facility] Last Admin: 02/20/17 08:22 Dose: Not Given Cyanocobalamin (Vitamin B12 1000 Mcg Tab) 1,000 mcg PO DAILY [facility] Last Admin: 02/20/17 08:23 Dose: Not Given Dextrose (Dextrose 50% Inj) 0 ml IV STAT PRN; Protocol PRN Reason: Hyglycemia Protocol Dextrose (Glutose 15) 0 gm PO ONCE PRN; Protocol PRN Reason: Hypoglycemia Protocol Escitalopram Oxalate (Lexapro) 5 mg PO DAILY [facility] Last Admin: 02/20/17 08:22 Dose: Not Given Folic Acid (Folic Acid) 1 mg PO DAILY [facility] Last Admin: 02/20/17 08:22 Dose: Not Given Glucagon (Glucagen Diagnostic Kit) 0 mg IM STAT PRN; Protocol PRN Reason: Hypoglycemia Protocol Vancomycin HCl 750 mg/ Sodium (Chloride) 250 mls @ 166.667 mls/hr IVPB Q12 [facility] Last Admin: 02/20/17 08:16 Dose: 166.667 mls/hr Cefepime HCl 2 gm/ Sodium (Chloride) 100 mls @ 100 mls/hr IVPB Q12 [facility] Last Admin: 02/20/17 08:16 Dose: 100 mls/hr Sodium Chloride (Sodium Chloride 0.9%) 1,000 mls @ 150 mls/hr IV .Q6H40M [facility] Stop: 02/21/17 15:06 Last Admin: 02/20/17 16:53 Dose: 150 mls/hr Insulin Detemir (Levemir) 10 units SC [facility] Last Admin: 02/19/17 23:23 Dose: Not Given Insulin Human Regular (Humulin R) 0 units SC [facility] PRN Reason: Protocol Last Admin: 02/20/17 16:54 Dose: Not Given Magnesium Oxide (Mag-Ox) 400 mg PO BID [facility] Last Admin: 02/20/17 16:50 Dose: Not Given Metoprolol Tartrate (Lopressor) 12.5 mg PO Q12H [facility] Last Admin: 02/20/17 12:06 Dose: Not Given Olanzapine (Zyprexa) 10 mg PO DAILY [facility] Last Admin: 02/20/17 08:23 Dose: Not Given Pantoprazole Sodium (Protonix Ec Tab) 40 mg PO DAILY [facility] Last Admin: 02/20/17 08:23 Dose: Not Given Potassium Chloride (K-Dur 20 Meq Er Tab) 20 meq PO DAILY [facility] Last Admin: 02/20/17 08:22 Dose: Not Given Tamsulosin HCl (Flomax) 0.4 mg PO DAILY [facility] Last Admin: 02/20/17 08:22 Dose: Not Given Zinc Sulfate (Zinc Sulfate 220 Mg Cap) 220 mg PO DAILY [facility] Last Admin: 02/20/17 08:23 Dose: Not Given - Labs Labs: 02/20/17 07:35 02/20/17 14:45 PT 15.1 Seconds (9.8-13.1) H 02/19/17 14:08 INR 1.3 (0.9-1.2) H 02/19/17 14:08 APTT 30.8 Seconds (25.6-37.1) 02/19/17 14:08 - Head Exam Head Exam: NORMAL INSPECTION - Eye Exam Pupil Exam: NORMAL ACCOMODATION - ENT Exam ENT Exam: Mucous Membranes Moist - Respiratory Exam Respiratory Exam: Clear to Ausculation Bilateral - Cardiovascular Exam Cardiovascular Exam: Irregular Rhythm - GI/Abdominal Exam GI & Abdominal Exam: Normal Bowel Sounds - Neurological Exam Neurological Exam: Altered Additional comments: not responding to verbal stimuli - Psychiatric Exam Psychiatric exam: Flat Affect Assessment and Plan (1) Decubitus ulcer Status: Acute (2) Sepsis Status: Acute (3) History of pulmonary embolism Status: Acute (4) Diabetes mellitus Status: Chronic (5) Morbid exogenous obesity Status: Acute (6) Altered mental status Status: Acute - Assessment and Plan (Free Text) Plan: cont meds cont tx cont hydration Iv antibiotics recheck labs in am.
[2017-02-20] MEDS: Insulin Detemir 100 Units/ml Inj SC SCH (22:30)
[2017-02-21] MEDS: Sodium Chloride 0.9% 1,000 ML IV SCH ×3 (03:16→12:19)
[2017-02-21 04:47] LABS: ALB/GLOB RATIO 0.6 (1.0-2.1); ALKALINE PHOSPHATASE 80 U/L (38-126); ALT/SGPT 26 U/L (21-72); AST/SGOT 20 U/L (17-59); BILIRUBIN,TOTAL 0.3 mg/dl (0.2-1.3); BLOOD UREA NITROGEN 26 mg/dl (9-20); CALCIUM 7.6 mg/dL (8.4-10.2); CARBON DIOXIDE 13 mmol/L (22-30); CHLORIDE 120 mmol/L (98-107); GFR AFRICAN-AMERICAN > 60; GLUCOSE,RANDOM 68 mg/dL (75-110); POTASSIUM 3.3 MMOL/L (3.6-5.0); SODIUM 145 mmol/l (132-148); TOTAL PROTEIN 5.6 G/DL (6.3-8.2)
[2017-02-21 04:52] LABS: BASO % 0.2 % (0.0-2.0); EOS # 0.1 K/uL (0.0-0.7); EOS % 0.6 % (0.0-4.0); LYMPH # 0.9 K/uL (1.0-4.3); LYMPH % 9.6 % (20.0-40.0); MEAN CELL VOLUME 91.4 fl (80.0-94.0); MEAN CORPUSCULAR HEMOGLOBIN 29.4 pg (27.0-31.0); MEAN CORPUSCULAR HGB CONC 32.2 g/dL (33.0-37.0); MEAN PLATELET VOLUME 8.5 fl (7.2-11.7); MONO # 0.6 K/uL (0.0-0.8); NEUT # 7.5 K/uL (1.8-7.0); NEUT % 82.6 % (50.0-75.0)
--- NOTE | 2017-02-21 07:18 | CP.PCM.PN ---
Subjective - Date & Time of Evaluation Date of Evaluation: 02/21/17 Time of Evaluation: 06:45 - Subjective Subjective: SURGERY PROGRESS NOTE 61M seen and examined at bedside. Patient currently being turned and cleaned. Wound vac is in place and on suction. Objective - Vital Signs/Intake and Output Vital Signs (last 24 hours): Temp Pulse Resp BP Pulse Ox 96.9 F L 81 18 151/62 H 95 02/21/17 05:00 02/21/17 05:00 02/21/17 05:00 02/21/17 05:00 02/21/17 05:00 Intake and Output: 02/21/17 02/21/17 06:59 18:59 Intake Total 2300 Output Total 360 Balance 1940 - Medications Medications: Current Medications Apixaban (Eliquis) 2.5 mg PO BID@0900,2100 [facility] PRN Reason: Protocol Last Admin: 02/20/17 21:00 Dose: Not Given Baclofen (Lioresal) 10 mg PO DAILY [facility] Last Admin: 02/20/17 08:22 Dose: Not Given Cyanocobalamin (Vitamin B12 1000 Mcg Tab) 1,000 mcg PO DAILY [facility] Last Admin: 02/20/17 08:23 Dose: Not Given Dextrose (Dextrose 50% Inj) 0 ml IV STAT PRN; Protocol PRN Reason: Hyglycemia Protocol Dextrose (Glutose 15) 0 gm PO ONCE PRN; Protocol PRN Reason: Hypoglycemia Protocol Escitalopram Oxalate (Lexapro) 5 mg PO DAILY [facility] Last Admin: 02/20/17 08:22 Dose: Not Given Folic Acid (Folic Acid) 1 mg PO DAILY [facility] Last Admin: 02/20/17 08:22 Dose: Not Given Glucagon (Glucagen Diagnostic Kit) 0 mg IM STAT PRN; Protocol PRN Reason: Hypoglycemia Protocol Vancomycin HCl 750 mg/ Sodium (Chloride) 250 mls @ 166.667 mls/hr IVPB Q12 [facility] Last Admin: 02/20/17 21:14 Dose: 166.667 mls/hr Cefepime HCl 2 gm/ Sodium (Chloride) 100 mls @ 100 mls/hr IVPB Q12 [facility] Last Admin: 02/20/17 21:09 Dose: 100 mls/hr Sodium Chloride (Sodium Chloride 0.9%) 1,000 mls @ 150 mls/hr IV .Q6H40M [facility] Stop: 02/21/17 15:06 Last Admin: 02/21/17 04:16 Dose: 150 mls/hr Insulin Detemir (Levemir) 10 units SC HS [facility] Last Admin: 02/20/17 22:30 Dose: Not Given Insulin Human Regular (Humulin R) 0 units SC ACHS [facility] PRN Reason: Protocol Last Admin: 02/20/17 22:30 Dose: Not Given Magnesium Oxide (Mag-Ox) 400 mg PO BID [facility] Last Admin: 02/20/17 16:50 Dose: Not Given Metoprolol Tartrate (Lopressor) 12.5 mg PO Q12H [facility] Last Admin: 02/20/17 23:55 Dose: Not Given Olanzapine (Zyprexa) 10 mg PO DAILY [facility] Last Admin: 02/20/17 08:23 Dose: Not Given Pantoprazole Sodium (Protonix Ec Tab) 40 mg PO DAILY [facility] Last Admin: 02/20/17 08:23 Dose: Not Given Potassium Chloride (K-Dur 20 Meq Er Tab) 20 meq PO DAILY [facility] Last Admin: 02/20/17 08:22 Dose: Not Given Tamsulosin HCl (Flomax) 0.4 mg PO DAILY [facility] Last Admin: 02/20/17 08:22 Dose: Not Given Zinc Sulfate (Zinc Sulfate 220 Mg Cap) 220 mg PO DAILY [facility] Last Admin: 02/20/17 08:23 Dose: Not Given - Labs Labs: 02/21/17 03:50 02/21/17 03:50 PT 15.1 Seconds (9.8-13.1) H 02/19/17 14:08 INR 1.3 (0.9-1.2) H 02/19/17 14:08 APTT 30.8 Seconds (25.6-37.1) 02/19/17 14:08 - Constitutional Appears: Non-toxic, No Acute Distress, Chronically Ill - Respiratory Exam Respiratory Exam: Clear to Ausculation Bilateral, NORMAL BREATHING PATTERN - Cardiovascular Exam Cardiovascular Exam: REGULAR RHYTHM, +S1, +S2 - GI/Abdominal Exam Additional comments: colostomy in LLQ - pink and patent - Rectal Exam Additional comments: sacral/gluteal wound has wound vac in place and on suction - Neurological Exam Additional comments: non verbal Assessment and Plan - Assessment and Plan (Free Text) Assessment: 61M with PMH of quadriplegia and colostomy with 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
[2017-02-21] MEDS: Insulin Regular 100 units/ml SC SCH ×4 (09:11→22:40)
[2017-02-21] MEDS: Dextrose 50% SYRINGE Inj (50 ml) IV PRN ×2 (09:33→17:19)
[2017-02-21] MEDS: Potassium Chloride 20 mEq ER Tab PO SCH (09:35)
[2017-02-21] MEDS: Magnesium Oxide 400 mg Tab UD PO SCH ×2 (09:36→17:24)
[2017-02-21] MEDS: Potassium CL 10mEq/100ml 100 ML IVPB SCH ×3 (09:39→12:15)
[2017-02-21] MEDS: Pantoprazole 40 mg EC Tab PO SCH (09:46)
[2017-02-21] MEDS: Cefepime 2 GM in Sodium Chloride 0.9% 100 ML IVPB SCH ×2 (12:16→21:51)
--- NOTE | 2017-02-21 15:49 | CP.PCM.PN ---
Subjective - Date & Time of Evaluation Date of Evaluation: 02/21/17 Time of Evaluation: 10:45 - Subjective Subjective: 61 y/o male with altered mental status with pmhx of DM, PE, paraplegic, osteomyelitis, bipolar, seen at bedside concerning bilateral lower extremity wounds and heel eschars. patient is awake but does not respond to commands. Patient was unable to communicate secondary to altered mental status. Objective - Vital Signs/Intake and Output Vital Signs (last 24 hours): Temp Pulse Resp BP Pulse Ox 97.5 F L 75 18 137/88 100 02/21/17 12:02 02/21/17 12:02 02/21/17 12:02 02/21/17 12:02 02/21/17 12:02 Intake and Output: 02/21/17 02/21/17 06:59 18:59 Intake Total 2300 Output Total 360 Balance 1940 - Medications Medications: Current Medications Apixaban (Eliquis) 2.5 mg PO BID@0900,2100 [facility] PRN Reason: Protocol Last Admin: 02/21/17 09:35 Dose: Not Given Baclofen (Lioresal) 10 mg PO DAILY [facility] Last Admin: 02/21/17 09:36 Dose: Not Given Cyanocobalamin (Vitamin B12 1000 Mcg Tab) 1,000 mcg PO DAILY [facility] Last Admin: 02/21/17 09:46 Dose: Not Given Dextrose (Dextrose 50% Inj) 0 ml IV STAT PRN; Protocol PRN Reason: Hyglycemia Protocol Last Admin: 02/21/17 09:33 Dose: 50 ml Dextrose (Glutose 15) 0 gm PO ONCE PRN; Protocol PRN Reason: Hypoglycemia Protocol Escitalopram Oxalate (Lexapro) 5 mg PO DAILY [facility] Last Admin: 02/21/17 09:36 Dose: Not Given Folic Acid (Folic Acid) 1 mg PO DAILY [facility] Last Admin: 02/21/17 09:35 Dose: Not Given Glucagon (Glucagen Diagnostic Kit) 0 mg IM STAT PRN; Protocol PRN Reason: Hypoglycemia Protocol Vancomycin HCl 750 mg/ Sodium (Chloride) 250 mls @ 166.667 mls/hr IVPB Q12 [facility] Last Admin: 02/21/17 12:18 Dose: 166.667 mls/hr Cefepime HCl 2 gm/ Sodium (Chloride) 100 mls @ 100 mls/hr IVPB Q12 [facility] Last Admin: 02/21/17 12:16 Dose: 100 mls/hr Insulin Detemir (Levemir) 10 units SC HS [facility] Last Admin: 02/20/17 22:30 Dose: Not Given Insulin Human Regular (Humulin R) 0 units SC ACHS [facility] PRN Reason: Protocol Last Admin: 02/21/17 12:08 Dose: Not Given Magnesium Oxide (Mag-Ox) 400 mg PO BID [facility] Last Admin: 02/21/17 09:36 Dose: Not Given Metoprolol Tartrate (Lopressor) 12.5 mg PO Q12H [facility] Last Admin: 02/21/17 12:09 Dose: Not Given Olanzapine (Zyprexa) 10 mg PO DAILY [facility] Last Admin: 02/21/17 09:46 Dose: Not Given Pantoprazole Sodium (Protonix Ec Tab) 40 mg PO DAILY [facility] Last Admin: 02/21/17 09:46 Dose: Not Given Potassium Chloride (K-Dur 20 Meq Er Tab) 20 meq PO DAILY [facility] Last Admin: 02/21/17 09:35 Dose: Not Given Tamsulosin HCl (Flomax) 0.4 mg PO DAILY [facility] Last Admin: 02/21/17 09:35 Dose: Not Given Zinc Sulfate (Zinc Sulfate 220 Mg Cap) 220 mg PO DAILY [facility] Last Admin: 02/21/17 09:46 Dose: Not Given - Labs Labs: 02/21/17 03:50 02/21/17 03:50 PT 15.1 Seconds (9.8-13.1) H 02/19/17 14:08 INR 1.3 (0.9-1.2) H 02/19/17 14:08 APTT 30.8 Seconds (25.6-37.1) 02/19/17 14:08 - Constitutional Appears: Well, Non-toxic, No Acute Distress - Extremities Exam Additional comments: Vasc: DP/PT 2/4 b/l, TG wnl, CFT < 3 sec to all digits neuro: unable to assess derm: superficial ulcerations diffuse on anterior shins b/l, posterior leg on right, dorsum of foot b/l, necrotic eschar noted to right heel,.preulcerative lesion noted to left heel, mild drainage, no purulence, no malodor, no active bleeding, no ascending cellulitis, no probe to bone ortho: unable to assess - Neurological Exam Neurological Exam: Alert, Awake, Oriented x3 - Psychiatric Exam Psychiatric exam: Normal Affect, Normal Mood - Skin Skin Exam: Normal Color, Warm Assessment and Plan - Assessment and Plan (Free Text) Assessment: 61 y/o male seen at bedside for bilateral lower extremity wounds, secondary to unknown etiology Plan: patient evaluated and chart reviewed discussed in detail with attending Dr. Valle labs and vitals reviewed continue IV abx as per ID applied xeroform, DSD, kerlix to lower extremities b/l applied multipodus boots for offloading heels patient will continue to be followed while in house
[2017-02-21] MEDS: Insulin Detemir 100 Units/ml Inj SC SCH (22:40)
--- NOTE | 2017-02-22 03:11 | CP.PCM.PN ---
Subjective - Date & Time of Evaluation Date of Evaluation: 02/22/17 Time of Evaluation: 07:15 - Subjective Subjective: SURGERY PROGRESS NOTE FOR DR. ROJO 61M seen and examined at bedside. Patient clinically same. Able to be respond to questions but at a slow pace. Objective - Vital Signs/Intake and Output Vital Signs (last 24 hours): Temp Pulse Resp BP Pulse Ox 98.3 F 64 20 126/56 L 100 02/22/17 00:02 02/22/17 00:02 02/22/17 00:02 02/22/17 00:02 02/22/17 00:02 Intake and Output: 02/21/17 02/22/17 18:59 06:59 Intake Total 1050 1050 Output Total 300 400 Balance 750 650 - Medications Medications: Current Medications Apixaban (Eliquis) 2.5 mg PO BID@0900,2100 [facility] PRN Reason: Protocol Last Admin: 02/21/17 21:48 Dose: Not Given Baclofen (Lioresal) 10 mg PO DAILY [facility] Last Admin: 02/21/17 09:36 Dose: Not Given Cyanocobalamin (Vitamin B12 1000 Mcg Tab) 1,000 mcg PO DAILY [facility] Last Admin: 02/21/17 09:46 Dose: Not Given Dextrose (Dextrose 50% Inj) 0 ml IV STAT PRN; Protocol PRN Reason: Hyglycemia Protocol Last Admin: 02/21/17 17:19 Dose: 50 ml Dextrose (Glutose 15) 0 gm PO ONCE PRN; Protocol PRN Reason: Hypoglycemia Protocol Escitalopram Oxalate (Lexapro) 5 mg PO DAILY [facility] Last Admin: 02/21/17 09:36 Dose: Not Given Folic Acid (Folic Acid) 1 mg PO DAILY [facility] Last Admin: 02/21/17 09:35 Dose: Not Given Glucagon (Glucagen Diagnostic Kit) 0 mg IM STAT PRN; Protocol PRN Reason: Hypoglycemia Protocol Vancomycin HCl 750 mg/ Sodium (Chloride) 250 mls @ 166.667 mls/hr IVPB Q12 [facility] Last Admin: 02/21/17 23:22 Dose: 166.667 mls/hr Cefepime HCl 2 gm/ Sodium (Chloride) 100 mls @ 100 mls/hr IVPB Q12 [facility] Last Admin: 02/21/17 21:51 Dose: 100 mls/hr Insulin Detemir (Levemir) 10 units SC HS [facility] Last Admin: 02/21/17 22:40 Dose: Not Given Insulin Human Regular (Humulin R) 0 units SC [facility] PRN Reason: Protocol Last Admin: 02/21/17 22:40 Dose: Not Given Magnesium Oxide (Mag-Ox) 400 mg PO BID [facility] Last Admin: 02/21/17 17:24 Dose: Not Given Metoprolol Tartrate (Lopressor) 12.5 mg PO Q12H [facility] Last Admin: 02/21/17 22:41 Dose: Not Given Olanzapine (Zyprexa) 10 mg PO DAILY [facility] Last Admin: 02/21/17 09:46 Dose: Not Given Pantoprazole Sodium (Protonix Ec Tab) 40 mg PO DAILY [facility] Last Admin: 02/21/17 09:46 Dose: Not Given Potassium Chloride (K-Dur 20 Meq Er Tab) 20 meq PO DAILY [facility] Last Admin: 02/21/17 09:35 Dose: Not Given Tamsulosin HCl (Flomax) 0.4 mg PO DAILY [facility] Last Admin: 02/21/17 09:35 Dose: Not Given Zinc Sulfate (Zinc Sulfate 220 Mg Cap) 220 mg PO DAILY [facility] Last Admin: 02/21/17 09:46 Dose: Not Given - Labs Labs: 02/21/17 03:50 02/21/17 03:50 PT 15.1 Seconds (9.8-13.1) H 02/19/17 14:08 INR 1.3 (0.9-1.2) H 02/19/17 14:08 APTT 30.8 Seconds (25.6-37.1) 02/19/17 14:08 - Constitutional Appears: Non-toxic, No Acute Distress - Respiratory Exam Respiratory Exam: Clear to Ausculation Bilateral, NORMAL BREATHING PATTERN - Cardiovascular Exam Cardiovascular Exam: REGULAR RHYTHM, +S1, +S2 - Extremities Exam Additional comments: contractures - Back Exam Additional comments: - wound vac in place- on suction Assessment and Plan - Assessment and Plan (Free Text) Assessment: 61M with PMH of quadriplegia and colostomy with 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
[2017-02-22 06:00] LABS: HEMATOCRIT 27.7 % (35.0-51.0); MEAN CELL VOLUME 92.3 fl (80.0-94.0); MEAN CORPUSCULAR HEMOGLOBIN 29.2 pg (27.0-31.0); MEAN CORPUSCULAR HGB CONC 31.6 g/dL (33.0-37.0); RED CELL DISTRIBUTION WIDTH 17.9 % (11.5-14.5); WHITE BLOOD COUNT 7.7 K/uL (4.8-10.8)
[2017-02-22 06:14] LABS: ALB/GLOB RATIO 0.6 (1.0-2.1); ALKALINE PHOSPHATASE 75 U/L (38-126); ALT/SGPT 25 U/L (21-72); AST/SGOT 21 U/L (17-59); BILIRUBIN,TOTAL 0.2 mg/dl (0.2-1.3); BLOOD UREA NITROGEN 25 mg/dl (9-20); CALCIUM 7.5 mg/dL (8.4-10.2); CARBON DIOXIDE 13 mmol/L (22-30); CHLORIDE 121 mmol/L (98-107); GFR AFRICAN-AMERICAN > 60; GLUCOSE,RANDOM 78 mg/dL (75-110); POTASSIUM 2.9 MMOL/L (3.6-5.0); SODIUM 144 mmol/l (132-148); TOTAL PROTEIN 5.7 G/DL (6.3-8.2)
[2017-02-22] MEDS: Insulin Regular 100 units/ml SC SCH ×4 (06:40→21:32)
[2017-02-22] MEDS: Cefepime 2 GM in Sodium Chloride 0.9% 100 ML IVPB SCH (09:10)
[2017-02-22] MEDS: Magnesium Oxide 400 mg Tab UD PO SCH (09:14)
[2017-02-22] MEDS: Potassium Chloride 20 mEq ER Tab PO SCH (09:14)
[2017-02-22] MEDS: Pantoprazole 40 mg EC Tab PO SCH (09:15)
[2017-02-22] MEDS: Potassium CL 10mEq/100ml 100 ML IVPB SCH ×2 (12:22→13:27)
[2017-02-22] MEDS: Potassium Chl 40mEq & D5W 1,000 ML IV SCH (12:23)
--- NOTE | 2017-02-22 13:12 | CP.PCM.PN ---
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 Sacral decubitus ulcer with healthy granulation tissue wound growing MDR- Pseudomonas Blood + coag neg staph IV rx in progress more alert/ weak/ bedridden for Vac in am Objective - Vital Signs/Intake and Output Vital Signs (last 24 hours): Temp Pulse Resp BP Pulse Ox 97.5 F L 58 L 18 121/63 100 02/22/17 12:22 02/22/17 12:22 02/22/17 12:22 02/22/17 12:22 02/22/17 12:22 Intake and Output: 02/22/17 02/22/17 06:59 18:59 Intake Total 1050 Output Total 800 Balance 250 - Medications Medications: Current Medications Apixaban (Eliquis) 2.5 mg PO BID@0900,2100 [facility] PRN Reason: Protocol Last Admin: 02/22/17 09:14 Dose: Not Given Cyanocobalamin (Vitamin B12 1000 Mcg Tab) 1,000 mcg PO DAILY [facility] Last Admin: 02/22/17 09:15 Dose: Not Given Dextrose (Dextrose 50% Inj) 0 ml IV STAT PRN; Protocol PRN Reason: Hyglycemia Protocol Last Admin: 02/21/17 17:19 Dose: 50 ml Dextrose (Glutose 15) 0 gm PO ONCE PRN; Protocol PRN Reason: Hypoglycemia Protocol Escitalopram Oxalate (Lexapro) 5 mg PO DAILY [facility] Last Admin: 02/22/17 09:14 Dose: Not Given Folic Acid (Folic Acid) 1 mg PO DAILY [facility] Last Admin: 02/22/17 09:14 Dose: Not Given Glucagon (Glucagen Diagnostic Kit) 0 mg IM STAT PRN; Protocol PRN Reason: Hypoglycemia Protocol Vancomycin HCl 750 mg/ Sodium (Chloride) 250 mls @ 166.667 mls/hr IVPB Q12 [facility] Last Admin: 02/22/17 09:16 Dose: 166.667 mls/hr Cefepime HCl 2 gm/ Sodium (Chloride) 100 mls @ 100 mls/hr IVPB Q12 [facility] Last Admin: 02/22/17 09:10 Dose: 100 mls/hr Potassium Chloride (Potassium Chloride 10 Meq/100 Ml) 100 mls @ 100 mls/hr IVPB Q1 [facility] Stop: 02/22/17 13:59 Last Admin: 02/22/17 12:22 Dose: 100 mls/hr Potassium Chloride/Dextrose (Potassium Chl 40 Meq In D5w) 1,000 mls @ 80 mls/ hr IV .[id number] [facility] Stop: 02/23/17 11:28 Last Admin: 02/22/17 12:23 Dose: 80 mls/hr Insulin Detemir (Levemir) 10 units SC HS [facility] Last Admin: 02/21/17 22:40 Dose: Not Given Insulin Human Regular (Humulin R) 0 units SC ACHS [facility] PRN Reason: Protocol Last Admin: 02/22/17 06:40 Dose: Not Given Metoprolol Tartrate (Lopressor) 12.5 mg PO Q12H [facility] Last Admin: 02/21/17 22:41 Dose: Not Given Olanzapine (Zyprexa) 10 mg PO DAILY [facility] Last Admin: 02/22/17 09:15 Dose: Not Given Pantoprazole Sodium (Protonix Ec Tab) 40 mg PO DAILY [facility] Last Admin: 02/22/17 09:15 Dose: Not Given Potassium Chloride (K-Dur 20 Meq Er Tab) 20 meq PO DAILY [facility] Last Admin: 02/22/17 09:14 Dose: Not Given Tamsulosin HCl (Flomax) 0.4 mg PO DAILY [facility] Last Admin: 02/22/17 09:14 Dose: Not Given Zinc Sulfate (Zinc Sulfate 220 Mg Cap) 220 mg PO DAILY [facility] Last Admin: 02/22/17 09:15 Dose: Not Given - Labs Labs: 02/22/17 05:30 02/22/17 05:30 PT 15.1 Seconds (9.8-13.1) H 02/19/17 14:08 INR 1.3 (0.9-1.2) H 02/19/17 14:08 APTT 30.8 Seconds (25.6-37.1) 02/19/17 14:08 - Constitutional Appears: Confused, Chronically Ill - Head Exam Head Exam: NORMOCEPHALIC - Eye Exam Eye Exam: absent: Scleral icterus - ENT Exam ENT Exam: Mucous Membranes Dry - Neck Exam Neck Exam: absent: Lymphadenopathy - Respiratory Exam Respiratory Exam: Decreased Breath Sounds, Rhonchi - Cardiovascular Exam Cardiovascular Exam: REGULAR RHYTHM - GI/Abdominal Exam GI & Abdominal Exam: Distended, Soft. absent: Tenderness - Extremities Exam Extremities Exam: absent: Calf Tenderness, Pedal Edema, Tenderness - Back Exam Back Exam: absent: CVA tenderness (L), CVA tenderness (R) - Neurological Exam Neurological Exam: Alert, Altered, CN II-XII Intact Assessment and Plan (1) Decubitus ulcer Status: Acute (2) Sepsis Status: Acute - Assessment and Plan (Free Text) Plan: add zyvox/ tobra cont surgical debridement/ wound care
[2017-02-22] MEDS ORDERED: DALBAVANCIN HCL 1,500 MG in Dextrose 5% In Water 250 ML IV ONE (13:14)
[2017-02-22] MEDS: Tobramycin inj 60 MG in Sodium Chloride 0.9% 100 ML IV SCH (20:17)
[2017-02-22] MEDS: Dextrose 50% SYRINGE Inj (50 ml) IV PRN (21:25)
[2017-02-22] MEDS: Insulin Detemir 100 Units/ml Inj SC SCH (21:32)
[2017-02-23] MEDS: Tobramycin inj 60 MG in Sodium Chloride 0.9% 100 ML IV SCH ×3 (00:38→18:12)
[2017-02-23] MEDS: Potassium Chl 40mEq & D5W 1,000 ML IV SCH (01:19)
[2017-02-23 06:02] LABS: BASO % 0.4 % (0.0-2.0); EOS # 0.4 K/uL (0.0-0.7); EOS % 4.9 % (0.0-4.0); HEMATOCRIT 28.1 % (35.0-51.0); LYMPH # 1.4 K/uL (1.0-4.3); LYMPH % 16.6 % (20.0-40.0); MEAN CORPUSCULAR HEMOGLOBIN 29.2 pg (27.0-31.0); MEAN PLATELET VOLUME 8.1 fl (7.2-11.7); MONO # 0.6 K/uL (0.0-0.8); MONO % 7.2 % (0.0-10.0); NEUT # 5.9 K/uL (1.8-7.0); NEUT % 70.9 % (50.0-75.0); NRBC % 0.1 % (0.0-0.0); RED CELL DISTRIBUTION WIDTH 18.4 % (11.5-14.5); WHITE BLOOD COUNT 8.3 K/uL (4.8-10.8)
[2017-02-23 06:43] LABS: ALKALINE PHOSPHATASE 74 U/L (38-126); ALT/SGPT 31 U/L (21-72); AST/SGOT 20 U/L (17-59); BILIRUBIN,TOTAL 0.2 mg/dl (0.2-1.3); BLOOD UREA NITROGEN 23 mg/dl (9-20); CALCIUM 7.2 mg/dL (8.4-10.2); CARBON DIOXIDE 13 mmol/L (22-30); CHLORIDE 119 mmol/L (98-107); GFR AFRICAN-AMERICAN > 60; GLUCOSE,RANDOM 78 mg/dL (75-110); POTASSIUM 3.4 MMOL/L (3.6-5.0); SODIUM 142 mmol/l (132-148); TOTAL PROTEIN 5.3 G/DL (6.3-8.2)
[2017-02-23] MEDS: Insulin Regular 100 units/ml SC SCH ×4 (06:45→21:40)
[2017-02-23 07:00] LABS: ALB/GLOB RATIO 0.6 (1.0-2.1)
[2017-02-23 07:17] LABS: THYROID STIMULATING HORMONE 2.65 mIU/ML (0.46-4.68)
[2017-02-23] MEDS ORDERED: DAPTOmycin 500 MG in Sodium Chloride 0.9% 100 ML IVPB SCH (09:00)
[2017-02-23] MEDS: Potassium Chloride 20 mEq ER Tab PO SCH (09:41)
[2017-02-23] MEDS: Pantoprazole 40 mg EC Tab PO SCH (09:41)
--- NOTE | 2017-02-23 10:31 | CP.PCM.PN ---
Subjective - Date & Time of Evaluation Date of Evaluation: 02/23/17 Time of Evaluation: 10:00 - Subjective Subjective: Patient was seen and examined at the bedside. Objective - Vital Signs/Intake and Output Vital Signs (last 24 hours): Temp Pulse Resp BP Pulse Ox 97.5 F L 61 18 133/65 100 02/23/17 08:02 02/23/17 09:00 02/23/17 08:02 02/23/17 08:02 02/23/17 08:02 - Medications Medications: Current Medications Apixaban (Eliquis) 2.5 mg PO BID@0900,2100 [facility] PRN Reason: Protocol Last Admin: 02/23/17 09:38 Dose: Not Given Cyanocobalamin (Vitamin B12 1000 Mcg Tab) 1,000 mcg PO DAILY [facility] Last Admin: 02/23/17 09:41 Dose: Not Given Dextrose (Dextrose 50% Inj) 0 ml IV STAT PRN; Protocol PRN Reason: Hyglycemia Protocol Last Admin: 02/22/17 21:25 Dose: 50 ml Dextrose (Glutose 15) 0 gm PO ONCE PRN; Protocol PRN Reason: Hypoglycemia Protocol Escitalopram Oxalate (Lexapro) 5 mg PO DAILY [facility] Last Admin: 02/23/17 09:41 Dose: Not Given Folic Acid (Folic Acid) 1 mg PO DAILY [facility] Last Admin: 02/23/17 09:40 Dose: Not Given Glucagon (Glucagen Diagnostic Kit) 0 mg IM STAT PRN; Protocol PRN Reason: Hypoglycemia Protocol Potassium Chloride/Dextrose (Potassium Chl 40 Meq In D5w) 1,000 mls @ 80 mls/ hr IV .[id number] [facility] Stop: 02/23/17 11:28 Last Admin: 02/23/17 01:19 Dose: 80 mls/hr Tobramycin Sulfate 60 mg/ (Sodium Chloride) 101.5 mls @ 100 mls/hr IV Q8 [facility] Last Admin: 02/23/17 09:41 Dose: 100 mls/hr Daptomycin 500 mg/ Sodium (Chloride) 100 mls @ 100 mls/hr IVPB DAILY [facility] Stop: 02/28/17 09:01 Last Admin: 02/23/17 09:40 Dose: 100 mls/hr Insulin Detemir (Levemir) 10 units SC HS [facility] Last Admin: 02/22/17 21:32 Dose: Not Given Insulin Human Regular (Humulin R) 0 units SC ACHS [facility] PRN Reason: Protocol Last Admin: 02/23/17 06:45 Dose: Not Given Metoprolol Tartrate (Lopressor) 12.5 mg PO Q12H [facility] Last Admin: 02/22/17 23:13 Dose: Not Given Olanzapine (Zyprexa) 10 mg PO DAILY [facility] Last Admin: 02/23/17 09:42 Dose: Not Given Pantoprazole Sodium (Protonix Ec Tab) 40 mg PO DAILY [facility] Last Admin: 02/23/17 09:41 Dose: Not Given Potassium Chloride (K-Dur 20 Meq Er Tab) 20 meq PO DAILY [facility] Last Admin: 02/23/17 09:41 Dose: Not Given Tamsulosin HCl (Flomax) 0.4 mg PO DAILY [facility] Last Admin: 02/23/17 09:40 Dose: Not Given Zinc Sulfate (Zinc Sulfate 220 Mg Cap) 220 mg PO DAILY [facility] Last Admin: 02/23/17 09:42 Dose: Not Given - Labs Labs: 02/23/17 05:30 02/23/17 05:30 PT 15.1 Seconds (9.8-13.1) H 02/19/17 14:08 INR 1.3 (0.9-1.2) H 02/19/17 14:08 APTT 30.8 Seconds (25.6-37.1) 02/19/17 14:08 - Constitutional Appears: Well, Non-toxic, No Acute Distress - Head Exam Head Exam: ATRAUMATIC, NORMAL INSPECTION, NORMOCEPHALIC - ENT Exam ENT Exam: Mucous Membranes Moist - Respiratory Exam Respiratory Exam: NORMAL BREATHING PATTERN - Cardiovascular Exam Cardiovascular Exam: +S1, +S2 - GI/Abdominal Exam GI & Abdominal Exam: Soft, Normal Bowel Sounds Additional comments: colostomy in place - Back Exam Additional comments: wound vac in place to the sacral wound - Psychiatric Exam Psychiatric exam: Normal Mood - Skin Skin Exam: Dry, Intact, Normal Color, Warm Assessment and Plan - Assessment and Plan (Free Text) Assessment: 61 y.o. male with sacral decubitus ulcer Plan: - Continue antibiotics - Continue wound vac - Continue care as per medical team
--- NOTE | 2017-02-23 10:51 | CP.PCM.PN ---
Subjective - Date & Time of Evaluation Date of Evaluation: 02/21/17 Time of Evaluation: 09:35 - Subjective Subjective: Patient continues to have no response to verbal stimuli. Has no fever. Objective - Vital Signs/Intake and Output Vital Signs (last 24 hours): Temp Pulse Resp BP Pulse Ox 97.5 F L 61 18 133/65 100 02/23/17 08:02 02/23/17 09:00 02/23/17 08:02 02/23/17 08:02 02/23/17 08:02 - Medications Medications: Current Medications Apixaban (Eliquis) 2.5 mg PO BID@0900,2100 [facility] PRN Reason: Protocol Last Admin: 02/23/17 09:38 Dose: Not Given Cyanocobalamin (Vitamin B12 1000 Mcg Tab) 1,000 mcg PO DAILY [facility] Last Admin: 02/23/17 09:41 Dose: Not Given Dextrose (Dextrose 50% Inj) 0 ml IV STAT PRN; Protocol PRN Reason: Hyglycemia Protocol Last Admin: 02/22/17 21:25 Dose: 50 ml Dextrose (Glutose 15) 0 gm PO ONCE PRN; Protocol PRN Reason: Hypoglycemia Protocol Folic Acid (Folic Acid) 1 mg PO DAILY [facility] Last Admin: 02/23/17 09:40 Dose: Not Given Glucagon (Glucagen Diagnostic Kit) 0 mg IM STAT PRN; Protocol PRN Reason: Hypoglycemia Protocol Potassium Chloride/Dextrose (Potassium Chl 40 Meq In D5w) 1,000 mls @ 80 mls/ hr IV .[id number] [facility] Stop: 02/23/17 11:28 Last Admin: 02/23/17 01:19 Dose: 80 mls/hr Tobramycin Sulfate 60 mg/ (Sodium Chloride) 101.5 mls @ 100 mls/hr IV Q8 [facility] Last Admin: 02/23/17 09:41 Dose: 100 mls/hr Daptomycin 500 mg/ Sodium (Chloride) 100 mls @ 100 mls/hr IVPB DAILY [facility] Stop: 02/28/17 09:01 Last Admin: 02/23/17 09:40 Dose: 100 mls/hr Insulin Detemir (Levemir) 10 units SC HS [facility] Last Admin: 02/22/17 21:32 Dose: Not Given Insulin Human Regular (Humulin R) 0 units SC ACHS [facility] PRN Reason: Protocol Last Admin: 02/23/17 06:45 Dose: Not Given Metoprolol Tartrate (Lopressor) 12.5 mg PO Q12H [facility] Last Admin: 02/22/17 23:13 Dose: Not Given Olanzapine (Zyprexa) 10 mg PO DAILY [facility] Last Admin: 02/23/17 09:42 Dose: Not Given Pantoprazole Sodium (Protonix Ec Tab) 40 mg PO DAILY [facility] Last Admin: 02/23/17 09:41 Dose: Not Given Potassium Chloride (K-Dur 20 Meq Er Tab) 20 meq PO DAILY [facility] Last Admin: 02/23/17 09:41 Dose: Not Given Tamsulosin HCl (Flomax) 0.4 mg PO DAILY [facility] Last Admin: 02/23/17 09:40 Dose: Not Given Zinc Sulfate (Zinc Sulfate 220 Mg Cap) 220 mg PO DAILY [facility] Last Admin: 02/23/17 09:42 Dose: Not Given - Labs Labs: 02/23/17 05:30 02/23/17 05:30 PT 15.1 Seconds (9.8-13.1) H 02/19/17 14:08 INR 1.3 (0.9-1.2) H 02/19/17 14:08 APTT 30.8 Seconds (25.6-37.1) 02/19/17 14:08 - Head Exam Head Exam: NORMAL INSPECTION - Eye Exam Eye Exam: Normal appearance - ENT Exam ENT Exam: Mucous Membranes Moist - Respiratory Exam Respiratory Exam: Clear to Ausculation Bilateral - Cardiovascular Exam Cardiovascular Exam: REGULAR RHYTHM - GI/Abdominal Exam GI & Abdominal Exam: Normal Bowel Sounds - Neurological Exam Neurological Exam: Awake Assessment and Plan (1) Decubitus ulcer Status: Acute (2) Sepsis Status: Acute (3) History of pulmonary embolism Status: Acute (4) Diabetes mellitus Status: Chronic (5) Morbid exogenous obesity Status: Acute - Assessment and Plan (Free Text) Plan: con meds cont tx con iv antibiotics cont wound care
--- NOTE | 2017-02-23 10:53 | CP.PCM.PN ---
Subjective - Date & Time of Evaluation Date of Evaluation: 02/22/17 Time of Evaluation: 10:20 - Subjective Subjective: Patient for the first time since admission started responding to simple questions Sister was made aware of this development Has no fever. Objective - Vital Signs/Intake and Output Vital Signs (last 24 hours): Temp Pulse Resp BP Pulse Ox 97.5 F L 61 18 133/65 100 02/23/17 08:02 02/23/17 09:00 02/23/17 08:02 02/23/17 08:02 02/23/17 08:02 - Medications Medications: Current Medications Apixaban (Eliquis) 2.5 mg PO BID@0900,2100 [facility] PRN Reason: Protocol Last Admin: 02/23/17 09:38 Dose: Not Given Cyanocobalamin (Vitamin B12 1000 Mcg Tab) 1,000 mcg PO DAILY [facility] Last Admin: 02/23/17 09:41 Dose: Not Given Dextrose (Dextrose 50% Inj) 0 ml IV STAT PRN; Protocol PRN Reason: Hyglycemia Protocol Last Admin: 02/22/17 21:25 Dose: 50 ml Dextrose (Glutose 15) 0 gm PO ONCE PRN; Protocol PRN Reason: Hypoglycemia Protocol Folic Acid (Folic Acid) 1 mg PO DAILY [facility] Last Admin: 02/23/17 09:40 Dose: Not Given Glucagon (Glucagen Diagnostic Kit) 0 mg IM STAT PRN; Protocol PRN Reason: Hypoglycemia Protocol Potassium Chloride/Dextrose (Potassium Chl 40 Meq In D5w) 1,000 mls @ 80 mls/ hr IV .[id number] [facility] Stop: 02/23/17 11:28 Last Admin: 02/23/17 01:19 Dose: 80 mls/hr Tobramycin Sulfate 60 mg/ (Sodium Chloride) 101.5 mls @ 100 mls/hr IV Q8 [facility] Last Admin: 02/23/17 09:41 Dose: 100 mls/hr Daptomycin 500 mg/ Sodium (Chloride) 100 mls @ 100 mls/hr IVPB DAILY [facility] Stop: 02/28/17 09:01 Last Admin: 02/23/17 09:40 Dose: 100 mls/hr Linezolid (Zyvox 600mg/300ml D5w) 600 mg in 300 mls @ 300 mls/hr IVPB Q12 [facility] Insulin Detemir (Levemir) 10 units SC HS [facility] Last Admin: 02/22/17 21:32 Dose: Not Given Insulin Human Regular (Humulin R) 0 units SC [facility] PRN Reason: Protocol Last Admin: 02/23/17 06:45 Dose: Not Given Metoprolol Tartrate (Lopressor) 12.5 mg PO Q12H [facility] Last Admin: 02/22/17 23:13 Dose: Not Given Olanzapine (Zyprexa) 10 mg PO DAILY [facility] Last Admin: 02/23/17 09:42 Dose: Not Given Pantoprazole Sodium (Protonix Ec Tab) 40 mg PO DAILY [facility] Last Admin: 02/23/17 09:41 Dose: Not Given Potassium Chloride (K-Dur 20 Meq Er Tab) 20 meq PO DAILY [facility] Last Admin: 02/23/17 09:41 Dose: Not Given Tamsulosin HCl (Flomax) 0.4 mg PO DAILY [facility] Last Admin: 02/23/17 09:40 Dose: Not Given Zinc Sulfate (Zinc Sulfate 220 Mg Cap) 220 mg PO DAILY [facility] Last Admin: 02/23/17 09:42 Dose: Not Given - Labs Labs: 02/23/17 05:30 02/23/17 05:30 PT 15.1 Seconds (9.8-13.1) H 02/19/17 14:08 INR 1.3 (0.9-1.2) H 02/19/17 14:08 APTT 30.8 Seconds (25.6-37.1) 02/19/17 14:08 - Head Exam Head Exam: NORMAL INSPECTION - Eye Exam Eye Exam: Normal appearance - ENT Exam ENT Exam: Mucous Membranes Moist - Respiratory Exam Respiratory Exam: Clear to Ausculation Bilateral - Cardiovascular Exam Cardiovascular Exam: REGULAR RHYTHM - GI/Abdominal Exam GI & Abdominal Exam: Normal Bowel Sounds - Neurological Exam Neurological Exam: Awake Assessment and Plan (1) Decubitus ulcer Status: Acute (2) Sepsis Status: Acute (3) History of pulmonary embolism Status: Acute (4) Diabetes mellitus Status: Chronic (5) Morbid exogenous obesity Status: Acute - Assessment and Plan (Free Text) Plan: cont meds cont antibiotics check labs cont to encourage communication. speech therapy
--- NOTE | 2017-02-23 10:55 | CP.PCM.PN ---
Subjective - Date & Time of Evaluation Date of Evaluation: 02/23/17 Time of Evaluation: 10:53 - Subjective Subjective: Patient continues to improve Answers simple questions and smiles when talking. Has no fever. Objective - Vital Signs/Intake and Output Vital Signs (last 24 hours): Temp Pulse Resp BP Pulse Ox 97.5 F L 61 18 133/65 100 02/23/17 08:02 02/23/17 09:00 02/23/17 08:02 02/23/17 08:02 02/23/17 08:02 - Medications Medications: Current Medications Apixaban (Eliquis) 2.5 mg PO BID@0900,2100 [facility] PRN Reason: Protocol Last Admin: 02/23/17 09:38 Dose: Not Given Cyanocobalamin (Vitamin B12 1000 Mcg Tab) 1,000 mcg PO DAILY [facility] Last Admin: 02/23/17 09:41 Dose: Not Given Dextrose (Dextrose 50% Inj) 0 ml IV STAT PRN; Protocol PRN Reason: Hyglycemia Protocol Last Admin: 02/22/17 21:25 Dose: 50 ml Dextrose (Glutose 15) 0 gm PO ONCE PRN; Protocol PRN Reason: Hypoglycemia Protocol Folic Acid (Folic Acid) 1 mg PO DAILY [facility] Last Admin: 02/23/17 09:40 Dose: Not Given Glucagon (Glucagen Diagnostic Kit) 0 mg IM STAT PRN; Protocol PRN Reason: Hypoglycemia Protocol Potassium Chloride/Dextrose (Potassium Chl 40 Meq In D5w) 1,000 mls @ 80 mls/ hr IV .[id number] [facility] Stop: 02/23/17 11:28 Last Admin: 02/23/17 01:19 Dose: 80 mls/hr Tobramycin Sulfate 60 mg/ (Sodium Chloride) 101.5 mls @ 100 mls/hr IV Q8 [facility] Last Admin: 02/23/17 09:41 Dose: 100 mls/hr Linezolid (Zyvox 600mg/300ml D5w) 600 mg in 300 mls @ 300 mls/hr IVPB Q12 [facility] Insulin Detemir (Levemir) 10 units SC HS [facility] Last Admin: 02/22/17 21:32 Dose: Not Given Insulin Human Regular (Humulin R) 0 units SC ACHS [facility] PRN Reason: Protocol Last Admin: 02/23/17 06:45 Dose: Not Given Metoprolol Tartrate (Lopressor) 12.5 mg PO Q12H [facility] Last Admin: 02/22/17 23:13 Dose: Not Given Olanzapine (Zyprexa) 10 mg PO DAILY [facility] Last Admin: 02/23/17 09:42 Dose: Not Given Pantoprazole Sodium (Protonix Ec Tab) 40 mg PO DAILY [facility] Last Admin: 02/23/17 09:41 Dose: Not Given Potassium Chloride (K-Dur 20 Meq Er Tab) 20 meq PO DAILY [facility] Last Admin: 02/23/17 09:41 Dose: Not Given Tamsulosin HCl (Flomax) 0.4 mg PO DAILY [facility] Last Admin: 02/23/17 09:40 Dose: Not Given Zinc Sulfate (Zinc Sulfate 220 Mg Cap) 220 mg PO DAILY [facility] Last Admin: 02/23/17 09:42 Dose: Not Given - Labs Labs: 02/23/17 05:30 02/23/17 05:30 PT 15.1 Seconds (9.8-13.1) H 02/19/17 14:08 INR 1.3 (0.9-1.2) H 02/19/17 14:08 APTT 30.8 Seconds (25.6-37.1) 02/19/17 14:08 - Head Exam Head Exam: NORMAL INSPECTION - Eye Exam Eye Exam: Normal appearance - ENT Exam ENT Exam: Mucous Membranes Moist - Respiratory Exam Respiratory Exam: Clear to Ausculation Bilateral - Cardiovascular Exam Cardiovascular Exam: REGULAR RHYTHM - GI/Abdominal Exam GI & Abdominal Exam: Normal Bowel Sounds - Neurological Exam Neurological Exam: Awake Assessment and Plan (1) Decubitus ulcer Status: Acute (2) Sepsis Status: Acute (3) History of pulmonary embolism Status: Acute (4) Diabetes mellitus Status: Chronic (5) Morbid exogenous obesity Status: Acute - Assessment and Plan (Free Text) Plan: cont meds Cont tx Cont PT\ speech therapy check labs
[2017-02-23] MEDS ORDERED: Glucagon Recombinant 1 mg Inj IM PRN (10:58)
[2017-02-23] MEDS ORDERED: Dextrose 50% SYRINGE Inj (50 ml) IV PRN (10:58)
[2017-02-23] MEDS ORDERED: Dextrose 50% SYRINGE Inj (50 ml) IVP ONE (11:00)
[2017-02-23 12:02] LABS: BASO % 0.6 % (0.0-2.0); EOS # 0.3 K/uL (0.0-0.7); EOS % 4.1 % (0.0-4.0); HEMATOCRIT 28.9 % (35.0-51.0); MEAN CELL VOLUME 91.3 fl (80.0-94.0); MEAN CORPUSCULAR HEMOGLOBIN 29.6 pg (27.0-31.0); MEAN CORPUSCULAR HGB CONC 32.4 g/dL (33.0-37.0); MEAN PLATELET VOLUME 8.1 fl (7.2-11.7); MONO # 0.5 K/uL (0.0-0.8); NEUT % 73.3 % (50.0-75.0); RED CELL DISTRIBUTION WIDTH 18.6 % (11.5-14.5); WHITE BLOOD COUNT 6.8 K/uL (4.8-10.8)
[2017-02-23 12:42] LABS: THYROID STIMULATING HORMONE 2.51 mIU/ML (0.46-4.68)
--- NOTE | 2017-02-23 13:23 | PQF GENQUE ---
Dr. Matthews, Lopez Catheter related UTI? OR: Disagree OR; Other explanation of clinical finding ER note includes: According to report provided from the care home, patient was started on percocet yesterday and has multiple pressure ulcers with indwelling lopez catheter. Initial Impression:lethargy with multiple sources of possible sepsis including skin ulcers, indwelling lopez catheter and possible pneumonia. Neurology note: dxs. include: He has underlying UTI Initial ID Assessment: (1) Decubitus ulcer Status: Acute (2) Sepsis Status: Acute - Assessment: multiple possible sources may need debridement of wounds await cultures continue iv antibiotics urine culture report : Vancomycin Resistant E-faecium This form is a permanent part of the medical record Clarification of your documentation is requested to better reflect the severity of illness and intensity of treatment of your patient. Indicators present [] Specify: [] [] Specify: [] [] Specify: [] [] Specify: [] Location in the medical record that reflects the above clinical findings: [] Treatment Provided: [] PHYSICIAN'S RESPONSE Based on your medical judgment of the clinical indicators outlined above please clarify the following: [] Practitioner response [] If unable to determine, please check the box, sign and date. Present On Admission (POA) Indicator: [] Present at the time of admission [] Not present at the time of admission [] Clinically Undetermined In responding to this query, please exercise your independent professional judgment. The fact that a question is asked does not imply that any particular answer is desired or expected. Thank you for your clarification on this documentation. If you have any questions please call. * Thank you, Sasha Puckett RN BSN ext. #[phone] MTDD
[2017-02-23 13:32] LABS: CHLORIDE 121 mmol/L (98-107)
[2017-02-23 13:33] LABS: POTASSIUM 3.2 MMOL/L (3.6-5.0); SODIUM 140 mmol/l (132-148)
[2017-02-23 13:35] LABS: ALB/GLOB RATIO 0.5 (1.0-2.1); AST/SGOT 27 U/L (17-59); BILIRUBIN,TOTAL 0.3 mg/dl (0.2-1.3); BLOOD UREA NITROGEN 23 mg/dl (9-20); CARBON DIOXIDE 12 mmol/L (22-30); GFR AFRICAN-AMERICAN > 60; TOTAL PROTEIN 5.7 G/DL (6.3-8.2)
[2017-02-23 13:36] LABS: ALKALINE PHOSPHATASE 79 U/L (38-126); ALT/SGPT 20 U/L (21-72); CALCIUM 7.5 mg/dL (8.4-10.2); GLUCOSE,RANDOM 120 mg/dL (75-110)
[2017-02-23] MEDS: Potassium CL 10mEq/100ml 100 ML IVPB SCH ×3 (15:00→17:02)
--- NOTE | 2017-02-23 15:53 | CP.PCM.PN ---
Subjective - Date & Time of Evaluation Date of Evaluation: 02/23/17 Time of Evaluation: 15:30 - Subjective Subjective: Patient is a 61 y/o male with altered mental status with PMHX of DM, PE, paraplegic, osteomyelitis, and bipolar was seen at bedside for lower extremity wounds and heel eschars bilaterally. Patient is awake but does not respond to commands. Patient was unable to communicate secondary to altered mental status. Objective - Vital Signs/Intake and Output Vital Signs (last 24 hours): Temp Pulse Resp BP Pulse Ox 97.5 F L 68 18 110/66 98 02/23/17 11:56 02/23/17 15:20 02/23/17 11:56 02/23/17 11:56 02/23/17 15:20 - Medications Medications: Current Medications Apixaban (Eliquis) 2.5 mg PO BID@0900,2100 [facility] PRN Reason: Protocol Last Admin: 02/23/17 09:38 Dose: Not Given Cyanocobalamin (Vitamin B12 1000 Mcg Tab) 1,000 mcg PO DAILY [facility] Last Admin: 02/23/17 09:41 Dose: Not Given Dextrose (Dextrose 50% Inj) 0 ml IV STAT PRN; Protocol PRN Reason: Hyglycemia Protocol Last Admin: 02/22/17 21:25 Dose: 50 ml Dextrose (Glutose 15) 0 gm PO ONCE PRN; Protocol PRN Reason: Hypoglycemia Protocol Dextrose (Dextrose 50% Inj) 0 ml IV STAT PRN; Protocol PRN Reason: Hyglycemia Protocol Dextrose (Glutose 15) 0 gm PO ONCE PRN; Protocol PRN Reason: Hypoglycemia Protocol Folic Acid (Folic Acid) 1 mg PO DAILY [facility] Last Admin: 02/23/17 09:40 Dose: Not Given Glucagon (Glucagen Diagnostic Kit) 0 mg IM STAT PRN; Protocol PRN Reason: Hypoglycemia Protocol Glucagon (Glucagen Diagnostic Kit) 0 mg IM STAT PRN; Protocol PRN Reason: Hypoglycemia Protocol Tobramycin Sulfate 60 mg/ (Sodium Chloride) 101.5 mls @ 100 mls/hr IV Q8 [facility] Last Admin: 02/23/17 09:41 Dose: 100 mls/hr Linezolid (Zyvox 600mg/300ml D5w) 600 mg in 300 mls @ 300 mls/hr IVPB Q12 [facility] Potassium Chloride (Potassium Chloride 10 Meq/100 Ml) 100 mls @ 100 mls/hr IVPB Q1 [facility] Stop: 02/23/17 16:59 Last Admin: 02/23/17 15:00 Dose: 100 mls/hr Insulin Detemir (Levemir) 10 units SC HS [facility] Last Admin: 02/22/17 21:32 Dose: Not Given Insulin Human Regular (Humulin R) 0 units SC ACHS [facility] PRN Reason: Protocol Last Admin: 02/23/17 11:56 Dose: Not Given Metoprolol Tartrate (Lopressor) 12.5 mg PO Q12H [facility] Last Admin: 02/23/17 10:50 Dose: Not Given Olanzapine (Zyprexa) 10 mg PO DAILY [facility] Last Admin: 02/23/17 09:42 Dose: Not Given Pantoprazole Sodium (Protonix Ec Tab) 40 mg PO DAILY [facility] Last Admin: 02/23/17 09:41 Dose: Not Given Potassium Chloride (K-Dur 20 Meq Er Tab) 20 meq PO DAILY [facility] Last Admin: 02/23/17 09:41 Dose: Not Given Tamsulosin HCl (Flomax) 0.4 mg PO DAILY [facility] Last Admin: 02/23/17 09:40 Dose: Not Given Zinc Sulfate (Zinc Sulfate 220 Mg Cap) 220 mg PO DAILY [facility] Last Admin: 02/23/17 09:42 Dose: Not Given - Labs Labs: 02/23/17 11:30 02/23/17 11:30 PT 15.1 Seconds (9.8-13.1) H 02/19/17 14:08 INR 1.3 (0.9-1.2) H 02/19/17 14:08 APTT 30.8 Seconds (25.6-37.1) 02/19/17 14:08 - Constitutional Appears: Well, Non-toxic, No Acute Distress - Extremities Exam Additional comments: Vasc: DP 2/4, PT 2/4, [employer] <3 seconds, no edema noted bilaterally, temperature gradient WNL Ortho: unable to perform secondary to altered mental status Neuro: unable to perform secondary to altered mental status Derm: superficial ulcerations diffused along the anterior lower leg extremity bilaterally and posterior along the mid calf. Stable necrotic eschar noted to the right heel and pre-ulcerative lesion noted to the left heel. Superficial ulcerations exhibit mild seroussangious drainage; no purulence, no malodor, no ascending cellulitis, or no probe to bone noted. - Neurological Exam Neurological Exam: Alert, Awake, Oriented x3 - Psychiatric Exam Psychiatric exam: Normal Affect, Normal Mood Assessment and Plan - Assessment and Plan (Free Text) Assessment: 61 y/o male seen at bedside for lower extremity wounds bilaterally secondary to unknown etiology Plan: Patient seen, examined, and evaluated. Discussed with attending Dr. Estrada Labs and vitals reviewed. Continue IV abx as per ID. Lower leg extremity ulcers and eschars were dressed with xeroform, DSD, ABD, and xeroform. Mulitpodus boots for offloading heels was applied. Patient will continue to be followed while in house.
[2017-02-23] MEDS: Linezolid 600 mg in D5W 300 ml 600 MG/300 ML BAG IVPB SCH (21:48)
[2017-02-23] MEDS: Insulin Detemir 100 Units/ml Inj SC SCH (21:52)
[2017-02-24] MEDS: Tobramycin inj 60 MG in Sodium Chloride 0.9% 100 ML IV SCH ×3 (00:50→17:24)
[2017-02-24] MEDS: Dextrose 5%/0.45% NS 1,000 ML IV SCH ×3 (06:28→22:03)
--- NOTE | 2017-02-24 07:45 | CP.PCM.PN ---
Subjective - Date & Time of Evaluation Date of Evaluation: 02/24/17 Time of Evaluation: 07:00 - Subjective Subjective: SURGERY PROGRESS NOTE FOR DR. ROJO 61M seen and examined at bedside. Patient clinically same. Still unable to communicate but responds to questions by nodding Objective - Vital Signs/Intake and Output Vital Signs (last 24 hours): Temp Pulse Resp BP Pulse Ox 97.6 F 77 20 133/84 98 02/24/17 05:00 02/24/17 05:00 02/24/17 05:00 02/24/17 05:00 02/24/17 05:00 - Medications Medications: Current Medications Apixaban (Eliquis) 2.5 mg PO BID@0900,2100 [facility] PRN Reason: Protocol Last Admin: 02/23/17 21:38 Dose: 2.5 mg Cyanocobalamin (Vitamin B12 1000 Mcg Tab) 1,000 mcg PO DAILY [facility] Last Admin: 02/23/17 09:41 Dose: Not Given Dextrose (Dextrose 50% Inj) 0 ml IV STAT PRN; Protocol PRN Reason: Hyglycemia Protocol Last Admin: 02/22/17 21:25 Dose: 50 ml Dextrose (Glutose 15) 0 gm PO ONCE PRN; Protocol PRN Reason: Hypoglycemia Protocol Dextrose (Dextrose 50% Inj) 0 ml IV STAT PRN; Protocol PRN Reason: Hyglycemia Protocol Dextrose (Glutose 15) 0 gm PO ONCE PRN; Protocol PRN Reason: Hypoglycemia Protocol Folic Acid (Folic Acid) 1 mg PO DAILY [facility] Last Admin: 02/23/17 09:40 Dose: Not Given Glucagon (Glucagen Diagnostic Kit) 0 mg IM STAT PRN; Protocol PRN Reason: Hypoglycemia Protocol Glucagon (Glucagen Diagnostic Kit) 0 mg IM STAT PRN; Protocol PRN Reason: Hypoglycemia Protocol Tobramycin Sulfate 60 mg/ (Sodium Chloride) 101.5 mls @ 100 mls/hr IV Q8 [facility] Last Admin: 02/24/17 00:50 Dose: 100 mls/hr Linezolid (Zyvox 600mg/300ml D5w) 600 mg in 300 mls @ 300 mls/hr IVPB Q12 [facility] Last Admin: 02/23/17 21:48 Dose: 300 mls/hr Dextrose/Sodium Chloride (Dextrose 5%/0.45% Ns 1000 Ml) 1,000 mls @ 100 mls/hr IV .Q10H [facility] Stop: 02/25/17 06:02 Last Admin: 02/24/17 06:28 Dose: 100 mls/hr Insulin Detemir (Levemir) 10 units SC HS [facility] Last Admin: 02/23/17 21:52 Dose: 10 unit Insulin Human Regular (Humulin R) 0 units SC ACHS [facility] PRN Reason: Protocol Last Admin: 02/23/17 21:40 Dose: Not Given Metoprolol Tartrate (Lopressor) 12.5 mg PO Q12H [facility] Last Admin: 02/24/17 00:48 Dose: Not Given Olanzapine (Zyprexa) 10 mg PO DAILY [facility] Last Admin: 02/23/17 09:42 Dose: Not Given Pantoprazole Sodium (Protonix Ec Tab) 40 mg PO DAILY [facility] Last Admin: 02/23/17 09:41 Dose: Not Given Potassium Chloride (K-Dur 20 Meq Er Tab) 20 meq PO DAILY [facility] Last Admin: 02/23/17 09:41 Dose: Not Given Tamsulosin HCl (Flomax) 0.4 mg PO DAILY [facility] Last Admin: 02/23/17 09:40 Dose: Not Given Zinc Sulfate (Zinc Sulfate 220 Mg Cap) 220 mg PO DAILY [facility] Last Admin: 02/23/17 09:42 Dose: Not Given - Labs Labs: 02/23/17 11:30 02/23/17 11:30 PT 15.1 Seconds (9.8-13.1) H 02/19/17 14:08 INR 1.3 (0.9-1.2) H 02/19/17 14:08 APTT 30.8 Seconds (25.6-37.1) 02/19/17 14:08 - Constitutional Appears: Non-toxic, No Acute Distress - Extremities Exam Additional comments: Bilateral lower extremity contractures, dressings appear cdi - Back Exam Additional comments: - wound VAC functioning - Neurological Exam Neurological Exam: Alert, Awake - Skin Skin Exam: Normal Color, Warm Assessment and Plan - Assessment and Plan (Free Text) Assessment: 61M with PMH of quadriplegia and colostomy with chronic large stage 4 sacral/ gluteal ulcer Sacral decubitus ulcer with healthy granulation tissue Plan: Plan: - continue IVF - Continue antibiotics per ID - Wound VAC management, poss change today - Continue woundcare Further rec per Attending
--- NOTE | 2017-02-24 09:51 | CP.PCM.PN ---
Subjective - Date & Time of Evaluation Date of Evaluation: 02/24/17 Time of Evaluation: 09:35 - Subjective Subjective: Patient was seen and examined at the bedside. Wound Vac was changed yesterday by wound care service. Objective - Vital Signs/Intake and Output Vital Signs (last 24 hours): Temp Pulse Resp BP Pulse Ox 97.7 F 72 18 123/78 100 02/24/17 08:00 02/24/17 08:00 02/24/17 08:00 02/24/17 08:00 02/24/17 08:00 - Medications Medications: Current Medications Apixaban (Eliquis) 2.5 mg PO BID@0900,2100 [facility] PRN Reason: Protocol Last Admin: 02/23/17 21:38 Dose: 2.5 mg Cyanocobalamin (Vitamin B12 1000 Mcg Tab) 1,000 mcg PO DAILY [facility] Last Admin: 02/23/17 09:41 Dose: Not Given Dextrose (Dextrose 50% Inj) 0 ml IV STAT PRN; Protocol PRN Reason: Hyglycemia Protocol Last Admin: 02/22/17 21:25 Dose: 50 ml Dextrose (Glutose 15) 0 gm PO ONCE PRN; Protocol PRN Reason: Hypoglycemia Protocol Dextrose (Dextrose 50% Inj) 0 ml IV STAT PRN; Protocol PRN Reason: Hyglycemia Protocol Dextrose (Glutose 15) 0 gm PO ONCE PRN; Protocol PRN Reason: Hypoglycemia Protocol Folic Acid (Folic Acid) 1 mg PO DAILY [facility] Last Admin: 02/23/17 09:40 Dose: Not Given Glucagon (Glucagen Diagnostic Kit) 0 mg IM STAT PRN; Protocol PRN Reason: Hypoglycemia Protocol Glucagon (Glucagen Diagnostic Kit) 0 mg IM STAT PRN; Protocol PRN Reason: Hypoglycemia Protocol Tobramycin Sulfate 60 mg/ (Sodium Chloride) 101.5 mls @ 100 mls/hr IV Q8 [facility] Last Admin: 02/24/17 00:50 Dose: 100 mls/hr Linezolid (Zyvox 600mg/300ml D5w) 600 mg in 300 mls @ 300 mls/hr IVPB Q12 [facility] Last Admin: 02/23/17 21:48 Dose: 300 mls/hr Dextrose/Sodium Chloride (Dextrose 5%/0.45% Ns 1000 Ml) 1,000 mls @ 100 mls/hr IV .Q10H [facility] Stop: 02/25/17 06:02 Last Admin: 02/24/17 06:28 Dose: 100 mls/hr Insulin Detemir (Levemir) 10 units SC [facility] Last Admin: 02/23/17 21:52 Dose: 10 unit Insulin Human Regular (Humulin R) 0 units SC [facility] PRN Reason: Protocol Last Admin: 02/23/17 21:40 Dose: Not Given Metoprolol Tartrate (Lopressor) 12.5 mg PO Q12H [facility] Last Admin: 02/24/17 00:48 Dose: Not Given Olanzapine (Zyprexa) 10 mg PO DAILY [facility] Last Admin: 02/23/17 09:42 Dose: Not Given Pantoprazole Sodium (Protonix Ec Tab) 40 mg PO DAILY [facility] Last Admin: 02/23/17 09:41 Dose: Not Given Potassium Chloride (K-Dur 20 Meq Er Tab) 20 meq PO DAILY [facility] Last Admin: 02/23/17 09:41 Dose: Not Given Tamsulosin HCl (Flomax) 0.4 mg PO DAILY [facility] Last Admin: 02/23/17 09:40 Dose: Not Given Zinc Sulfate (Zinc Sulfate 220 Mg Cap) 220 mg PO DAILY [facility] Last Admin: 02/23/17 09:42 Dose: Not Given - Labs Labs: 02/23/17 11:30 02/23/17 11:30 PT 15.1 Seconds (9.8-13.1) H 02/19/17 14:08 INR 1.3 (0.9-1.2) H 02/19/17 14:08 APTT 30.8 Seconds (25.6-37.1) 02/19/17 14:08 - Constitutional Appears: Well, Non-toxic, No Acute Distress - Head Exam Head Exam: ATRAUMATIC, NORMAL INSPECTION, NORMOCEPHALIC - Eye Exam Eye Exam: EOMI, Normal appearance, PERRL Pupil Exam: NORMAL ACCOMODATION, PERRL - ENT Exam ENT Exam: Mucous Membranes Moist - Respiratory Exam Respiratory Exam: NORMAL BREATHING PATTERN - Cardiovascular Exam Cardiovascular Exam: REGULAR RHYTHM, +S1, +S2 - GI/Abdominal Exam GI & Abdominal Exam: Soft, Normal Bowel Sounds Additional comments: NT, ND, colostomy in place - Rectal Exam Rectal Exam: Deferred - Neurological Exam Neurological Exam: Alert, Awake - Psychiatric Exam Psychiatric exam: Normal Affect, Normal Mood - Skin Skin Exam: Dry, Warm Additional comments: sacral decubitus ulcer to with Wound Vac in place Assessment and Plan - Assessment and Plan (Free Text) Assessment: 61 y.o. male with sacral decubitus ulcer Plan: - Continue diet - Continue antibiotics - Wound Vac changes by wound care team - Turn patient every 2 hours - No general surgery intervention at present time - General surgery will sign off - Please re-consult as needed
--- NOTE | 2017-02-24 10:07 | CP.PCM.PN ---
Subjective - Date & Time of Evaluation Date of Evaluation: 02/24/17 Time of Evaluation: 09:00 - Subjective Subjective: seen on rounds switched to zyvox / tobra wound care continues Objective - Vital Signs/Intake and Output Vital Signs (last 24 hours): Temp Pulse Resp BP Pulse Ox 97.7 F 72 18 123/78 100 02/24/17 08:00 02/24/17 08:00 02/24/17 08:00 02/24/17 08:00 02/24/17 08:00 - Medications Medications: Current Medications Apixaban (Eliquis) 2.5 mg PO BID@0900,2100 [facility] PRN Reason: Protocol Last Admin: 02/23/17 21:38 Dose: 2.5 mg Cyanocobalamin (Vitamin B12 1000 Mcg Tab) 1,000 mcg PO DAILY [facility] Last Admin: 02/23/17 09:41 Dose: Not Given Dextrose (Dextrose 50% Inj) 0 ml IV STAT PRN; Protocol PRN Reason: Hyglycemia Protocol Last Admin: 02/22/17 21:25 Dose: 50 ml Dextrose (Glutose 15) 0 gm PO ONCE PRN; Protocol PRN Reason: Hypoglycemia Protocol Dextrose (Dextrose 50% Inj) 0 ml IV STAT PRN; Protocol PRN Reason: Hyglycemia Protocol Dextrose (Glutose 15) 0 gm PO ONCE PRN; Protocol PRN Reason: Hypoglycemia Protocol Folic Acid (Folic Acid) 1 mg PO DAILY [facility] Last Admin: 02/23/17 09:40 Dose: Not Given Glucagon (Glucagen Diagnostic Kit) 0 mg IM STAT PRN; Protocol PRN Reason: Hypoglycemia Protocol Glucagon (Glucagen Diagnostic Kit) 0 mg IM STAT PRN; Protocol PRN Reason: Hypoglycemia Protocol Tobramycin Sulfate 60 mg/ (Sodium Chloride) 101.5 mls @ 100 mls/hr IV Q8 [facility] Last Admin: 02/24/17 00:50 Dose: 100 mls/hr Linezolid (Zyvox 600mg/300ml D5w) 600 mg in 300 mls @ 300 mls/hr IVPB Q12 [facility] Last Admin: 02/23/17 21:48 Dose: 300 mls/hr Dextrose/Sodium Chloride (Dextrose 5%/0.45% Ns 1000 Ml) 1,000 mls @ 100 mls/hr IV .Q10H [facility] Stop: 02/25/17 06:02 Last Admin: 02/24/17 06:28 Dose: 100 mls/hr Insulin Detemir (Levemir) 10 units SC HS [facility] Last Admin: 02/23/17 21:52 Dose: 10 unit Insulin Human Regular (Humulin R) 0 units SC [facility] PRN Reason: Protocol Last Admin: 02/23/17 21:40 Dose: Not Given Metoprolol Tartrate (Lopressor) 12.5 mg PO Q12H [facility] Last Admin: 02/24/17 00:48 Dose: Not Given Olanzapine (Zyprexa) 10 mg PO DAILY [facility] Last Admin: 02/23/17 09:42 Dose: Not Given Pantoprazole Sodium (Protonix Ec Tab) 40 mg PO DAILY [facility] Last Admin: 02/23/17 09:41 Dose: Not Given Potassium Chloride (K-Dur 20 Meq Er Tab) 20 meq PO DAILY [facility] Last Admin: 02/23/17 09:41 Dose: Not Given Tamsulosin HCl (Flomax) 0.4 mg PO DAILY [facility] Last Admin: 02/23/17 09:40 Dose: Not Given Zinc Sulfate (Zinc Sulfate 220 Mg Cap) 220 mg PO DAILY [facility] Last Admin: 02/23/17 09:42 Dose: Not Given - Labs Labs: 02/23/17 11:30 02/23/17 11:30 PT 15.1 Seconds (9.8-13.1) H 02/19/17 14:08 INR 1.3 (0.9-1.2) H 02/19/17 14:08 APTT 30.8 Seconds (25.6-37.1) 02/19/17 14:08 - Constitutional Appears: Non-toxic, Chronically Ill - Head Exam Head Exam: NORMOCEPHALIC - Eye Exam Eye Exam: PERRL Pupil Exam: NORMAL ACCOMODATION - ENT Exam ENT Exam: Mucous Membranes Dry - Neck Exam Neck Exam: absent: Lymphadenopathy - Respiratory Exam Respiratory Exam: Decreased Breath Sounds, Rhonchi - Cardiovascular Exam Cardiovascular Exam: REGULAR RHYTHM - GI/Abdominal Exam GI & Abdominal Exam: Distended, Soft. absent: Tenderness Assessment and Plan (1) Decubitus ulcer Status: Acute (2) Sepsis Status: Acute - Assessment and Plan (Free Text) Assessment: cont rx
[2017-02-24] MEDS: Linezolid 600 mg in D5W 300 ml 600 MG/300 ML BAG IVPB SCH ×2 (11:00→22:02)
[2017-02-24] MEDS: Potassium Chloride 20 mEq ER Tab PO SCH (11:02)
[2017-02-24] MEDS: Pantoprazole 40 mg EC Tab PO SCH (11:03)
[2017-02-24 12:17] LABS: BLOOD UREA NITROGEN 19 mg/dl (9-20); CALCIUM 7.3 mg/dL (8.4-10.2); CARBON DIOXIDE 15 mmol/L (22-30); CHLORIDE 115 mmol/L (98-107); GFR AFRICAN-AMERICAN > 60; GLUCOSE,RANDOM 104 mg/dL (75-110); POTASSIUM 3.6 MMOL/L (3.6-5.0); SODIUM 139 mmol/l (132-148)
[2017-02-24] MEDS: Insulin Regular 100 units/ml SC SCH ×3 (14:24→22:04)
--- NOTE | 2017-02-24 18:43 | CT ---
PROCEDURE: CT Lumbar Spine without contrast HISTORY: sacrum, r/o osteo, decubitus COMPARISON: None. TECHNIQUE: Axial computed tomography images were obtained of the lumbar spine without the use of intravenous contrast. Coronal and sagittal reformatted images were created and reviewed. Radiation dose: Total exam DLP = 1398.52 mGy-cm. This CT exam was performed using one or more of the following dose reduction techniques: Automated exposure control, adjustment of the mA and/or kV according to patient size, and/or use of iterative reconstruction technique. FINDINGS: VERTEBRAE: Diffuse ankylosing and bridging osteophyte formation as well as calcified ligament seen at the lumbar spine. Diffuse osteopenia seen. No evidence of compression fracture or destructive bony lesion. DISCS/SPINAL CANAL/NEURAL FORAMINA: L1-2: No evidence of significant stenosis. L2-3: No evidence of significant stenosis. Small osteophyte disc bulging complex. L3-4: No evidence of significant spinal or neural foraminal narrowing. L4-5: No evidence of significant stenosis. L5-S1: No evidence of significant stenosis. PARASPINAL SOFT TISSUES: No evidence of acute pathology in the visualized paraspinal soft tissue. Partially imaged bilateral small pleural effusions. No evidence of decubitus ulcer at the visualized portion of the sacrum. OTHER FINDINGS: None. IMPRESSION: The study is not including the sacrum and coccyx region. Diffuse lumbar spine ankylosing and calcified ligament and bridging osteophyte. Multilevel small disc bulging osteophyte complex without evidence of significant spinal or neural foraminal narrowing. Small bilateral pleural effusions.
[2017-02-24] MEDS: Insulin Detemir 100 Units/ml Inj SC SCH (22:04)
[2017-02-25] MEDS: Tobramycin inj 60 MG in Sodium Chloride 0.9% 100 ML IV SCH ×3 (00:02→16:17)
[2017-02-25] MEDS: Insulin Regular 100 units/ml SC SCH ×4 (06:38→22:00)
[2017-02-25 07:26] LABS: BASO % 0.4 % (0.0-2.0); EOS # 0.4 K/uL (0.0-0.7); HEMATOCRIT 32.2 % (35.0-51.0); LYMPH # 1.4 K/uL (1.0-4.3); LYMPH % 15.5 % (20.0-40.0); MEAN CELL VOLUME 94.3 fl (80.0-94.0); MEAN CORPUSCULAR HEMOGLOBIN 29.4 pg (27.0-31.0); MEAN CORPUSCULAR HGB CONC 31.2 g/dL (33.0-37.0); MEAN PLATELET VOLUME 8.6 fl (7.2-11.7); MONO # 0.8 K/uL (0.0-0.8); MONO % 8.5 % (0.0-10.0); NEUT # 6.7 K/uL (1.8-7.0); NEUT % 71.6 % (50.0-75.0); NRBC % 0.3 % (0.0-0.0); RED CELL DISTRIBUTION WIDTH 19.2 % (11.5-14.5); WHITE BLOOD COUNT 9.3 K/uL (4.8-10.8)
[2017-02-25 07:33] LABS: ALB/GLOB RATIO 0.6 (1.0-2.1); ALKALINE PHOSPHATASE 88 U/L (38-126); ALT/SGPT 32 U/L (21-72); AST/SGOT 21 U/L (17-59); BILIRUBIN,TOTAL 0.2 mg/dl (0.2-1.3); BLOOD UREA NITROGEN 18 mg/dl (9-20); CALCIUM 7.1 mg/dL (8.4-10.2); CARBON DIOXIDE 12 mmol/L (22-30); CHLORIDE 114 mmol/L (98-107); GFR AFRICAN-AMERICAN > 60; GLUCOSE,RANDOM 111 mg/dL (75-110); POTASSIUM 3.4 MMOL/L (3.6-5.0); SODIUM 136 mmol/l (132-148); TOTAL PROTEIN 5.6 G/DL (6.3-8.2)
--- NOTE | 2017-02-25 07:47 | CP.PCM.PN ---
Subjective - Date & Time of Evaluation Date of Evaluation: 02/25/17 Time of Evaluation: 08:40 - Subjective Subjective: 61 y/o male with altered mental status with PMHx of DM, PE, paraplegic, osteomyelitis and bipolar disorder was seen at bedside for lower extremity wounds and heel eschars bilaterally. Patient is awake but does not respond to commands. Patient was unable to communicate secondary to altered mental status. Objective - Vital Signs/Intake and Output Vital Signs (last 24 hours): Temp Pulse Resp BP Pulse Ox 97.3 F L 63 20 94/60 L 100 02/25/17 05:00 02/25/17 05:00 02/25/17 05:00 02/25/17 05:00 02/25/17 05:00 Intake and Output: 02/25/17 02/25/17 06:59 18:59 Output Total 750 Balance -750 - Medications Medications: Current Medications Apixaban (Eliquis) 2.5 mg PO BID@0900,2100 [facility] PRN Reason: Protocol Last Admin: 02/24/17 22:03 Dose: 2.5 mg Cyanocobalamin (Vitamin B12 1000 Mcg Tab) 1,000 mcg PO DAILY [facility] Last Admin: 02/24/17 11:04 Dose: 1,000 mcg Dextrose (Dextrose 50% Inj) 0 ml IV STAT PRN; Protocol PRN Reason: Hyglycemia Protocol Last Admin: 02/22/17 21:25 Dose: 50 ml Dextrose (Glutose 15) 0 gm PO ONCE PRN; Protocol PRN Reason: Hypoglycemia Protocol Dextrose (Dextrose 50% Inj) 0 ml IV STAT PRN; Protocol PRN Reason: Hyglycemia Protocol Dextrose (Glutose 15) 0 gm PO ONCE PRN; Protocol PRN Reason: Hypoglycemia Protocol Folic Acid (Folic Acid) 1 mg PO DAILY [facility] Last Admin: 02/24/17 11:02 Dose: 1 mg Glucagon (Glucagen Diagnostic Kit) 0 mg IM STAT PRN; Protocol PRN Reason: Hypoglycemia Protocol Glucagon (Glucagen Diagnostic Kit) 0 mg IM STAT PRN; Protocol PRN Reason: Hypoglycemia Protocol Tobramycin Sulfate 60 mg/ (Sodium Chloride) 101.5 mls @ 100 mls/hr IV Q8 [facility] Last Admin: 02/25/17 00:02 Dose: 100 mls/hr Linezolid (Zyvox 600mg/300ml D5w) 600 mg in 300 mls @ 300 mls/hr IVPB Q12 [facility] Last Admin: 02/24/17 22:02 Dose: 300 mls/hr Insulin Detemir (Levemir) 10 units SC HS [facility] Last Admin: 02/24/17 22:04 Dose: 10 unit Insulin Human Regular (Humulin R) 0 units SC ACHS [facility] PRN Reason: Protocol Last Admin: 02/25/17 06:38 Dose: Not Given Metoprolol Tartrate (Lopressor) 12.5 mg PO Q12H [facility] Last Admin: 02/25/17 00:02 Dose: Not Given Olanzapine (Zyprexa) 10 mg PO DAILY [facility] Last Admin: 02/24/17 11:04 Dose: 10 mg Pantoprazole Sodium (Protonix Ec Tab) 40 mg PO DAILY [facility] Last Admin: 02/24/17 11:03 Dose: 40 mg Potassium Chloride (K-Dur 20 Meq Er Tab) 20 meq PO DAILY [facility] Last Admin: 02/24/17 11:02 Dose: 20 meq Tamsulosin HCl (Flomax) 0.4 mg PO DAILY [facility] Last Admin: 02/24/17 11:02 Dose: 0.4 mg Zinc Sulfate (Zinc Sulfate 220 Mg Cap) 220 mg PO DAILY [facility] Last Admin: 02/24/17 11:04 Dose: 220 mg - Labs Labs: 02/25/17 05:45 02/25/17 05:45 PT 15.1 Seconds (9.8-13.1) H 02/19/17 14:08 INR 1.3 (0.9-1.2) H 02/19/17 14:08 APTT 30.8 Seconds (25.6-37.1) 02/19/17 14:08 - Constitutional Appears: Well, Non-toxic, No Acute Distress - Extremities Exam Additional comments: Vasc: DP 2/4 B/L, PT 2/4 B/L, CERTIFIED ALCOHOL AND DRUG COUNSELOR <3 seconds, no edema noted bilaterally, temperature gradient WNL Ortho: unable to perform secondary to altered mental status Neuro: unable to perform secondary to altered mental status Derm: superficial ulcerations diffuse along the anterior lower leg extremity bilaterally and posterior along the mid calf B/L. Stable necrotic eschar noted to the right heel and pre-ulcerative lesion noted to the left heel. Superficial ulcerations exhibit mild serosanguinous drainage; no purulence, no malodor, no ascending cellulitis, or no probe to bone noted - Neurological Exam Neurological Exam: Alert, Awake, Oriented x3 - Psychiatric Exam Psychiatric exam: Normal Affect, Normal Mood Assessment and Plan - Assessment and Plan (Free Text) Assessment: 61 y/o male seen at bedside for lower extremity wounds bilaterally secondary to unknown etiology Plan: Patient seen, examined, and evaluated. Discussed with attending Dr. Estrada Discussed plan with Dr. Matthews. Chart, labs and vitals reviewed. Continue IV abx as per ID. Lower leg extremity ulcers and eschars were dressed with xeroform, DSD, ABD, and kerlix. Multipodus boots for offloading heels was applied. Patient will continue to be followed while in house.
[2017-02-25] MEDS: Linezolid 600 mg in D5W 300 ml 600 MG/300 ML BAG IVPB SCH ×2 (09:03→21:23)
[2017-02-25] MEDS: Potassium Chloride 20 mEq ER Tab PO SCH (09:04)
[2017-02-25] MEDS: Pantoprazole 40 mg EC Tab PO SCH (09:04)
[2017-02-25] MEDS ORDERED: Potassium Chloride 20 mEq/15 ml LIQ UD PO ONE (09:26)
--- NOTE | 2017-02-25 13:27 | CP.PCM.PN ---
Subjective - Date & Time of Evaluation Date of Evaluation: 02/25/17 Time of Evaluation: 08:00 - Subjective Subjective: EVENTS NOTED IV RX RENEWED Objective - Vital Signs/Intake and Output Vital Signs (last 24 hours): Temp Pulse Resp BP Pulse Ox 97.5 F L 69 18 105/64 100 02/25/17 12:37 02/25/17 12:37 02/25/17 12:37 02/25/17 12:37 02/25/17 12:37 Intake and Output: 02/25/17 02/25/17 06:59 18:59 Output Total 750 Balance -750 - Medications Medications: Current Medications Apixaban (Eliquis) 2.5 mg PO BID@0900,2100 [facility] PRN Reason: Protocol Last Admin: 02/25/17 09:04 Dose: 2.5 mg Cyanocobalamin (Vitamin B12 1000 Mcg Tab) 1,000 mcg PO DAILY [facility] Last Admin: 02/25/17 09:05 Dose: 1,000 mcg Dextrose (Dextrose 50% Inj) 0 ml IV STAT PRN; Protocol PRN Reason: Hyglycemia Protocol Last Admin: 02/22/17 21:25 Dose: 50 ml Dextrose (Glutose 15) 0 gm PO ONCE PRN; Protocol PRN Reason: Hypoglycemia Protocol Dextrose (Dextrose 50% Inj) 0 ml IV STAT PRN; Protocol PRN Reason: Hyglycemia Protocol Dextrose (Glutose 15) 0 gm PO ONCE PRN; Protocol PRN Reason: Hypoglycemia Protocol Folic Acid (Folic Acid) 1 mg PO DAILY [facility] Last Admin: 02/25/17 09:04 Dose: 1 mg Glucagon (Glucagen Diagnostic Kit) 0 mg IM STAT PRN; Protocol PRN Reason: Hypoglycemia Protocol Glucagon (Glucagen Diagnostic Kit) 0 mg IM STAT PRN; Protocol PRN Reason: Hypoglycemia Protocol Tobramycin Sulfate 60 mg/ (Sodium Chloride) 101.5 mls @ 100 mls/hr IV Q8 [facility] Last Admin: 02/25/17 08:00 Dose: 100 mls/hr Linezolid (Zyvox 600mg/300ml D5w) 600 mg in 300 mls @ 300 mls/hr IVPB Q12 [facility] Last Admin: 02/25/17 09:03 Dose: 300 mls/hr Insulin Detemir (Levemir) 10 units SC HS [facility] Last Admin: 02/24/17 22:04 Dose: 10 unit Insulin Human Regular (Humulin R) 0 units SC ACHS [facility] PRN Reason: Protocol Last Admin: 02/25/17 06:38 Dose: Not Given Metoprolol Tartrate (Lopressor) 12.5 mg PO Q12H [facility] Last Admin: 02/25/17 00:02 Dose: Not Given Olanzapine (Zyprexa) 10 mg PO DAILY [facility] Last Admin: 02/25/17 09:05 Dose: 10 mg Pantoprazole Sodium (Protonix Ec Tab) 40 mg PO DAILY [facility] Last Admin: 02/25/17 09:04 Dose: 40 mg Potassium Chloride (K-Dur 20 Meq Er Tab) 20 meq PO DAILY [facility] Last Admin: 02/25/17 09:04 Dose: 20 meq Tamsulosin HCl (Flomax) 0.4 mg PO DAILY [facility] Last Admin: 02/25/17 09:04 Dose: 0.4 mg Zinc Sulfate (Zinc Sulfate 220 Mg Cap) 220 mg PO DAILY [facility] Last Admin: 02/25/17 09:05 Dose: 220 mg - Labs Labs: 02/25/17 05:45 02/25/17 05:45 PT 15.1 Seconds (9.8-13.1) H 02/19/17 14:08 INR 1.3 (0.9-1.2) H 02/19/17 14:08 APTT 30.8 Seconds (25.6-37.1) 02/19/17 14:08 - Constitutional Appears: Non-toxic, Chronically Ill - Head Exam Head Exam: NORMOCEPHALIC - Eye Exam Eye Exam: absent: Scleral icterus - ENT Exam ENT Exam: Mucous Membranes Dry, Normal External Ear Exam - Respiratory Exam Respiratory Exam: Decreased Breath Sounds, Rhonchi - Cardiovascular Exam Cardiovascular Exam: REGULAR RHYTHM, +S1, +S2 - GI/Abdominal Exam GI & Abdominal Exam: Distended - Extremities Exam Extremities Exam: Pedal Edema - Back Exam Back Exam: absent: CVA tenderness (L) - Neurological Exam Neurological Exam: Altered Assessment and Plan (1) Decubitus ulcer Status: Acute (2) Sepsis Status: Acute
--- NOTE | 2017-02-25 15:36 | CT ---
PROCEDURE: CT Pelvis without contrast HISTORY: SACRUM COMPARISON: None. TECHNIQUE: Contiguous axial images of the pelvis . No intravenous or oral contrast given. Coronal and sagittal reformats generated. Radiation dose: Total exam DLP = 1436.59 mGy-cm. This CT exam was performed using one or more of the following dose reduction techniques: Automated exposure control, adjustment of the mA and/or kV according to patient size, and/or use of iterative reconstruction technique. FINDINGS: BLADDER: The bladder is collapsed. There is a Mcclain catheter seen at somewhat low position with the Mcclain catheter balloon in the distal portion of the prostate. Please correlate. Clinically for Mcclain catheter malposition and malfunction. REPRODUCTIVE ORGANS: Unremarkable. VISUALIZED BOWEL: Unremarkable. PERITONEUM: Unremarkable, as visualized. No free fluid. No free air. LYMPH NODES: Unremarkable. No enlarged lymph nodes. BONES: There is large bony destruction at the distal portion of the sacrum involving S1 and complete destruction of the coccyx spine. There is also bony destruction at the posterior aspect of the left posterior pubic ramus and adjacent ischial bone. Findings consistent with osteomyelitis and bony destruction. There is deformity and partial destruction of the left femoral head associated with large left hip effusion. The possibility of septic arthritis also should be considered associated with osteomyelitis of the left femoral head. VASCULATURE: Unremarkable. OTHER FINDINGS: There is a large skin and subcutaneous defect at the midline posterior pelvis and at the left buttock consistent with large decubitus ulcer. There is also large decubitus ulcer posterior to the right is scalp bone and posterior pubic ramus. IMPRESSION: Large decubitus ulcer seen at the midline and both buttocks larger on the left. Findings suggestive of osteomyelitis at the distal sacrum and entire coccyx spine as well as at the posterior aspect of the left pubic bone and ischial bone associated with bony destruction. Bony destruction at the left femoral head associated with large joint effusion at the left hip joint suspicious for septic arthritis and osteomyelitis. Sclerotic changes at the posterior aspect of the right pubic ramus could be due to chronic osteomyelitis. Low position of the Mcclain catheter. Please correlate clinically.
[2017-02-25] MEDS: Insulin Detemir 100 Units/ml Inj SC SCH (22:00)
[2017-02-26] MEDS: Tobramycin inj 60 MG in Sodium Chloride 0.9% 100 ML IV SCH ×3 (01:05→16:35)
[2017-02-26] MEDS: Insulin Regular 100 units/ml SC SCH ×4 (07:00→22:12)
[2017-02-26] MEDS: Potassium Chloride 20 mEq ER Tab PO SCH (09:23)
[2017-02-26] MEDS: Pantoprazole 40 mg EC Tab PO SCH (09:23)
[2017-02-26] MEDS: Linezolid 600 mg in D5W 300 ml 600 MG/300 ML BAG IVPB SCH ×2 (09:25→21:00)
--- NOTE | 2017-02-26 15:30 | CP.PCM.PN ---
Subjective - Date & Time of Evaluation Date of Evaluation: 02/26/17 Time of Evaluation: 09:00 - Subjective Subjective: remians lethargic bed bound has hx OM dating back to Oct 2016 at least at that time had fungemia, sepsis and required debridement of sacrum received 8 weeks iv rx at that time likely needs surgical debridement of bone / ?disarticulation - would consider contacting POA for guidance and possible palliative care eval Objective - Vital Signs/Intake and Output Vital Signs (last 24 hours): Temp Pulse Resp BP Pulse Ox 97.4 F L 68 20 81/49 L 92 L 02/26/17 13:00 02/26/17 13:04 02/26/17 13:00 02/26/17 13:04 02/26/17 13:00 Intake and Output: 02/26/17 02/26/17 06:59 18:59 Intake Total 1300 880 Output Total 200 Balance 1100 880 - Medications Medications: Current Medications Apixaban (Eliquis) 2.5 mg PO BID@0900,2100 [facility] PRN Reason: Protocol Last Admin: 02/26/17 09:22 Dose: 2.5 mg Cyanocobalamin (Vitamin B12 1000 Mcg Tab) 1,000 mcg PO DAILY [facility] Last Admin: 02/26/17 09:25 Dose: 1,000 mcg Dextrose (Dextrose 50% Inj) 0 ml IV STAT PRN; Protocol PRN Reason: Hyglycemia Protocol Last Admin: 02/22/17 21:25 Dose: 50 ml Dextrose (Glutose 15) 0 gm PO ONCE PRN; Protocol PRN Reason: Hypoglycemia Protocol Dextrose (Dextrose 50% Inj) 0 ml IV STAT PRN; Protocol PRN Reason: Hyglycemia Protocol Dextrose (Glutose 15) 0 gm PO ONCE PRN; Protocol PRN Reason: Hypoglycemia Protocol Folic Acid (Folic Acid) 1 mg PO DAILY [facility] Last Admin: 02/26/17 09:23 Dose: 1 mg Glucagon (Glucagen Diagnostic Kit) 0 mg IM STAT PRN; Protocol PRN Reason: Hypoglycemia Protocol Glucagon (Glucagen Diagnostic Kit) 0 mg IM STAT PRN; Protocol PRN Reason: Hypoglycemia Protocol Tobramycin Sulfate 60 mg/ (Sodium Chloride) 101.5 mls @ 100 mls/hr IV Q8 [facility] Last Admin: 02/26/17 09:38 Dose: 100 mls/hr Linezolid (Zyvox 600mg/300ml D5w) 600 mg in 300 mls @ 300 mls/hr IVPB Q12 [facility] Last Admin: 02/26/17 09:25 Dose: 300 mls/hr Insulin Detemir (Levemir) 10 units SC HS [facility] Last Admin: 02/25/17 22:00 Dose: 10 unit Insulin Human Regular (Humulin R) 0 units SC ACHS [facility] PRN Reason: Protocol Last Admin: 02/26/17 12:59 Dose: Not Given Metoprolol Tartrate (Lopressor) 12.5 mg PO Q12H [facility] Last Admin: 02/26/17 13:04 Dose: Not Given Olanzapine (Zyprexa) 10 mg PO DAILY [facility] Last Admin: 02/26/17 09:25 Dose: 10 mg Pantoprazole Sodium (Protonix Ec Tab) 40 mg PO DAILY [facility] Last Admin: 02/26/17 09:23 Dose: 40 mg Potassium Chloride (K-Dur 20 Meq Er Tab) 20 meq PO DAILY [facility] Last Admin: 02/26/17 09:23 Dose: 20 meq Tamsulosin HCl (Flomax) 0.4 mg PO DAILY [facility] Last Admin: 02/26/17 09:22 Dose: 0.4 mg Zinc Sulfate (Zinc Sulfate 220 Mg Cap) 220 mg PO DAILY [facility] Last Admin: 02/26/17 09:25 Dose: 220 mg - Labs Labs: 02/25/17 05:45 02/25/17 05:45 PT 15.1 Seconds (9.8-13.1) H 02/19/17 14:08 INR 1.3 (0.9-1.2) H 02/19/17 14:08 APTT 30.8 Seconds (25.6-37.1) 02/19/17 14:08 - Constitutional Appears: Non-toxic, Chronically Ill - Head Exam Head Exam: NORMOCEPHALIC - Eye Exam Eye Exam: absent: Scleral icterus - ENT Exam ENT Exam: Mucous Membranes Dry - Neck Exam Neck Exam: absent: Lymphadenopathy - Respiratory Exam Respiratory Exam: Decreased Breath Sounds, Rhonchi - Cardiovascular Exam Cardiovascular Exam: REGULAR RHYTHM, +S1, +S2 - GI/Abdominal Exam GI & Abdominal Exam: Distended, Soft - Rectal Exam Rectal Exam: Deferred - Extremities Exam Extremities Exam: absent: Pedal Edema Assessment and Plan (1) Decubitus ulcer Status: Acute (2) Sepsis Status: Acute
[2017-02-26] MEDS: Insulin Detemir 100 Units/ml Inj SC SCH (22:09)
[2017-02-27] MEDS: Tobramycin inj 60 MG in Sodium Chloride 0.9% 100 ML IV SCH ×3 (01:00→17:07)
[2017-02-27 07:06] LABS: BASO % 0.4 % (0.0-2.0); EOS # 0.3 K/uL (0.0-0.7); EOS % 4.1 % (0.0-4.0); HEMATOCRIT 26.9 % (35.0-51.0); LYMPH # 1.3 K/uL (1.0-4.3); LYMPH % 16.9 % (20.0-40.0); MEAN CELL VOLUME 90.9 fl (80.0-94.0); MEAN CORPUSCULAR HEMOGLOBIN 29.3 pg (27.0-31.0); MEAN CORPUSCULAR HGB CONC 32.3 g/dL (33.0-37.0); MEAN PLATELET VOLUME 8.7 fl (7.2-11.7); MONO # 0.4 K/uL (0.0-0.8); MONO % 5.2 % (0.0-10.0); NEUT # 5.8 K/uL (1.8-7.0); NEUT % 73.4 % (50.0-75.0); NRBC % 0.1 % (0.0-0.0); RED CELL DISTRIBUTION WIDTH 18.4 % (11.5-14.5); WHITE BLOOD COUNT 7.9 K/uL (4.8-10.8)
--- NOTE | 2017-02-27 07:09 | CP.PCM.PN ---
Subjective - Date & Time of Evaluation Date of Evaluation: 02/27/17 Time of Evaluation: 07:06 - Subjective Subjective: 61 y/o male with altered mental status with PMHx of DM, PE, paraplegic, osteomyelitis and bipolar disorder was seen at bedside for lower extremity wounds and heel eschars bilaterally. Patient is awake and alert and talking to us today. Patient was unable to communicate about his pain or his leg wounds secondary to altered mental status. Objective - Vital Signs/Intake and Output Vital Signs (last 24 hours): Temp Pulse Resp BP Pulse Ox 98.2 F 75 19 104/56 L 100 02/27/17 04:43 02/27/17 04:43 02/27/17 04:43 02/27/17 04:43 02/27/17 04:43 - Medications Medications: Current Medications Cyanocobalamin (Vitamin B12 1000 Mcg Tab) 1,000 mcg PO DAILY [facility] Last Admin: 02/26/17 09:25 Dose: 1,000 mcg Dextrose (Dextrose 50% Inj) 0 ml IV STAT PRN; Protocol PRN Reason: Hyglycemia Protocol Last Admin: 02/22/17 21:25 Dose: 50 ml Dextrose (Glutose 15) 0 gm PO ONCE PRN; Protocol PRN Reason: Hypoglycemia Protocol Dextrose (Dextrose 50% Inj) 0 ml IV STAT PRN; Protocol PRN Reason: Hyglycemia Protocol Dextrose (Glutose 15) 0 gm PO ONCE PRN; Protocol PRN Reason: Hypoglycemia Protocol Folic Acid (Folic Acid) 1 mg PO DAILY [facility] Last Admin: 02/26/17 09:23 Dose: 1 mg Glucagon (Glucagen Diagnostic Kit) 0 mg IM STAT PRN; Protocol PRN Reason: Hypoglycemia Protocol Glucagon (Glucagen Diagnostic Kit) 0 mg IM STAT PRN; Protocol PRN Reason: Hypoglycemia Protocol Tobramycin Sulfate 60 mg/ (Sodium Chloride) 101.5 mls @ 100 mls/hr IV Q8 [facility] Last Admin: 02/27/17 01:00 Dose: 100 mls/hr Linezolid (Zyvox 600mg/300ml D5w) 600 mg in 300 mls @ 300 mls/hr IVPB Q12 [facility] Last Admin: 02/26/17 21:00 Dose: 300 mls/hr Insulin Detemir (Levemir) 10 units SC HS [facility] Last Admin: 02/26/17 22:09 Dose: 10 unit Insulin Human Regular (Humulin R) 0 units SC ACHS [facility] PRN Reason: Protocol Last Admin: 02/26/17 22:12 Dose: Not Given Metoprolol Tartrate (Lopressor) 12.5 mg PO Q12H [facility] Last Admin: 02/26/17 23:15 Dose: 12.5 mg Olanzapine (Zyprexa) 10 mg PO DAILY [facility] Last Admin: 02/26/17 09:25 Dose: 10 mg Pantoprazole Sodium (Protonix Ec Tab) 40 mg PO DAILY [facility] Last Admin: 02/26/17 09:23 Dose: 40 mg Potassium Chloride (K-Dur 20 Meq Er Tab) 20 meq PO DAILY [facility] Last Admin: 02/26/17 09:23 Dose: 20 meq Tamsulosin HCl (Flomax) 0.4 mg PO DAILY [facility] Last Admin: 02/26/17 09:22 Dose: 0.4 mg Zinc Sulfate (Zinc Sulfate 220 Mg Cap) 220 mg PO DAILY [facility] Last Admin: 02/26/17 09:25 Dose: 220 mg - Labs Labs: 02/25/17 05:45 02/25/17 05:45 PT 15.1 Seconds (9.8-13.1) H 02/19/17 14:08 INR 1.3 (0.9-1.2) H 02/19/17 14:08 APTT 30.8 Seconds (25.6-37.1) 02/19/17 14:08 - Constitutional Appears: Well, Non-toxic, No Acute Distress - Extremities Exam Additional comments: Vasc: DP 2/4 B/L, PT 2/4 B/L, SECTION MAINTAINER <3 seconds, no edema noted bilaterally, temperature gradient WNL Ortho: unable to perform secondary to altered mental status Neuro: unable to perform secondary to altered mental status Derm: superficial ulcerations diffuse along the anterior lower leg extremity bilaterally and posterior along the L mid calf. Stable necrotic eschar noted to the right heel and pre-ulcerative lesion noted to the left heel. Superficial ulcerations exhibit mild serosanguinous drainage; no purulence, no malodor, no ascending cellulitis, or no probe to bone - Neurological Exam Neurological Exam: Alert, Awake, Oriented x3 - Psychiatric Exam Psychiatric exam: Normal Affect, Normal Mood Assessment and Plan - Assessment and Plan (Free Text) Assessment: 61 y/o male seen at bedside for lower extremity wounds bilaterally secondary to unknown etiology Plan: Patient seen, examined, and evaluated. Discussed with attending Dr. Estrada Chart, labs and vitals reviewed. Continue IV abx as per ID. Lower leg extremity ulcers and eschars were dressed with adaptic, DSD, ABD, and kerlix. Patient will continue to be followed while in house.
[2017-02-27 07:28] LABS: ALB/GLOB RATIO 0.5 (1.0-2.1); ALKALINE PHOSPHATASE 82 U/L (38-126); ALT/SGPT 29 U/L (21-72); AST/SGOT 24 U/L (17-59); BILIRUBIN,TOTAL 0.2 mg/dl (0.2-1.3); BLOOD UREA NITROGEN 16 mg/dl (9-20); CALCIUM 7.3 mg/dL (8.4-10.2); CARBON DIOXIDE 16 mmol/L (22-30); CHLORIDE 116 mmol/L (98-107); GFR AFRICAN-AMERICAN > 60; GLUCOSE,RANDOM 94 mg/dL (75-110); POTASSIUM 3.6 MMOL/L (3.6-5.0); SODIUM 139 mmol/l (132-148)
[2017-02-27] MEDS: Insulin Regular 100 units/ml SC SCH ×3 (07:45→17:07)
[2017-02-27 08:33] VITALS: RESP 20
[2017-02-27] MEDS: Pantoprazole 40 mg EC Tab PO SCH (09:01)
[2017-02-27] MEDS: Potassium Chloride 20 mEq ER Tab PO SCH (09:01)
[2017-02-27] MEDS: Linezolid 600 mg in D5W 300 ml 600 MG/300 ML BAG IVPB SCH (09:02)
--- NOTE | 2017-02-27 11:07 | CP.PCM.PCO ---
Assessment and Plan - Assessment and Plan (Free Text) Assessment: Plan for dc discussed with Dr Matthews. Patient to continue iv abx, discharge back to [facility]. Palliative care consult will follow in fdc Continue Tobramycin [id number] and Zyvox 600mg Q12 x 3 weeks with tobramycin levels drawn weekly. Wound vac therapy to continue with dressing changes to be done biweekly.
[2017-02-27 16:06] VITALS: BP 97/62; PULSE 116; TEMP 97.5; O2SAT 97
== END 2017-02-27 17:55 | DRG 584 ==
LOC: H.ER 07:28 → H.ERHOLD 08:42 → H.TEL 11:29
PROVIDERS: ADMIT Family Medicine; ATTEND Family Medicine
DX: A41.9 Sepsis, unspecified organism (principal); G92 Toxic encephalopathy; G82.50 Quadriplegia, unspecified; L89.154 Pressure ulcer of sacral region, stage 4; L89.210 Pressure ulcer of right hip, unstageable; E86.0 Dehydration; E87.6 Hypokalemia; N39.0 Urinary tract infection, site not specified; L97.229 Non-pressure chronic ulcer of left calf with unspecified severity; L97.219 Non-pressure chronic ulcer of right calf with unspecified severity; B96.5 Pseudomonas (aeruginosa) (mallei) (pseudomallei) as the cause of diseases classified elsewhere; E78.00 Pure hypercholesterolemia, unspecified; F31.9 Bipolar disorder, unspecified; E11.9 Type 2 diabetes mellitus without complications; Z93.3 Colostomy status; Z74.01 Bed confinement status; N40.0 Benign prostatic hyperplasia without lower urinary tract symptoms; Z86.711 Personal history of pulmonary embolism; Z88.3 Allergy status to other anti-infective agents; Z91.041 Radiographic dye allergy status; Z91.013 Allergy to seafood; I10 Essential (primary) hypertension; I48.91 Unspecified atrial fibrillation; K29.70 Gastritis, unspecified, without bleeding